=== PATIENT | female | born 1945 | race Two or more races ===

== ENCOUNTER 2024-05-03 11:25 | Day surgery (SDC) | payer OTHER, MEDICAID, SELFPAY ==
[2024-05-03] VITALS (10 sets, daily range): BP systolic 140–209; BP diastolic 54–98; PULSE 51–79; RESP 13–22; TEMP 36.8–37; O2SAT 93–99; BMI 26.2
[2024-05-03] MEDS: hydrALAZINE INJ 20 MG/ML VIAL 10 MG IVP (12:40)
[2024-05-03] MEDS: DiphenhydrAMINE INJ 50 MG/ML VIAL 25 MG IV (13:14)
[2024-05-03] MEDS: MIDAZOLAM INJ 1 MG/ML VIAL 2 ML (ASD USE ONLY) 2 MG IV ×2 (13:14→13:20)
[2024-05-03] MEDS: fentaNYL CIT INJ 50 mCg/ML AMP 2ML (ASD USE ONLY) IV (13:14)
== END 2024-05-03 14:13 | disposition home or self-care (01) ==
PROVIDERS: PCP Physician Assistant; Referring Provider Specialist; Visit Provider Specialist
PROC: (CPT 43239; principal; 2024-05-03 12:15)
DX: K21.00 Gastro-esophageal reflux disease with esophagitis, without bleeding (principal); K29.70 Gastritis, unspecified, without bleeding; K29.50 Unspecified chronic gastritis without bleeding; B96.81 Helicobacter pylori [H. pylori] as the cause of diseases classified elsewhere; E11.9 Type 2 diabetes mellitus without complications; I10 Essential (primary) hypertension; E78.5 Hyperlipidemia, unspecified; Z79.899 Other long term (current) drug therapy; Z79.02 Long term (current) use of antithrombotics/antiplatelets
CPT/HCPCS: 43239; A4649; J0360; J1200; J2250; J3010

== ENCOUNTER → 2024-07-09 | Outpatient (CLI) | payer OTHER, MEDICAID, SELFPAY ==
[2024-07-09 12:56] LABS: Basophils % (Auto) 0 % (0-2.5); Eosinophils # (Auto) 0.2 Thou/mm3 (0.0-0.5); Eosinophils % (Auto) 2 % (0-10); Hematocrit 36.9 % (36.0-46.0); Hemoglobin 12.5 g/dL (12.0-16.0); Immature Granulocytes % (Auto) 1 % (0-0); Immature Granulocytes Auto 0.05 Thou/mm3 (0.00-0.00); Lymphocytes # (Auto) 2.3 Thou/mm3 (1.0-4.8); Lymphocytes % (Auto) 31 % (10-50); Mean Corpuscular HGB Conc 33.9 g/dl (31.0-37.0); Mean Corpuscular Hemoglobin 29.5 pg (25.0-35.0); Mean Corpuscular Volume 87 fL (80-100); Monocytes # (Auto) 0.4 Thou/mm3 (0.0-0.8); Monocytes % (Auto) 6 % (0-12); Neutrophils # (Auto) 4.4 Thou/mm3 (1.8-7.7); Neutrophils % (Auto) 60 % (37-80); Nucleated Red Blood Cell % 0 /100 WBC (0); Platelet Count 253 Thou/mm3 (140-440); RDW Standard Deviation 41.3 fL (36.4-46.3); Red Blood Count 4.24 Miln/mm3 (4.00-5.20); White Blood Count 7.3 Thou/mm3 (3.6-11.0)
[2024-07-09 13:15] LABS: Alanine Aminotransferase 11 U/L (10-49); Albumin, Serum 3.4 gm/dL (3.4-4.8); Albumin/Globulin Ratio 2.1 (1.2-2.2); Alkaline Phosphatase 69 U/L (46-116); Anion Gap 5 (7-16); Aspartate Amino Transferase 11 U/L (0-34); BUN/Creatinine Ratio 19 Ratio (12-20); Bilirubin,Total 0.3 mg/dL (0.3-1.2); Blood Urea Nitrogen 33 mg/dL (9-23); Calcium 8.8 mg/dL (8.3-10.6); Calcium (Corrected) 9.3 mg/dL (8.5-10.1); Carbon Dioxide 24.3 mMol/L (20.0-31.0); Chloride 109 mMol/L (98-107); Creatinine (Component) 1.7 mg/dL (0.6-1.3); Globulin 1.6 gm/dL (2.3-3.5); Glucose 174 mg/dL (74-106); Osmolality,Calculated 286 (275-295); Potassium 4.2 mMol/L (3.4-5.1); Sodium 138 mMol/L (136-145); eGFR 31 See Note
== END | disposition home or self-care (01) ==
LOC: COPL 11:06
PROVIDERS: PCP Family Medicine; Referring Provider Specialist; Visit Provider Specialist
DX: R14.0 Abdominal distension (gaseous) (principal); R10.32 Left lower quadrant pain; R10.31 Right lower quadrant pain
CPT/HCPCS: 36415; 80053; 85025

== ENCOUNTER → 2024-07-11 | Outpatient (CLI) | payer OTHER, MEDICAID, SELFPAY ==
[2024-07-11 10:21] LABS: OBS Performed By LAB; OBS QC OK? Yes
[2024-07-11 14:36] LABS: OBS Developer Expiration Date 2026-09; OBS Developer Lot # 23003
[2024-07-11 14:38] LABS: Occult Blood, Stool Negative (Negative); Occult Blood, Stool #2 Negative (Negative); Occult Blood, Stool #3 Negative (Negative)
== END | disposition home or self-care (01) ==
LOC: SLDO 09:54
PROVIDERS: Referring Provider Specialist; Visit Provider Specialist
DX: R14.0 Abdominal distension (gaseous) (principal); R10.31 Right lower quadrant pain; R10.32 Left lower quadrant pain
CPT/HCPCS: 82270

== ENCOUNTER 2024-07-22 08:45 | Day surgery (SDC) | payer OTHER, MEDICAID, SELFPAY ==
[2024-07-19 15:07] VITALS: BMI 27.3
[2024-07-22] VITALS (8 sets, daily range): BP systolic 138–205; BP diastolic 65–88; PULSE 81–90; RESP 12–22; TEMP 36.4–36.7; O2SAT 93–100; BMI 26.5
--- NOTE | 2024-07-22 10:33 | SUR.PHASEII ---
PATIENT INTO RECOVERY WITH NO ACUTE DISTRESS NOTED, V/S STABLE , NO COMPLAINTS OF PAIN OR NAUSEA AT THIS TIME, PATIENT REPOSITIONED FOR COMFORT, REPORT RECEIVED FROM PAMELA GUERRA.
[2024-07-22] MEDS: SODIUM CHLORIDE 0.9% 500 ML 500 ML 20 ML IV (10:35)
[2024-07-22] MEDS: MIDAZOLAM INJ 1 MG/ML VIAL 2 ML (ASD USE ONLY) 2 MG IV (10:36)
[2024-07-22] MEDS: hydrALAZINE INJ 20 MG/ML VIAL (10:36)
[2024-07-22] MEDS: ONDANSETRON INJ 2 MG/ML INJ 2 ML 4 MG IV (10:36)
[2024-07-22] MEDS: fentaNYL CIT INJ 50 mCg/ML AMP 2ML (ASD USE ONLY) IV (10:36)
[2024-07-22] MEDS: DiphenhydrAMINE INJ 50 MG/ML VIAL 25 MG IV (10:38)
== END 2024-07-22 11:12 | disposition home or self-care (01) ==
PROVIDERS: PCP Physician Assistant; Referring Provider Specialist; Visit Provider Specialist
PROC: (CPT 43239; principal; 2024-07-22 13:15)
DX: K20.91 Esophagitis, unspecified with bleeding (principal); K29.61 Other gastritis with bleeding; K29.51 Unspecified chronic gastritis with bleeding
CPT/HCPCS: 43239; A4649; J0360; J1200; J2250; J2405; J3010; J7040

== ENCOUNTER → 2024-09-02 | Outpatient (CLI) | payer OTHER, MEDICAID, SELFPAY ==
[2024-09-02 09:39] LABS: Glucose Estimated Average 186 mg/dL (80-131); Hemoglobin A1C 8.1 % Hgb (4.8-6.0)
[2024-09-02 09:51] LABS: Alanine Aminotransferase 13 U/L (10-49); Albumin, Serum 4.2 gm/dL (3.4-4.8); Albumin/Globulin Ratio 1.7 (1.2-2.2); Alkaline Phosphatase 93 U/L (46-116); Anion Gap 10 (7-16); Aspartate Amino Transferase 16 U/L (0-34); BUN/Creatinine Ratio 21 Ratio (12-20); Bilirubin,Total 0.5 mg/dL (0.3-1.2); Blood Urea Nitrogen 33 mg/dL (9-23); Calcium 9.8 mg/dL (8.3-10.6); Calcium (Corrected) 9.8 mg/dL (8.5-10.1); Carbon Dioxide 25.8 mMol/L (20.0-31.0); Cardiac Risk Estimate 6.3 RATIO (3.7-5.6); Chloride 107 mMol/L (98-107); Cholesterol 290 mg/dL (132-200); Creatinine (Component) 1.6 mg/dL (0.6-1.3); Globulin 2.5 gm/dL (2.3-3.5); Glucose 183 mg/dL (74-106); HDL Cholesterol 46 mg/dL (40-60); LDL Cholesterol,Calculated 183 mg/dL (0-130); Osmolality,Calculated 297 (275-295); Potassium 4.6 mMol/L (3.4-5.1); Sodium 143 mMol/L (136-145); Total Protein 6.7 gm/dL (5.7-8.2); Triglycerides 303 mg/dL (30-150); eGFR 33 See Note
== END | disposition home or self-care (01) ==
LOC: COPL 08:49
PROVIDERS: PCP Family Medicine; Referring Provider Physician Assistant; Visit Provider Physician Assistant
DX: E11.65 Type 2 diabetes mellitus with hyperglycemia (principal); I10 Essential (primary) hypertension; E78.5 Hyperlipidemia, unspecified
CPT/HCPCS: 36415; 80053; 80061; 83036

== ENCOUNTER 2024-09-09 09:45 | Observation (INO) | payer OTHER, MEDICAID, SELFPAY ==
[2024-09-09] VITALS (7 sets, daily range): BP systolic 141–180; BP diastolic 67–79; PULSE 51–59; RESP 16–19; TEMP 35.9–36.5; O2SAT 98–100; BMI 29.2
--- NOTE | 2024-09-09 10:16 | EKG_ITS ---
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
--- NOTE | 2024-09-09 10:17 | PD.EDRME ---
Rapid Medical Screening Exam RME Arrival date/time: 09/09/24 09:45 79-year-old female with a history of type 2 diabetes, hypertension, hyperlipidemia presents to the emergency room with a chief complaint of dizziness and lightheadedness x 10 days. Patient states her dizziness is worse with sudden positional changes. I have greeted and performed a focused initial assessment of this patient. A comprehensive ED assessment and evaluation of the patient, analysis of all test results, and completion of the medical decision making process will be conducted by additional ED providers. Chief Complaint: Dizziness Vital signs reviewed by provider: Yes
[2024-09-09] MEDS: MECLIZINE HCL 25 MG TABLET PO (10:48)
[2024-09-09 11:17] LABS: Basophils % (Auto) 0 % (0-2.5); Eosinophils # (Auto) 0.2 Thou/mm3 (0.0-0.5); Eosinophils % (Auto) 3 % (0-10); Hematocrit 37.2 % (36.0-46.0); Hemoglobin 12.7 g/dL (12.0-16.0); Immature Granulocytes % (Auto) 1 % (0-0); Immature Granulocytes Auto 0.03 Thou/mm3 (0.00-0.00); Lymphocytes # (Auto) 1.6 Thou/mm3 (1.0-4.8); Lymphocytes % (Auto) 26 % (10-50); Mean Corpuscular HGB Conc 34.1 g/dl (31.0-37.0); Mean Corpuscular Hemoglobin 29.1 pg (25.0-35.0); Mean Corpuscular Volume 85 fL (80-100); Monocytes # (Auto) 0.3 Thou/mm3 (0.0-0.8); Monocytes % (Auto) 5 % (0-12); Neutrophils # (Auto) 4.2 Thou/mm3 (1.8-7.7); Neutrophils % (Auto) 66 % (37-80); Nucleated Red Blood Cell % 0 /100 WBC (0); Platelet Count 250 Thou/mm3 (140-440); RDW Standard Deviation 40.4 fL (36.4-46.3); Red Blood Count 4.36 Miln/mm3 (4.00-5.20); White Blood Count 6.4 Thou/mm3 (3.6-11.0)
[2024-09-09 11:33] LABS: Alanine Aminotransferase 11 U/L (10-49); Albumin/Globulin Ratio 1.8 (1.2-2.2); Alkaline Phosphatase 71 U/L (46-116); Anion Gap 8 (7-16); Aspartate Amino Transferase 14 U/L (0-34); BUN/Creatinine Ratio 21 Ratio (12-20); Bilirubin,Total 0.4 mg/dL (0.3-1.2); Blood Urea Nitrogen 35 mg/dL (9-23); Calcium 9.1 mg/dL (8.3-10.6); Calcium (Corrected) 9.1 mg/dL (8.5-10.1); Carbon Dioxide 25.1 mMol/L (20.0-31.0); Chloride 107 mMol/L (98-107); Creatinine (Component) 1.7 mg/dL (0.6-1.3); Estimated Creatinine Clearance 22.8 mL/min (>60); Globulin 2.2 gm/dL (2.3-3.5); Glucose 225 mg/dL (74-106); Osmolality,Calculated 294 (275-295); Potassium 4.7 mMol/L (3.4-5.1); Sodium 140 mMol/L (136-145); Total Protein 6.2 gm/dL (5.7-8.2); Troponin I < 0.020 ng/mL (0.0-0.045); eGFR 31 See Note
[2024-09-09 13:15] LABS: Collection Type, Urine Clean Catch
--- NOTE | 2024-09-09 13:36 | EDNOTE_ITS ---
<Statement entered by Mechelle Ochoa MD - 09/09/24 15:15> As co-signing physician, I was present and available for consult prn. I concur with the plan and care as documented by the midlevel provider. ED General RME/HPI General Chief complaint: Dizziness Stated complaint: DIZZINESS X1 WEEK Time Seen by Provider: 09/09/24 13:35 Arrival date/time: 09/09/24 09:45 CC: Lightheaded dizziness HPI ongoing for the past 10 days. Patient denies fall. States she actually gets dizzy and remains dizzy when sitting up or standing up. No prior history of similar events takes medication for diabetes hypertension hyperlipidemia. No other complaints including chest pain or shortness of breath at this time. Please note patient just stated to me that she stopped her Lasix 1 week ago. RME / HPI RME / HPI narrative: 09/09/24 09:45 79-year-old female with a history of type 2 diabetes, hypertension, hyperlipidemia presents to the emergency room with a chief complaint of dizziness and lightheadedness x 10 days. Patient states her dizziness is worse with sudden positional changes. I have greeted and performed a focused initial assessment of this patient. A comprehensive ED assessment and evaluation of the patient, analysis of all test results, and completion of the medical decision making process will be conducted by additional ED providers. Related Data Home Medications ?Medication ?Instructions ?Recorded ?Confirmed lisinopril 20 mg tablet 40 mg PO QDAY 03/13/1807/22 simvastatin 20 mg tablet 40 mg PO DAILY 03/13/1806/30 amlodipine 10 mg tablet 10 mg PO DAILY 03/02/2306/30 furosemide 40 mg tablet (Lasix) 40 mg PO QDAY PRN Kendall a 03/02/23 09/09/24 gabapentin 300 mg capsule 600 mg PO TID 03/02/2307/22 metoprolol succinate 25 mg 25 mg PO DAILY 03/02/23 tablet,extended release 24 hr ezetimibe 10 mg tablet 10 mg PO QDAY 08/31/2307/22 insulin glargine 100 unit/mL (3 10 unit subcut BIDWMEA L 08/31/23 07/22/24 mL) subcutaneous pen (Lantus Solostar U-100 Insulin) tirzepatide 2.5 mg/0.5 mL 2.5 mg subcut QWEEK 08/31/23 07/22/24 subcutaneous pen injector (Sol) hydrochlorothiazide 25 mg tablet 25 mg PO QDAY 5 07/22/24 pantoprazole 40 mg tablet,delayed 40 mg PO QDAY 07/22/24 release Allergies Allergy/AdvReac Type Severity Reaction Status Date / Time No Known Allergies Allergy Verified 09/09/24 09:46 Review of Systems Review of Systems Narrative Review of Systems: GEN: No fever, no chills, no weight loss EYES: No discharge, no visual changes, no pain HEENT: No ear pain, no congestion, no sore throat PULM: No shortness of breath, no cough, no congestion CV: No chest pain, no dyspnea on exertion, no palpitations GI: No nausea, no vomiting, no diarrhea, no pain, no constipation : No frequency, no urgency, no dysuria MUSC/SKEL: No joint pain, no back pain SKIN: No rash PSYCH: No hallucinations, no depression HEME/LYMPH: No easy bleeding or bruising tendencies NEURO: No weakness, no headache Past Medical History Past Medical History NEUROLOGIC: Positive Neurological Disorders and Peripheral Neuropathy; Negative Seizures CARDIAC: Positive Cardiac Disorders, Hypercholesterolemia, Edema and Hypertension; Negative Congestive Heart Failure RESPIRATORY: Negative Chronic Obstructive Pulmonary Disease (COPD) GASTROINTESTINAL: Positive Gastrointestinal Disorders (ABDOMINAL PAIN AND DIARRHEA AFTER EATING) GENITOURINARY: Negative Genitourinary Disorders, Renal Disease or Kidney Stones REPRODUCTIVE: Positive Previous Pregnancies; Negative Endometriosis MUSCULOSKELETAL: Positive Musculoskeletal Disorders and Arthritis ENT: Positive Cataracts (RIGHT) ENDOCRINE: Positive Endocrine Disorders and Diabetes Mellitus Type 2; Negative Diabetes Mellitus Type 1 or Hypothyroidism HEMATOLOGIC: Negative Blood Disorders PSYCHO/SOCIAL: Positive Depression and Anxiety OTHER HISTORY: Negative Autoimmune Disease, Falls, Blood Transfusions, Anesthesia Reactions, Chicken Pox or Cancer Family History FAMILY HISTORY: Negative Family Psychiatric Problems, Family Respiratory Disorders, Family Cardiac Disorders, Family Gastrointestinal Problems, Family Cancer, Family Surgery or Family Anesthesia Reaction Surgical History SURGICAL: Positive Hysterectomy and Tubal Ligation Social History SMOKING STATUS: Never smoker ED Exam Narrative Physical exam: [General: Not in any acute distress Head normocephalic HEENT: Within acceptable limits Neck is supple nontender Chest equal chest rise nontender to palpation Respiratory: Clear to auscultation no wheezes crackles or rubs CV: Rate rhythm is regular, bradycardic, no murmurs rubs or clicks Abdomen is distended secondary to body habitus soft nontender no masses positive bowel sounds all 4 quadrants Back: No CVA tenderness no spinous process tenderness from cervical spine thoracic and lumbar spine Skin: Intact no petechiae rash induration ulceration or crepitus Extremities: Moving all extremity against resistance cap refill less than 2 seconds neurosensory intact Neuro: Awake alert oriented x3 Glascow coma 15 no focal deficits] Course Quality Measures none Orders Category Date Time Status EKG (ED ONLY) *Do not use* NOW Care 09/09/24 10:16 Completed Orthostatic Vitals NOW Care 09/09/24 10:16 Active Saline [Insert IV] NOW Care 09/09/24 13:38 Active EKG (ED Only) Stat Exams 09/09/24 10:16 Draft CBC Stat Lab 09/09/24 10:55 Completed Comprehensive Metabolic Panel Stat Lab 09/09/24 10:55 Completed Troponin I Stat Lab 09/09/24 10:55 Completed Urinalysis Stat Lab 09/09/24 13:06 Completed Urine Culture Stat Lab 09/09/24 13:06 Received Meclizine HCl [Antivert] Med 09/09/24 10:16 Discontinued 25 mg PO X1 ONE Sodium Chloride 0.9% 500 ml [Ns] 500 ml Med 09/09/24 13:38 Discontinued IV 999 mls/hr Vital Signs Vital signs: Vital Signs Temperature 97.7 F 09/09/24 10:18 Pulse Rate 57 L 09/09/24 10:18 Respiratory Rate 19 09/09/24 10:18 Blood Pressure 141/73 H 09/09/24 10:18 Pulse Oximetry (%) 98 09/09/24 10:18 Oxygen Delivery Method Room Air 09/09/24 10:18 [facility] Patient data External records reviewed:: [facility] previous records Clinical information provided by:: patient Social determinants that could affect healthcare access:: none Patient has the following chronic illnesses:: Hypertension hyperlipidemia diabetes How is presenting disease/condition affected by chronic disease/condition?: u neffected by Evaluation data The following diagnostics were reviewed and interpreted by me:: lab results, radiology exam(s) and EKG tracing(s) Lab and/or radiology exams considered but not ordered:: EKG performed at 1024 shows a ventricular rate of 5 2 [place] interval of 172 QRS 100 QTc of 414 is a sinus bradycardia. When compared to an old EKG there are no significant changes other than that is a regular rate. CBC shows no acute leukocytosis anemia thrombocytopenia CMP shows BUN of 35 creatinine 1.7 glucose of 225 no transaminitis or T. bili elevation Interpretation Summary: Review of the medical record show the patient has a new onset of bradycardia, patient also has CKD that is been ongoing since June. Review of the medications listed in the system show the patient is not on amlodipine 10 mg, as well as metoprolol and hydrochlorothiazide with Lasix. Patient's case discussed at length with the resident for Dr. Villalobos. Agrees to accept the patient for observation. 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 Recently coming off the Lasix I am not sure about her fluid status being part of the problem as well. Resident is in agreement with this plan to observe ops this patient patient is agreement with this plan Medications Medications considered but not ordered:: None Medication administrations:: Medication Administration History Discontinued Medications Sodium Chloride (Ns) 500 mls @ 999 mls/hr IV .Q31M ONE Stop: 09/09/24 14:08 Last Admin: 09/09/24 13:52 Dose: 999 mls/hr Documented By: CS Meclizine HCl (Meclizine Hcl 25 Mg Tablet) 25 mg PO X1 ONE Stop: 09/09/24 10:17 Last Admin: 09/09/24 10:48 Dose: 25 mg Documented By: KM None Consultations Consultation(s) initiated? (list below): No Diagnosis Differential Diagnosis ED Complaint MDM: Symptomatic bradycardia LUKE electrolyte imbalances Most likely diagnosis given after review of the tests above:: Symptomatic bradycardia LUKE Admission Indicated Admission indicated?: indicated Explain why admission is indicated or not indicated:: Requires further medical management Admission Request Was there a request for admission?: No Disposition Plan Disposition Plan: Admit Medical Decision Making Differential Diagnosis Differential Diagnosis: Symptomatic bradycardia LUKE electrolyte imbalances Lab Data 09/09/24 10:55 09/09/24 10:55 Labs: Lab Results 09/09/24 09/09/24 Range/Units 10:55 13:06 WBC 6.4 (3.6-11.0) Thou/mm3 RBC 4.36 (4.00-5.20) Miln/mm3 Hgb 12.7 (12.0-16.0) g/dL Hct 37.2 (36.0-46.0) % MCV 85 (80-100) fL MCH 29.1 (25.0-35.0) pg MCHC 34.1 (31.0-37.0) g/dl RDW Std Deviation 40.4 (36.4-46.3) fL Plt Count 250 (140-440) Thou/mm3 Neut % (Auto) 66 (37-80) % Lymph % (Auto) 26 (10-50) % [place] % (Auto) 5 (0-12) % Eos % (Auto) 3 (0-10) % Baso % (Auto) 0 (0-2.5) % Neut # (Auto) 4.2 (1.8-7.7) Thou/mm3 Lymph # (Auto) 1.6 (1.0-4.8) Thou/mm3 [place] # (Auto) 0.3 (0.0-0.8) Thou/mm3 Eos # (Auto) 0.2 (0.0-0.5) Thou/mm3 Baso # (Auto) 0.0 (0.0-0.2) Thou/mm3 Immature Gran # (Auto) 0.03 H (0.00-0.00) Thou/mm3 Absolute Nucleated RBC 0.00 (0.00-0.00) Thou/mm3 Immature Gran % 1 H (0-0) % Nucleated RBC % 0 (0) /100 WBC Sodium 140 (136-145) mMol/L Potassium 4.7 (3.4-5.1) mMol/L Chloride 107 (98-107) mMol/L Carbon Dioxide 25.1 (20.0-31.0) mMol/L Anion Gap 8 (7-16) BUN 35 H (9-23) mg/dL Creatinine 1.7 H (0.6-1.3) mg/dL Estim Creat Clear Calc 22.8 L (>60) mL/min eGFR 31 L (60 - ) See Note BUN/Creatinine Ratio 21 H (12-20) Ratio Glucose 225 H (74-106) mg/dL Calculated Osmolality 294 (275-295) Calcium 9.1 (8.3-10.6) mg/dL Corrected Calcium 9.1 (8.5-10.1) mg/dL Total Bilirubin 0.4 (0.3-1.2) mg/dL AST 14 (0-34) U/L ALT 11 (10-49) U/L Alkaline Phosphatase 71 (46-116) U/L Troponin I < 0.020 (0.0-0.045) ng/mL Total Protein 6.2 (5.7-8.2) gm/dL Albumin 4.0 (3.4-4.8) gm/dL Globulin 2.2 L (2.3-3.5) gm/dL Albumin/Globulin Ratio 1.8 (1.2-2.2) Ur Collection Type Clean Catch Urine Color Lt-Yellow (Lt Yel-Yel) Urine Clarity Hazy (Clear/Hazy) Urine pH 6.0 (5.0-7.0) Ur Specific [place] 1.017 (1.001-1.035) Urine Protein 3+ A (Neg - Trace) Urine Glucose (UA) 3+ A (Negative) Urine Ketones Negative (Negative) Urine Blood 1+ A (Negative) Urine Nitrite Negative (Negative) Urine Bilirubin Negative (Negative) Urine Urobilinogen (Auto) Negative (0.0-1.0) mg/dL Ur Leukocyte Esterase Positive (Negative) Urine RBC 7 H (0-3) /hpf Urine WBC 42 H (0-5) /hpf Ur Squamous Epith Cells 2 (0-5) /hpf Urine Bacteria None (None) Hyaline Casts < 1 (0-1) /hpf Discharge Plan Plan Patient Disposition: Other Care w/in Hosp ([facility]) Patient condition on transfer: Stable Prescriptions/Referrals Prescriptions/Med Rec: No Action lisinopril 20 mg Tablet 40 mg PO QDAY simvastatin 20 mg Tablet 40 mg PO DAILY amlodipine 10 mg tablet 10 mg PO DAILY gabapentin 300 mg capsule 600 mg PO TID metoprolol succinate 25 mg tablet extended release 24 hr 25 mg PO DAILY furosemide [Lasix] 40 mg tablet 40 mg PO QDAY PRN (Reason: Edema) ezetimibe 10 mg tablet 10 mg PO QDAY insulin glargine [Lantus Solostar U-100 Insulin] 100 unit/mL (3 mL) insulin pen 10 unit subcut BIDWMEAL Rx Instructions: IF BG >200 Mounjaro 2.5 mg/0.5 mL pen injector 2.5 mg SUBCUT QWEEK Rx Instructions: ON SUNDAYS pantoprazole 40 mg tablet,delayed release (DR/EC) 40 mg PO QDAY Patient Comments: TAKE 1 TABLET BY MOUTH EVERY DAY hydrochlorothiazide 25 mg tablet 25 mg PO QDAY Patient Comments: TAKE 1 TABLET BY MOUTH EVERY MORNING FOR 90 DAYS Referrals: Rubia Matthews PA-C [Primary Care Provider] - In 1 week Problem List Clinical Impression: Symptomatic bradycardia, LUKE (acute kidney injury) Patient/Caregiver Discharge Instructions Print Language: Filipino Stand Alone Forms: Jennifer Award Info., Patient Portal Info Letter PA/HOLE DIGGER OPERATOR Supervising Physician PA/HOLE DIGGER OPERATOR Supervising Physician: Bhanu Gunderson ENP
[2024-09-09] MEDS: SODIUM CHLORIDE 0.9% 500 ML 500 ML 999 ML IV (13:52)
[2024-09-09 14:03] LABS: Bilirubin,Urine Negative (Negative); Blood,Urine 1+ (Negative); Color,Urine Lt-Yellow (Lt Yel-Yel); Glucose, Urine 3+ (Negative); Hyaline Casts,Urine < 1 /hpf (0-1); Ketones,Urine Negative (Negative); Leukocyte Esterase,Urine Positive (Negative); Nitrite,Urine Negative (Negative); Protein,Urine 3+ (Neg - Trace); RBC,Urine 7 /hpf (0-3); Specific Gravity,Urine 1.017 (1.001-1.035); Squamous Epithelial Cell,Urine 2 /hpf (0-5); Urobilinogen,Urine Negative mg/dL (0.0-1.0); WBC,Urine 42 /hpf (0-5)
[2024-09-09 14:05] LABS: Clarity,Urine Hazy (Clear/Hazy)
--- NOTE | 2024-09-09 15:06 | ESHP_ITS ---
<Statement entered by Aditya Pro MD - 09/09/24 22:22> I discussed with and supervised the academic intern physician involved in the care of this patient. Patient assessment and plan was discussed with entire medicine team, including my attending. I agree with the assessment and plan as documented by academic intern doctor. Patient care was discussed with my attending physician Dr. Ilda Pro, PGY-2 Documentation for date of: 09/09/24 HPI History of Present Illness Chief complaint: Dizziness History of present illness: Ms. Gamez is a 79-year-old female with past medical history of chronic kidney disease (follows Dr. Oquendo), hypertension, hyperlipidemia, diabetes mellitus, GERD and chronic pain who presented to [facility] emergency department 09/09/2024 with chief complaint of dizziness. Patient reported feeling dizzy at times, exacerbated dizziness on sitting and standing up and also at times with movement of head. Patient denies any similar episodes in the past, patient is on diuretics Lasix and hydrochlorothiazide which she stopped taking recently about 5 to 7 days ago. Patient denies any syncope or presyncopal symptoms, denies any darkness falling in front of the eyes, denies any falls. Patient denies any history of cardiac issues, does report seeing president and cmo Dr Pena more than 3 years ago, was referred by primary care physician back then. Patient follows outpatient with Dr. Mario Stewart as primary care physician, does regular follow-up and follows up with Dr. Oquendo as her wrist hemmer. Patient denies any shortness of breath, chest pain, headache and dysuria. ED course: Patient on presentation complained of dizziness, on presentation vitals significant for blood pressure 141/73, heart rate 57, respiratory 19, temp 97.7, O2 sat 98 on room air. ED labs significant for BUN 35, creatinine 1.7, GFR 31, glucose 225, globulin 2.2. Urine analysis shows urine protein 3+, glucose 3+, blood 1+, leukocyte esterase positive, RBC 7, WBC 42. EKG shows sinus bradycardia. Patient was given meclizine 25 mg p.o. x 1 and 500 cc bolus of NS in ED. Review of Systems Review of Systems Narrative Review of Systems: ROS: -CONSTITUTIONAL: Denies weight loss, fever and chills. -HEENT: Denies changes in vision and hearing. -RESPIRATORY: Denies SOB and cough. -CV: Denies palpitations and Chest Pain. -GI: Denies abdominal pain, nausea, vomiting,constipation and diarrhea. -: Denies dysuria and urinary frequency. -MSK: Denies myalgia and joint pain. -SKIN: Denies rash and pruritus. -NEUROLOGICAL: Denies headache and syncope. Positive for dizziness. -PSYCHIATRIC: Denies recent changes in mood. Denies anxiety and depression. Past Medical History Past Medical History Comments PMH COMMENT: PMH: Positive for chronic kidney disease (follows Dr. Oquendo), hypertension, hyperlipidemia, diabetes melitis, GERD and chronic pain PSHx: Back surgery, shoulder surgery Allergies: No known drug and food allergies Social history: -Smoking: Denies -Alcohol Use: Denies -Illicit Drug Use: Denies -Occupation: Retired Family History: No significant pertinent family history Exam Vital Signs Temp Pulse Resp BP Pulse Ox O2 Del Method 97.5 F 59 L 18 175/75 H 100 Room Air 09/09/24 14:22 09/09/24 14:27 09/09/24 14:22 09/09/24 14:27 09/09/24 14:22 09/09/24 14:22 Narrative Exam Physical Exam General: Awake and in no acute distress. Conversational and non-toxic appearing. HEENT: Normocephalic, atraumatic, mucous membranes moist. Heart: Sinus bradycardia, regular rhythm, no murmurs. Lungs: Clear to auscultation with no wheezing or crackles. Abdomen: Soft, nondistended, nontender, positive bowel sounds. ?No guarding or rebound tenderness. Neurologic: Alert and oriented x3, no gross neurological deficit, and patient able to move all 4 extremities. Extremities: Trace lower extremity edema. Skin: No rash or ecchymoses. Results: Labs 09/10/24 04:27 09/10/24 04:27 Labs: Short CBC 09/09/24 Range/Units 10:55 WBC 6.4 (3.6-11.0) Thou/mm3 Hgb 12.7 (12.0-16.0) g/dL Hct 37.2 (36.0-46.0) % Plt Count 250 (140-440) Thou/mm3 BMP 09/09/24 10:55 Sodium 140 Potassium 4.7 Chloride 107 Carbon Dioxide 25.1 BUN 35 H Creatinine 1.7 H Glucose 225 H Calcium 9.1 Cardiac Enzymes 09/09/24 Range/Units 10:55 Troponin I < 0.020 (0.0-0.045) ng/mL Liver Function 09/09/24 Range/Units 10:55 Total Bilirubin 0.4 (0.3-1.2) mg/dL AST 14 (0-34) U/L ALT 11 (10-49) U/L Alkaline Phosphatase 71 (46-116) U/L Albumin 4.0 (3.4-4.8) gm/dL Urine 09/09/24 Range/Units 13:06 Urine Color Lt-Yellow (Lt Yel-Yel) Urine Clarity Hazy (Clear/Hazy) Urine pH 6.0 (5.0-7.0) Ur Specific [place] 1.017 (1.001-1.035) Urine Protein 3+ A (Neg - Trace) Urine Glucose (UA) 3+ A (Negative) Quality Measures Quality Measures none Advance care planning discussed with:: patient Medications Home Medications and Allergies Home Medications ?Medication ?Instructions ?Recorded ?Confirmed ?Type lisinopril 20 mg tablet 40 mg PO QDAY 03/13/1809/09 History Held on 09/10/24. Instructions: Resume on 09/17/24. Follow up with PCP simvastatin 20 mg tablet 40 mg PO DAILY 03/13/1808/27 History amlodipine 10 mg tablet 10 mg PO DAILY 03/02/2308/27 History furosemide 40 mg tablet (Lasix) 40 mg PO QDAY PRN Kendall a 03/02/23 09/09/24 History Held on 09/10/24. Instructions: Resume on 09/17/24. Follow up with PCP gabapentin 300 mg capsule 300 mg PO TID 03/02/2309/09 History ezetimibe 10 mg tablet 10 mg PO QDAY 08/31/2309/09 History tirzepatide 2.5 mg/0.5 mL 2.5 mg subcut QWEEK 08/31/23 09/09/24 History subcutaneous pen injector (Mounjaro) hydrochlorothiazide 25 mg tablet 25 mg PO QDAY 07/22/2 5 09/09/24 History Held on 09/10/24. Instructions: Resume on 09/17/24. Follow up with PCP pantoprazole 40 mg tablet,delayed 40 mg PO QDAY 09/09/24 History release dicyclomine 10 mg capsule 10 mg PO BID 09/09/24 History tizanidine 4 mg tablet 4 mg PO HS PRN muscle [facility] 09/09/24 09/09/24 History Allergies Allergy/AdvReac Type Severity Reaction Status Date / Time No Known Allergies Allergy Verified 09/09/24 09:46 Visit Medications Acetaminophen (Acetaminophen 325 Mg Tablet) 650 mg PO Q6H PRN PRN Reason: Pain (1-3) & Fever >100.4 Stop: 10/09/24 14:50 Dextrose (Dextrose 50%-Water Inj 50 Ml Syringe) 25 ml IV Q15MIN PRN PRN Reason: BG 50-70 responsive npo pt Stop: 10/09/24 15:02 Dextrose (Dextrose 50%-Water Inj 50 Ml Syringe) 50 ml IV Q15MIN PRN PRN Reason: BG <50 OR BG <70 & pt unresponsive Stop: 10/09/24 15:02 Ezetimibe (Ezetimibe 10 Mg Tablet) 10 mg PO QDAY [facility] Stop: 10/10/24 08:59 Gabapentin (Gabapentin 300 Mg Capsule) 600 mg PO TID [facility] Stop: 10/09/24 21:59 Glucagon (Glucagon Inj 1 Mg Vial) 1 mg IM Q15MIN PRN PRN Reason: BG <70, and no IV access Heparin Sodium (Porcine) (Heparin Sod Inj 5000 Unit/Ml Vial) 5,000 unit SC Q8HR [facility] Stop: 09/23/24 21:59 Hydralazine HCl (Hydralazine Inj 20 Mg/Ml Vial) 10 mg IV Q6H PRN PRN Reason: SBP > 170, DBP > 100 Stop: 10/09/24 14:59 Hydralazine HCl (Hydralazine Hcl 10 Mg Tablet) 10 mg PO TID [facility] Stop: 10/09/24 21:59 Lactated Ringer's (Lactated Ringers) 1,000 mls @ 75 mls/hr IV .[id number] [facility] Stop: 09/10/24 04:19 Insulin Human Lispro (Insulin Lispro (Admelog) 1 Unit/0.01 Ml Unit) 0 unit SC AC CLIFF; Protocol Stop: 10/09/24 16:59 Ondansetron HCl (Ondansetron Inj 2 Mg/Ml Inj 2 Ml) 4 mg IV Q6H PRN; Protocol PRN Reason: NAUSEA OR VOMITING Stop: 10/09/24 14:50 Pantoprazole Sodium (Pantoprazole 40 Mg Tablet) 40 mg PO QDAY CLIFF Stop: 10/10/24 08:59 Sennosides (Senna Tablet) 2 tab PO BID PRN; Protocol PRN Reason: CONSTIPATION Stop: 10/09/24 14:50 Discontinued Medications Sodium Chloride (Ns) 500 mls @ 999 mls/hr IV .Q31M ONE Stop: 09/09/24 14:08 Last Infusion: 09/09/24 14:23 Dose: Infused Meclizine HCl (Meclizine Hcl 25 Mg Tablet) 25 mg PO X1 ONE Stop: 09/09/24 10:17 Last Admin: 09/09/24 10:48 Dose: 25 mg Assessment & Plan Plan Assessment and plan: Summary: Ms. Gamez is a 79-year-old female with past medical history of chronic kidney disease (follows Dr. Oquendo), hypertension, hyperlipidemia, diabetes mellitus, GERD and chronic pain who presented to [facility] emergency department 09/09/2024 with chief complaint of dizziness. Patient admitted to the hospital for observation for further workup. #Dizziness #Sinus bradycardia #Dehydration Reported feeling dizzy at times, exacerbated dizziness on sitting and standing up and also at times with movement of head. Patient denies any similar episodes in the past, patient is on diuretics Lasix and hydrochlorothiazide which she stopped taking recently about 5 to 7 days ago. EKG shows sinus bradycardia. Patient on metoprolol succinate and amlodipine at home for hypertension, patient was taking Lasix and hydrochlorothiazide at the same time in the past. Patient does have trace bilateral pitting edema, mucous membranes moist, was given 500 cc NS in ED. Plan: -IV LR 1 L 75 cc/h -Telemetry monitoring -Ordered echocardiogram -Ordered orthostatic vitals -Hold metoprolol and amlodipine -Hold diuretics -Cardiology consulted, appreciate recommendations #LUKE on CKD BUN 35, creatinine 1.7, GFR 31 on presentation, patient follows Dr. Oquendo outpatient. Plan: - IV LR 75 cc/h - Avoid nephrotoxic agents - Follow renal panel in a.m. - Hold lisinopril and diuretics #Hypertension #Hyperlipidemia Patient on lisinopril, metoprolol succinate, hydrochlorothiazide, furosemide, amlodipine at home - Hydralazine as needed - P.o. hydralazine 10 3 times daily, uptitrate as needed - Resume ezetimibe and atorvastatin, patient on simvastatin at home #Diabetes mellitus, insulin-dependent Patient on Mounjaro and glargine at home - Sliding scale insulin - Follow A1c in a.m. - Hypoglycemia protocol in place #GERD #Chronic pain - Resume home dose gabapentin - Resume pantoprazole DVT prophylaxis: Heparin GI prophylaxis: Protonix p.o. Diet: Cardiac diet Lines: Peripheral IV Code status: Full code Case discussed with Attending Dr. Villaolbos and Dr. Pro PGY2. Ashvin Del Cid PGY1 Disclaimer: This note was dictated by speech recognition. Minor errors in fitter armament may be present due to voice recognition software. Attending Provider Attestation/Addendum I attest that I was physically present for the evaluation, physical examination, lab and imaging review of the patient with the residents. I discussed the case with the residents and agree with the findings and plans of care as documented above. Patient is a 79 years old female with past medical history of CKD, hypertension, hyperlipidemia, diabetes, GERD and chronic pain who presented with complaint of dizziness. Patient stated that she feels dizzy at times, occasionally exacerbated on sitting and standing up and symptoms with movement of head. Patient has been on Lasix, hydrochlorothiazide and beta-blockers. In the ED, she was found to be mildly bradycardic with heart rate in high 50s. Rest of the vitals were within normal limits. Noted to have BUN/creatinine of 35/1.7, glucose 225. Urinalysis shows 42 WBCs, positive leukocyte esterase. We will admit the patient for management of dizziness in setting of sinus bradycardia, LUKE. Patient received 500 cc bolus in the ED, we will give her 500 cc more gentle IV hydration suspecting mild dehydration in setting of two diuretics, LUKE. We will also obtain orthostatic vitals, echocardiogram and obtain cardiology consult. We will hold metoprolol and amlodipine for now. Plan to reevaluate kidney function after the fluid in the a.m. Holding nephrotoxic medications. We will start on hydralazine for blood pressure control, insulin regimen for diabetes. Lolis Villalobos MD
[2024-09-09] MEDS: RINGERS LACTATED 1000 ML 1,000 ML 75 ML IV (15:14)
[2024-09-09] MEDS: RINGERS LACTATED 1000 ML 500 ML 75 ML IV (18:08)
[2024-09-09] MEDS: ACETAMINOPHEN 325 MG TABLET 650 MG PO (19:29)
[2024-09-09] MEDS: ONDANSETRON INJ 2 MG/ML INJ 2 ML 4 MG IV (19:29)
[2024-09-09] MEDS: GABAPENTIN 300 MG CAPSULE 600 MG PO (21:05)
[2024-09-09] MEDS: HEPARIN SOD INJ 5000 UNIT/ML VIAL SC (21:06)
[2024-09-09] MEDS: hydrALAZINE HCL 25 MG TABLET PO (21:08)
[2024-09-10] VITALS (10 sets, daily range): BP systolic 135–164; BP diastolic 55–75; PULSE 54–72; RESP 15–19; TEMP 36.1–36.2; O2SAT 97–98; BMI 27.8
--- NOTE | 2024-09-10 00:02 | ESCONSULT_ITS ---
RE: MONA STEVENS : 1945 DATE OF CONSULTATION: 09/09/2024 CONSULTING PHYSICIAN: Hospitalist. REASON FOR CONSULTATION: Evaluation of bradycardia, possible symptomatic dizziness. CHIEF COMPLAINT: Dizziness. HISTORY OF PRESENT ILLNESS: The patient is a 79-year-old female with a past medical history of CKD stage III followed by tile helper, Dr. Oquendo normally, hypertension, hypercholesterolemia, diabetes and gastric problems, chronic arthritis, fairly active according to the daughter, came to the hospital with severe dizziness. She appears to have severe dizziness sitting to standing up, also when she turns her head. Highly suspicious benign positional vertigo, but no syncopal episodes. The patient apparently was on diuretics, Lasix and hydrocodone, stopped because of these symptoms. She still has these symptoms, but no syncope. Most of the symptoms appeared to be positional vertigo type symptoms. ALLERGIES: NONE. MEDICATIONS LIST: The patient is currently on: 1. Lisinopril 20 mg daily for hypertension. 2. Simvastatin 20 mg daily. 3. Amlodipine 10 mg daily. 4. Furosemide 40 daily, but stopped recently. 5. Gabapentin 300 mg t.i.d. 6. Metoprolol succinate only 25 mg daily. 7. Insulin glargine for diabetes 10 units. 8. Mounjaro was started recently as well for weight loss. 9. Pantoprazole. PAST MEDICAL HISTORY: Hypertension, diabetes, hypercholesterolemia and negative cardiac workup. SOCIAL HISTORY: Unremarkable. REVIEW OF SYSTEMS: CARDIOVASCULAR: As described earlier. No chest pain. GASTROINTESTINAL: No history of nausea or vomiting. GENITOURINARY: No history of frequency or dysuria. CENTRAL NERVOUS SYSTEM: No neurologic symptoms. PHYSICAL EXAMINATION: GENERAL: A well-nourished, pleasant elderly female, alert, awake, in no acute distress, thin built, frail. VITAL SIGNS: Blood pressure is 140/80. Pulse rate is 52, regular. Respirations 16. Temperature normal. HEENT: Head is atraumatic, normocephalic. Eyes normal. ENT normal. NECK: Supple. No JVD. Carotid pulse felt, but no bruit. CHEST: Symmetrical. LUNGS: Decreased breath sounds in the bases. No rales or rhonchi. HEART: S1, S2 regular. No gallops or murmurs. ABDOMEN: Thin and soft. EXTREMITIES: No edema. GENITOURINARY AND RECTAL: Not performed. CENTRAL NERVOUS SYSTEM: Normal. Electrocardiogram showed evidence of normal sinus rhythm with sinus bradycardia, heart rate of 50 beats per minute. Cardiac monitoring showed sinus bradycardia. IMPRESSION/ASSESSMENT: 1. Recurrent episode of dizziness, benign positional vertigo. 2. Sinus bradycardia secondary to beta zeb. The patient does not have symptomatic bradycardia. 3. Hypertension, controlled. 4. Hypercholesterolemia. 5. Diabetes mellitus. 6. Peripheral neuropathy. RECOMMENDATIONS: Continue present medical management. Hold off on metoprolol, but continue the rest of the medications for blood pressure management. I do not see a need for pacemaker implantation. She has severe bradycardia mainly due to beta blockers, but is not slow enough to be concerned. Go ahead and stop the metoprolol, but continue the rest of the medications and blood pressure management. The patient's clinical history is quite suspicious of benign positional vertigo. Recommended exercise to repeat the maneuvers that cause dizziness, also move slowly. She has worse corner dizziness, but now a trial of meclizine could be useful. We will go ahead and get a cardiac echo Doppler study and noninvasive cardiac workup. However, her clinical symptoms are highly suspicious for benign positional vertigo, not a cardiogenic syncope or near syncope, hence not concerned about bradycardia. Unless the patient has significant bradycardia pauses overnight, with symptoms, no need for pacemaker implantation. DT: 23:15:37 TT: 00:00:00 Ref: [id number] - TID: [id number]
[2024-09-10] MEDS: GABAPENTIN 300 MG CAPSULE 600 MG PO ×3 (05:30→21:55)
[2024-09-10] MEDS: hydrALAZINE HCL 25 MG TABLET PO ×3 (05:30→21:55)
[2024-09-10] MEDS: HEPARIN SOD INJ 5000 UNIT/ML VIAL SC ×3 (05:30→21:56)
[2024-09-10 05:45] LABS: Basophils % (Auto) 0 % (0-2.5); Eosinophils # (Auto) 0.2 Thou/mm3 (0.0-0.5); Eosinophils % (Auto) 4 % (0-10); Hematocrit 36.4 % (36.0-46.0); Hemoglobin 12.7 g/dL (12.0-16.0); Immature Granulocytes % (Auto) 1 % (0-0); Immature Granulocytes Auto 0.03 Thou/mm3 (0.00-0.00); Lymphocytes # (Auto) 2.2 Thou/mm3 (1.0-4.8); Lymphocytes % (Auto) 36 % (10-50); Mean Corpuscular HGB Conc 34.9 g/dl (31.0-37.0); Mean Corpuscular Hemoglobin 28.9 pg (25.0-35.0); Mean Corpuscular Volume 83 fL (80-100); Monocytes # (Auto) 0.3 Thou/mm3 (0.0-0.8); Monocytes % (Auto) 6 % (0-12); Neutrophils # (Auto) 3.2 Thou/mm3 (1.8-7.7); Neutrophils % (Auto) 54 % (37-80); Nucleated Red Blood Cell % 0 /100 WBC (0); Platelet Count 234 Thou/mm3 (140-440); RDW Standard Deviation 38.8 fL (36.4-46.3); Red Blood Count 4.39 Miln/mm3 (4.00-5.20); White Blood Count 5.9 Thou/mm3 (3.6-11.0)
[2024-09-10 06:02] LABS: Partial Thromboplastin Time 27.4 Seconds (22.0-36.0); Prothrombin Time 10.9 Seconds (9.0-12.2)
[2024-09-10 06:16] LABS: Glucose Estimated Average 180 mg/dL (80-131); Hemoglobin A1C 7.9 % Hgb (4.8-6.0)
[2024-09-10 06:51] LABS: Alanine Aminotransferase 9 U/L (10-49); Albumin, Serum 3.7 gm/dL (3.4-4.8); Albumin/Globulin Ratio 1.9 (1.2-2.2); Alkaline Phosphatase 70 U/L (46-116); Anion Gap 8 (7-16); Aspartate Amino Transferase 15 U/L (0-34); BUN/Creatinine Ratio 18 Ratio (12-20); Bilirubin,Total 0.4 mg/dL (0.3-1.2); Blood Urea Nitrogen 25 mg/dL (9-23); Calcium (Corrected) 9.2 mg/dL (8.5-10.1); Carbon Dioxide 25.1 mMol/L (20.0-31.0); Chloride 109 mMol/L (98-107); Cholesterol 143 mg/dL (132-200); Creatinine (Component) 1.4 mg/dL (0.6-1.3); Estimated Creatinine Clearance 27.1 mL/min (>60); Free T4 (Free Thyroxine) 1.19 ng/dL (0.89-1.76); Globulin 1.9 gm/dL (2.3-3.5); Glucose 141 mg/dL (74-106); HDL Cholesterol 36 mg/dL (40-60); LDL Cholesterol,Calculated 51 mg/dL (0-130); Magnesium 1.7 mg/dL (1.6-2.6); Osmolality,Calculated 289 (275-295); Phosphorous 3.6 mg/dL (2.4-5.1); Potassium 4.5 mMol/L (3.4-5.1); Sodium 142 mMol/L (136-145); Thyroid Stimulating Hormone 3.39 uIU/mL (0.55-4.78); Total Protein 5.6 gm/dL (5.7-8.2); Triglycerides 278 mg/dL (30-150); eGFR 39 See Note
[2024-09-10] MEDS: INSULIN LISPRO (AdmeLOG) 1 UNIT/0.01 ML UNIT SC ×3 (07:36→16:14)
[2024-09-10] MEDS: ATORVASTATIN CALCIUM 20 MG TABLET 40 MG PO (08:29)
[2024-09-10] MEDS: EZETIMIBE 10 MG TABLET PO (08:29)
[2024-09-10] MEDS: PANTOPRAZOLE 40 MG TABLET PO (08:29)
--- NOTE | 2024-09-10 09:00 | PD.RESDS ---
Planned Discharge Date 09/11/24 DS: Providers Provider Date of admission: 09/09/24 14:48 Primary care physician: Rubia Matthews PA-C Admitting Provider: Lolis Villalobos MD Attending Provider on Admission: Jose Elias Gonsales DO Consults: 09/09/24 14:57 Consult to Cardiology Stat Comment: Bradycardia Consulting Provider: Sherry Thorne 09/10/24 10:26 Referral Physical Therapy Routine Comment: Physician Instructions: Attending Provider on DC: Aditya Pro MD Discharging Provider: Aditya Pro MD DS: Diagnosis Problem List Completed Was Problem List Reviewed/Reconciled?: Yes Hospital Course Hospital Course Hospital course: Ms. Gamez a 79-year-old female patietnt with past medical history of chronic kidney disease (follows Dr. Oquendo), hypertension, hyperlipidemia, diabetes mellitus, GERD and chronic pain who presented to [facility] emergency department 09/09/2024 with chief complaint of dizziness. Patient denied any similar episodes in the past, patient was on diuretics Lasix and hydrochlorothiazide which she stopped taking recently about 5 to 7 days ago. ED vitals were significant for bradycardia. Patient's had positive orthstatic vitals. While in hospital, she was seen by classified advertising clerk Dr. Thorne. Echocardiogram was ordered. Metoprolol home med was withheld. Over time patient became stable, she underwent physical therapy. Patient was deemed to be discharged home with outpatient PT. Discharge summary was reviewed with my attending Dr. Gonsales. Aditya Pro, PGY-2 #Syncope #Sinus bradycardia #Hypertension #Hyperlipidemia #Diabetes mellitus, insulin-dependent #GERD #Chronic pain Status at Discharge Overall status at discharge: patient is progressing back to baseline Time Spent with Patient Time attestation: Total time spent providing and/or coordinating discharge services: Time spent: Greater than 30 minutes Exam Vital Signs Temp Pulse Resp BP Pulse Ox O2 Del Method 97.0 F 54 L 16 143/66 H 97 Room Air 09/10/24 20:00 09/10/24 21:55 09/10/24 20:00 09/10/24 21:55 09/10/24 20:00 09/10/24 20:00 Narrative Exam General: Awake and in no acute distress. Conversational and non-toxic appearing. HEENT: Normocephalic, atraumatic, mucous membranes moist. Heart: Regular rate and rhythm, normal S1 and S2, no murmurs. Lungs: Clear to auscultation with no wheezing or crackles. Abdomen: Soft, nondistended, nontender, positive bowel sounds. ?No guarding or rebound tenderness. Neurologic: Alert and oriented x3, no gross neurological deficit, and patient able to move all 4 extremities. Extremities: No edema. Skin: No rash or ecchymoses. Discharge Plan Plan Patient Disposition: HOME (Self Care) Patient condition on transfer: Stable Prescriptions/Referrals Prescriptions/Med Rec: Continued lisinopril 20 mg Tablet 40 mg PO QDAY simvastatin 20 mg Tablet 40 mg PO DAILY amlodipine 10 mg tablet 10 mg PO DAILY gabapentin 300 mg capsule 300 mg PO TID ezetimibe 10 mg tablet 10 mg PO QDAY Mounjaro 2.5 mg/0.5 mL pen injector 2.5 mg SUBCUT QWEEK Rx Instructions: ON SUNDAYS dicyclomine 10 mg capsule 10 mg PO BID tizanidine 4 mg tablet 4 mg PO HS PRN (Reason: muscle spasticity) pantoprazole 40 mg tablet,delayed release (DR/EC) 40 mg PO QDAY Patient Comments: TAKE 1 TABLET BY MOUTH EVERY DAY Held furosemide [Lasix] 40 mg tablet 40 mg PO QDAY PRN (Reason: Edema) Hold Instructions: Resume on 09/17/24. Follow up with PCP hydrochlorothiazide 25 mg tablet 25 mg PO QDAY Hold Instructions: Resume on 09/17/24. Follow up with PCP Patient Comments: TAKE 1 TABLET BY MOUTH EVERY MORNING FOR 90 DAYS Discontinued metoprolol succinate 25 mg tablet extended release 24 hr 25 mg PO DAILY insulin glargine [Lantus Solostar U-100 Insulin] 100 unit/mL (3 mL) insulin pen 10 unit subcut [id number] Rx Instructions: IF BG >200 Referrals: Alivia Oquendo MD [Physician] - Rubia Matthews PA-C [Primary Care Provider] - Sherry Thorne MD [Physician] - Patient/Caregiver Discharge Instructions Discharge Activity: activity as tolerated Other Discharge Activity Instructions:: Continue amlodipine and lisinopril for blood pressure management. Stop metoprolol succinate 25 mg tablet, as it can be contributing to bradycardia. Follow-up with classified advertising clerk outpatient for further workup. Hold Lasix and hydrochlorothiazide considering you have acute kidney injury. Follow-up with PCP/senior financial reporting analyst before resuming. Maintain adequate hydration, keep daily fluid intake less than 2 L. Continue all other home medications as prescribed. Follow-up with primary care physician and senior financial reporting analyst in 1 week. You can also follow-up in [facility] in 1 to 2 weeks if you are unable to get an appointment with your PCP. Call [phone] to make an appointment at the [facility]. Address: [facility], [address], [address], [place], [address] Return to ED if symptoms return or worsen. Other Discharge Diet Instructions: Cardiac, renal diet. Education Materials: A1C, Understanding Bradycardia, ED Dizziness, Uncertain Cause Print Language: Tamazight Stand Alone Forms: Jennifer Award Info., Patient Portal Info Letter, Work/Release Restrictions Discharge Order Discharge Orders: Discharge (Routine); Ordered 09/11/24 Ordered By: Ashvin Del Cid Quality Discharge Quality Measures VTE prophylaxis MD Attestestation MD Attestation I have discussed and was present for the essential components of the discharge history, physical examination, diagnosis, and discharge treatment plan with the resident. I agree with the patient's discharge care as documented by the resident and amended herein by me. Adolfo Gonsales DO. The patient understood all discharge instructions, all questions were answered satisfactorily. The patient was instructed to return to the Emergency Department is symptoms worsened or persisted. Patient's symptoms markedly improved, patient will continue with outpatient physical therapy. Patient's creatinine did downtrend at time of discharge after fluid bolus. Patient was stable, afebrile, tolerating p.o. intake and afebrile at time of discharge home. Although this document has been carefully reviewed, there may still be some phonetic and other typographical errors. These errors are purely grammatical due to imperfections in the software program and should not be construed in any way to compromise the substance of the patient's medical care during this visit.
[2024-09-10] MEDS: amLODIPine BESYLATE 5 MG TABLET 10 MG PO (09:29)
--- NOTE | 2024-09-10 14:30 | ESPR_ITS ---
<Statement entered by Sherry Thorne MD - 09/16/24 08:28> I personally examined evaluated the patient with resident physician Dr. Lillian Leyva, PGY 2 patient appears to be doing better bradycardia improved initial bradycardia secondary to beta-zeb hence recommend stopping the beta-zeb completely continue rest of medication will monitor the patient as an outpatient if she has significant symptomatic bradycardia may consider pacemaker implantation as an outpatient if the patient remains stable can be discharged home Documentation for date of: 09/10/24 Subjective Subjective Interval history: No acute events overnight.?Patient seen and examined at bedside this AM.?Patient had no complaints, feeling well. She denies any further episodes of dizziness or nausea and has in fact gone up to the restroom by herself without any dizziness. Labs and vitals were reviewed.?BP ranged from 139/60 to 180/72. 24-hour telemetry reviewed. HR ranged from 50-60s without any sinus pauses, always sinus rhythm or sinus bradycardia. Patient is on room air saturating well. Labs are stable other than LUKE which has improved from creatinine 1.7 to 1.4. No further complaints at this time. Review of systems otherwise negative except what is mentioned above. Exam Vital Signs Temp Pulse Resp BP Pulse Ox O2 Del Method 97.1 F 54 L 18 139/60 H 98 Room Air 09/10/24 08:00 09/10/24 13:10 09/10/24 08:00 09/10/24 13:10 09/10/24 08:00 09/10/24 08:00 Narrative Exam Physical Exam General: Awake and in no acute distress. Conversational and non-toxic appearing. HEENT: Normocephalic, atraumatic, mucous membranes moist. Heart: Regular rate and rhythm, normal S1 and S2, no murmurs. Lungs: Clear to auscultation with no wheezing or crackles. Abdomen: Soft, nondistended, nontender, positive bowel sounds. ?No guarding or rebound tenderness. Neurologic: Alert and oriented x3, no gross neurological deficit, and patient able to move all 4 extremities. Extremities: No edema. Skin: No rash or ecchymoses. Objective Labs 09/11/24 04:25 09/11/24 04:25 Labs: Laboratory Results - last 24 hr 09/10/24 04:27 WBC 5.9 RBC 4.39 Hgb 12.7 Hct 36.4 MCV 83 MCH 28.9 MCHC 34.9 RDW Std Deviation 38.8 Plt Count 234 Neut % (Auto) 54 Lymph % (Auto) 36 [place] % (Auto) 6 Eos % (Auto) 4 Baso % (Auto) 0 Neut # (Auto) 3.2 Lymph # (Auto) 2.2 [place] # (Auto) 0.3 Eos # (Auto) 0.2 Baso # (Auto) 0.0 Immature Gran # (Auto) 0.03 H Absolute Nucleated RBC 0.00 Immature Gran % 1 H Nucleated RBC % 0 PT 10.9 INR 1.0 APTT 27.4 Sodium 142 Potassium 4.5 Chloride 109 H Carbon Dioxide 25.1 Anion Gap 8 BUN 25 H Creatinine 1.4 H Estim Creat Clear Calc 27.1 L eGFR 39 L BUN/Creatinine Ratio 18 [address]ucose [address] Glu mg/dL 180 H Hemoglobin A1c 7.9 H Calculated Osmolality 289 Calcium 9.0 Corrected Calcium 9.2 Phosphorus 3.6 Magnesium 1.7 Total Bilirubin 0.4 AST 15 ALT 9 L Alkaline Phosphatase 70 Total Protein 5.6 L Albumin 3.7 Globulin 1.9 L Albumin/Globulin Ratio 1.9 Triglycerides 278 H Cholesterol 143 LDL Cholesterol, Calc 51 HDL Cholesterol 36 L Cholesterol/HDL Ratio 4.0 TSH 3.39 Free T4 1.19 Quality Measures Quality Measures none Advance care planning discussed with:: patient Assessment & Plan Assessment Current Active Medications: Generic Name Dose Route Start Last Admin Trade Name Freq PRN Reason Stop Dose Admin Acetaminophen 650 mg 09/09/24 14:51 09/09/24 19:29 Acetaminophen 325 Mg Tablet PO 10/09/24 14:50 650 mg Q6H PRN Administration Pain (1-3) & Fever >100.4 Amlodipine Besylate 10 mg 09/10/24 09:00 09/10/24 09:29 Amlodipine Besylate 5 Mg Tablet PO 10/10/24 08:59 10 mg DAILY CILFF Administration Atorvastatin Calcium 40 mg 09/10/24 09:00 09/10/24 08:29 Atorvastatin Calcium 20 Mg Tablet PO 10/10/24 08:59 40 mg DAILY CLIFF Administration Dextrose 25 ml 09/09/24 15:03 Dextrose 50%-Water Inj 50 Ml Syringe IV 10/09/24 15:02 Q15MIN PRN BG 50-70 responsive npo pt Dextrose 50 ml 09/09/24 15:03 Dextrose 50%-Water Inj 50 Ml Syringe IV 10/09/24 15:02 Q15MIN PRN BG <50 OR BG <70 & pt unresponsive Ezetimibe 10 mg 09/10/24 09:00 09/10/24 08:29 Ezetimibe 10 Mg Tablet PO 10/10/24 08:59 10 mg QDAY CLIFF Administration Gabapentin 600 mg 09/09/24 22:00 09/10/24 13:10 Gabapentin 300 Mg Capsule PO 10/09/24 21:59 600 mg TID CLIFF Administration Glucagon 1 mg 09/09/24 15:03 Glucagon Inj 1 Mg Vial IM Q15MIN PRN BG <70, and no IV access Heparin Sodium (Porcine) 5,000 unit 09/09/24 22:00 09/10/24 13:11 Heparin Sod Inj 5000 Unit/Ml Vial SC 09/23/24 21:59 5,000 unit Q8HR CLIFF Administration Hydralazine HCl 10 mg 09/09/24 14:58 Hydralazine Inj 20 Mg/Ml Vial IV 10/09/24 14:59 Q6H PRN SBP > 170, DBP > 100 Hydralazine HCl 25 mg 09/09/24 22:00 09/10/24 13:10 Hydralazine Hcl 25 Mg Tablet PO 10/09/24 21:59 25 mg TID CLIFF Administration Insulin Human Lispro 0 unit 09/09/24 17:00 09/10/24 11:39 Insulin Lispro (Admelog) 1 Unit/0.01 Ml Unit SC 10/09/24 16:59 1 unit AC CLIFF Administration Protocol Ondansetron HCl 4 mg 09/09/24 14:51 09/09/24 19:29 Ondansetron Inj 2 Mg/Ml Inj 2 Ml IV 10/09/24 14:50 4 mg Q6H PRN Administration NAUSEA OR VOMITING Protocol Pantoprazole Sodium 40 mg 09/10/24 09:00 09/10/24 08:29 Pantoprazole 40 Mg Tablet PO 10/10/24 08:59 40 mg QDAY CLIFF Administration Sennosides 2 tab 09/09/24 14:51 Senna Tablet PO 10/09/24 14:50 BID PRN CONSTIPATION Protocol Tizanidine HCl 4 mg 09/10/24 08:52 Tizanidine Hcl 2 Mg Tablet PO 10/10/24 08:51 HS PRN muscle spasticity Plan 79-year-old female with a past medical history of CKD stage III 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 Oquendo, hypertension, hypercholesterolemia, type 2 diabetes and gastric problems, chronic arthritis, fairly active according to the daughter, came to the hospital on 09/09/2024 with severe dizziness. Cardiology was consulted in the setting of possible symptomatic bradycardia. #Sinus bradycardia, likely secondary to beta-zeb 24-hour telemetry reviewed. HR remains in sinus rhythm or sinus bradycardia in the 50-60s. No sinus pauses or blocks seen on tele. Patient has additionally remained asymptomatic, mentating well, reporting able to ambulate without dizziness or nausea. Possible medication side effect versus peripheral vertigo. Recommended to stop beta-zeb and follow up with PCP. -Stop home metoprolol -At this time cardiology will sign off, patient is able to be discharged from our standpoint -Follow up with outpatient PT as recommended by the PT evaluation for positional dizziness #History of hypertension -Continue home amlodipine 10 mg qday -Continue home lisinopril 40 mg qday when LUKE resolved Rest of conditions to continue current management per primary team: #Dizziness, resolved #Benign positional peripheral vertigo #LUKE on CKD #History of hyperlipidemia #History of type 2 diabetes Patient was discussed with the Cardiology attending, Dr. Thorne. Thank you for allowing us to participate in the care of this patient. Cardiology will sign off. Cora Leyva, PGY-2
--- NOTE | 2024-09-10 14:51 | ECHO_ITS ---
Transthoracic Echo Report Ht (in): 59 Wt (lb): 137 Exam Location: [facility] Status: Inpatient Medical Staff Manager: ELDER Us^^^^ Indications: Procedure Performed: BP: / HR: MEASUREMENTS (Male / Female) Normal Values 2D ECHO LV Diastolic Diameter PLAX 4.0 cm 4.2 - 5.9 / 3.9 - 5.3 cm IVS Diastolic Thickness 0.8 cm 0.6 - 1.0 / 0.6 - 0.9 cm LVPW Diastolic Thickness 0.9 cm 0.6 - 1.0 / 0.6 - 0.9 cm LV Relative Wall Thickness 0.4 LVOT Diameter 1.6 cm Aortic Root Diameter 2.5 cm LA Systolic Diameter LX 3.2 cm 3.0 - 4.0 / 2.7 - 3.8 cm LA Volume Index 37.1 cm?/m? 16 - 28 cm?/m? DOPPLER AV Peak Velocity 144.3 cm/s AV Peak Gradient 8.3 mmHg AV Mean Gradient 5.5 mmHg AV Velocity Time Integral 40.3 cm LVOT Peak Velocity 120.0 cm/s LVOT Peak Gradient 5.8 mmHg LVOT Velocity Time Integral 36.0 cm AV Area Cont Eq vti 1.8 cm? AV Area Cont Eq pk 1.7 cm? MV Area PHT 2.3 cm? MR Peak Velocity 276.0 cm/s MR Peak Gradient 30.5 mmHg Mitral E Point Velocity 77.1 cm/s Mitral A Point Velocity 135.0 cm/s Mitral E to A Ratio 0.6 LV E' Lateral Velocity 7.2 cm/s Mitral E to LV E' Lateral Ratio 10.7 LV E' Septal Velocity 6.3 cm/s Mitral E to LV E' Septal Ratio 12.3 TV Peak Velocity 184.0 cm/s TR Peak Velocity 239.0 cm/s TR Peak Gradient 22.8 mmHg PV Peak Velocity 133.0 cm/s PV Peak Gradient 7.1 mmHg RVOT Peak Velocity 56.9 cm/s FINDINGS Left Ventricle Normal left ventricular size, wall thickness, systolic function with no obvious regional wall motion abnormalities. There is grade I diastolic dysfunction of the left ventricle (impaired relaxation pattern). The left ventricular ejection fraction is normal, estimated at 55-60%. Right Ventricle The right ventricle is normal in size and systolic function. The estimated right ventricular systolic pressure, 25 mmHg. Left Atrium The left atrium is normal by two-dimensional, color flow and Doppler imaging with no structural abnormalities, no thrombus formation present. Right Atrium The right atrium is normal by two-dimensional imaging, color flow and Doppler imaging with no structural abnormalities, no thrombus formation present. Atrial Septum The interatrial septum appears normal with no evidence of a shunt. Aorta The aorta is normal by two-dimensional, color flow and Doppler interrogation. Mitral Valve Trace to mild mitral regurgitation. Mild mitral annular calcification. Aortic Valve Aortic valve sclerosis. Tricuspid Valve There is mild tricuspid valve regurgitation. Pulmonic Valve The pulmonic valve is not well visualized. There is no significant pulmonic valve regurgitation. Vessels The pulmonary artery appears normal. The inferior vena cava pulmonary and hepatic veins appear normal. Pericardium The pericardium is normal by two-dimensional imaging. There is no significant pericardial effusion. CONCLUSIONS indication: bradycardia Normal-sized cardiac chambers. Normal size left ventricle excellent LV systolic function EF 60%. Mitral valve thickening mild calcification of annulus mild mitral regurgitation. Mild tricuspid regurgitation. Aortic valve sclerosis no stenosis. Debi Ivey (Electronically Signed) Final Date: 11 September 2024 11:48
--- NOTE | 2024-09-10 16:18 | PC.SS ---
SS has received phone call from AYALA Dunn who is recommending pt to follow up as out patient PT. SS has sent referral to Out Patient PT. SS has provided pt with The Community Resource List wich contains Out Patient PT's phone# and address.
--- NOTE | 2024-09-10 17:00 | PC.PT ---
PT eval only. Patient is xI with bed mobility, transfers, and ambulation. Patient is safe to ambulate to the bathroom and in the halls with no DME and no staff. RN made aware.
--- NOTE | 2024-09-10 18:14 | PD.RESPRO ---
Documentation for date of: 09/10/24 Exam Vital Signs Temp Pulse Resp BP Pulse Ox O2 Del Method 97.0 F 63 16 161/72 H 98 Room Air 09/10/24 16:00 09/10/24 16:00 09/10/24 16:00 09/10/24 16:00 09/10/24 16:00 09/10/24 16:00 Objective Labs 09/10/24 04:27 09/10/24 04:27 Labs: Laboratory Results - last 24 hr 09/10/24 04:27 WBC 5.9 RBC 4.39 Hgb 12.7 Hct 36.4 MCV 83 MCH 28.9 MCHC 34.9 RDW Std Deviation 38.8 Plt Count 234 Neut % (Auto) 54 Lymph % (Auto) 36 [place] % (Auto) 6 Eos % (Auto) 4 Baso % (Auto) 0 Neut # (Auto) 3.2 Lymph # (Auto) 2.2 [place] # (Auto) 0.3 Eos # (Auto) 0.2 Baso # (Auto) 0.0 Immature Gran # (Auto) 0.03 H Absolute Nucleated RBC 0.00 Immature Gran % 1 H Nucleated RBC % 0 PT 10.9 INR 1.0 APTT 27.4 Sodium 142 Potassium 4.5 Chloride 109 H Carbon Dioxide 25.1 Anion Gap 8 BUN 25 H Creatinine 1.4 H Estim Creat Clear Calc 27.1 L eGFR 39 L BUN/Creatinine Ratio 18 Glucose [address] Glu mg/dL 180 H Hemoglobin A1c 7.9 H Calculated Osmolality 289 Calcium 9.0 Corrected Calcium 9.2 Phosphorus 3.6 Magnesium 1.7 Total Bilirubin 0.4 AST 15 ALT 9 L Alkaline Phosphatase 70 Total Protein 5.6 L Albumin 3.7 Globulin 1.9 L Albumin/Globulin Ratio 1.9 Triglycerides 278 H Cholesterol 143 LDL Cholesterol, Calc 51 HDL Cholesterol 36 L Cholesterol/HDL Ratio 4.0 TSH 3.39 Free T4 1.19 Quality Measures Quality Measures none Assessment & Plan Assessment Current Active Medications: Generic Name Dose Route Start Last Admin Trade Name Freq PRN Reason Stop Dose Admin Acetaminophen 650 mg 09/09/24 14:51 09/09/24 19:29 Acetaminophen 325 Mg Tablet PO 10/09/24 14:50 650 mg Q6H PRN Administration Pain (1-3) & Fever >100.4 Amlodipine Besylate 10 mg 09/10/24 09:00 09/10/24 09:29 Amlodipine Besylate 5 Mg Tablet PO 10/10/24 08:59 10 mg DAILY CLIFF Administration Atorvastatin Calcium 40 mg 09/10/24 09:00 09/10/24 08:29 Atorvastatin Calcium 20 Mg Tablet PO 10/10/24 08:59 40 mg DAILY CLIFF Administration Dextrose 25 ml 09/09/24 15:03 Dextrose 50%-Water Inj 50 Ml Syringe IV 10/09/24 15:02 Q15MIN PRN BG 50-70 responsive npo pt Dextrose 50 ml 09/09/24 15:03 Dextrose 50%-Water Inj 50 Ml Syringe IV 10/09/24 15:02 Q15MIN PRN BG <50 OR BG <70 & pt unresponsive Ezetimibe 10 mg 09/10/24 09:00 09/10/24 08:29 Ezetimibe 10 Mg Tablet PO 10/10/24 08:59 10 mg QDAY CLIFF Administration Gabapentin 600 mg 09/09/24 22:00 09/10/24 13:10 Gabapentin 300 Mg Capsule PO 10/09/24 21:59 600 mg TID CLIFF Administration Glucagon 1 mg 09/09/24 15:03 Glucagon Inj 1 Mg Vial IM Q15MIN PRN BG <70, and no IV access Heparin Sodium (Porcine) 5,000 unit 09/09/24 22:00 09/10/24 13:11 Heparin Sod Inj 5000 Unit/Ml Vial SC 09/23/24 21:59 5,000 unit Q8HR CLIFF Administration Hydralazine HCl 10 mg 09/09/24 14:58 Hydralazine Inj 20 Mg/Ml Vial IV 10/09/24 14:59 Q6H PRN SBP > 170, DBP > 100 Hydralazine HCl 25 mg 09/09/24 22:00 09/10/24 13:10 Hydralazine Hcl 25 Mg Tablet PO 10/09/24 21:59 25 mg TID CLIFF Administration Insulin Human Lispro 0 unit 09/09/24 17:00 09/10/24 16:14 Insulin Lispro (Admelog) 1 Unit/0.01 Ml Unit SC 10/09/24 16:59 1 unit AC CLIFF Administration Protocol Ondansetron HCl 4 mg 09/09/24 14:51 09/09/24 19:29 Ondansetron Inj 2 Mg/Ml Inj 2 Ml IV 10/09/24 14:50 4 mg Q6H PRN Administration NAUSEA OR VOMITING Protocol Pantoprazole Sodium 40 mg 09/10/24 09:00 09/10/24 08:29 Pantoprazole 40 Mg Tablet PO 10/10/24 08:59 40 mg QDAY CLIFF Administration Sennosides 2 tab 09/09/24 14:51 Senna Tablet PO 10/09/24 14:50 BID PRN CONSTIPATION Protocol Tizanidine HCl 4 mg 09/10/24 08:52 Tizanidine Hcl 2 Mg Tablet PO 10/10/24 08:51 HS PRN muscle spasticity
[2024-09-11] VITALS (9 sets, daily range): BP systolic 114–156; BP diastolic 51–74; PULSE 53–67; RESP 14–98; TEMP 36.1–36.4; O2SAT 96–99
[2024-09-11] MEDS: GABAPENTIN 300 MG CAPSULE 600 MG PO ×2 (05:31→15:05)
[2024-09-11] MEDS: hydrALAZINE HCL 25 MG TABLET PO ×2 (05:32→15:05)
[2024-09-11] MEDS: HEPARIN SOD INJ 5000 UNIT/ML VIAL SC (05:33)
[2024-09-11 05:42] LABS: Basophils % (Auto) 0 % (0-2.5); Eosinophils # (Auto) 0.2 Thou/mm3 (0.0-0.5); Eosinophils % (Auto) 3 % (0-10); Hemoglobin 12.4 g/dL (12.0-16.0); Immature Granulocytes % (Auto) 1 % (0-0); Immature Granulocytes Auto 0.03 Thou/mm3 (0.00-0.00); Lymphocytes # (Auto) 2.4 Thou/mm3 (1.0-4.8); Lymphocytes % (Auto) 39 % (10-50); Mean Corpuscular HGB Conc 34.4 g/dl (31.0-37.0); Mean Corpuscular Hemoglobin 29.7 pg (25.0-35.0); Mean Corpuscular Volume 86 fL (80-100); Monocytes # (Auto) 0.4 Thou/mm3 (0.0-0.8); Monocytes % (Auto) 6 % (0-12); Neutrophils # (Auto) 3.1 Thou/mm3 (1.8-7.7); Neutrophils % (Auto) 51 % (37-80); Nucleated Red Blood Cell % 0 /100 WBC (0); Platelet Count 232 Thou/mm3 (140-440); RDW Standard Deviation 40.4 fL (36.4-46.3); Red Blood Count 4.17 Miln/mm3 (4.00-5.20); White Blood Count 6.1 Thou/mm3 (3.6-11.0)
[2024-09-11 06:18] LABS: Alanine Aminotransferase 8 U/L (10-49); Albumin, Serum 3.5 gm/dL (3.4-4.8); Albumin/Globulin Ratio 1.8 (1.2-2.2); Alkaline Phosphatase 64 U/L (46-116); Anion Gap 6 (7-16); Aspartate Amino Transferase 12 U/L (0-34); BUN/Creatinine Ratio 15 Ratio (12-20); Bilirubin,Total 0.3 mg/dL (0.3-1.2); Blood Urea Nitrogen 27 mg/dL (9-23); Calcium 8.8 mg/dL (8.3-10.6); Calcium (Corrected) 9.2 mg/dL (8.5-10.1); Carbon Dioxide 24.6 mMol/L (20.0-31.0); Chloride 109 mMol/L (98-107); Creatinine (Component) 1.8 mg/dL (0.6-1.3); Estimated Creatinine Clearance 21.2 mL/min (>60); Globulin 1.9 gm/dL (2.3-3.5); Glucose 158 mg/dL (74-106); Magnesium 1.8 mg/dL (1.6-2.6); Osmolality,Calculated 287 (275-295); Phosphorous 4.3 mg/dL (2.4-5.1); Potassium 4.7 mMol/L (3.4-5.1); Sodium 140 mMol/L (136-145); Total Protein 5.4 gm/dL (5.7-8.2); eGFR 29 See Note
[2024-09-11] MEDS: INSULIN LISPRO (AdmeLOG) 1 UNIT/0.01 ML UNIT SC ×2 (07:51→12:22)
[2024-09-11] MEDS: PANTOPRAZOLE 40 MG TABLET PO (08:03)
[2024-09-11] MEDS: ATORVASTATIN CALCIUM 20 MG TABLET 40 MG PO (08:04)
[2024-09-11] MEDS: EZETIMIBE 10 MG TABLET PO (08:04)
[2024-09-11] MEDS: amLODIPine BESYLATE 5 MG TABLET 10 MG PO (08:05)
[2024-09-11] MEDS: RINGERS LACTATED 1000 ML 1,000 ML 999 ML IV (09:35)
[2024-09-11 12:46] LABS: Albumin, Serum 3.9 gm/dL (3.4-4.8); Anion Gap 7 (7-16); BUN/Creatinine Ratio 18 Ratio (12-20); Blood Urea Nitrogen 29 mg/dL (9-23); Calcium 8.9 mg/dL (8.3-10.6); Carbon Dioxide 25.5 mMol/L (20.0-31.0); Chloride 108 mMol/L (98-107); Creatinine (Component) 1.6 mg/dL (0.6-1.3); Estimated Creatinine Clearance 23.9 mL/min (>60); Glucose 163 mg/dL (74-106); Osmolality,Calculated 289 (275-295); Phosphorous 3.2 mg/dL (2.4-5.1); Potassium 4.2 mMol/L (3.4-5.1); Sodium 140 mMol/L (136-145); eGFR 33 See Note
--- NOTE | 2024-09-11 13:54 | ESDS_ITS ---
<Statement entered by Aditya Pro MD - 09/11/24 21:54> I discussed with and supervised the director internal control physician involved in the care of this patient. Patient assessment and plan was discussed with entire medicine team, including my attending. I agree with the assessment and plan as documented by director internal control doctor. Patient care was discussed with my attending physician Dr. Ilda Pro, PGY-2 Planned Discharge Date 09/11/24 DS: Providers Provider Date of admission: 09/09/24 14:48 Primary care physician: Rubia Matthews PA-C Admitting Provider: Lolis Villalobos MD Attending Provider on Admission: Jose Elias Gonsales DO Consults: 09/09/24 14:57 Consult to Cardiology Stat Comment: Bradycardia Consulting Provider: Sherry Thorne 09/10/24 10:26 Referral Physical Therapy Routine Comment: Physician Instructions: Attending Provider on DC: Jose Elias Gonsales DO Discharging Provider: Jose Elias Gonsales DO Anticipated date of discharge: 09/11/24 DS: Diagnosis Problem List Completed Was Problem List Reviewed/Reconciled?: Yes Hospital Course Hospital Course Hospital course: Patient's discharge was held yesterday, patient was pending physical therapy and echocardiogram. Please see attached discharge summary below for details. Ms. Gamez a 79-year-old female patietnt with past medical history of chronic kidney disease (follows Dr. Oquendo), hypertension, hyperlipidemia, diabetes mellitus, GERD and chronic pain who presented to [facility] emergency department 09/09/2024 with chief complaint of dizziness. Patient denied any similar episodes in the past, patient was on diuretics Lasix and hydrochlorothiazide which she stopped taking recently about 5 to 7 days ago. ED vitals were significant for bradycardia. Patient's had positive orthstatic vitals. While in hospital, she was seen by fire information officer Dr. Thorne. Echocardiogram was obtained. Metoprolol home med was withheld. Over time patient became stable, she underwent physical therapy. Patient was assessed by physical therapy, recommended outpatient referral for physical therapy. Patient instructed to follow-up with nephrology outpatient in 1 week. Discharge summary was reviewed with my attending Dr. Gonsales. Ashvin Del Cid PGY1 Discharge diagnosis #Dizziness #Sinus bradycardia #Hypertension #Hyperlipidemia #Diabetes mellitus, insulin-dependent #GERD #Chronic pain Time Spent with Patient Time attestation: Total time spent providing and/or coordinating discharge services: Time spent: Greater than 30 minutes Home Health Home Health Referral Orders: 09/11/24 08:11 Home Health Referral Routine Reason For Exam: debility Home-Bound The patient must either because of illness or injury, need the aid of supportive devices such as crutches, canes, wheelchairs, and walkers; the use of special transportation; or the assistance of another person in order to leave their place of residence; OR have a condition such that leaving his or her home is medically contraindicated. In addition, the patient also meets the following criteria: patient is normally unable to leave the home and leaving home requires considerable taxing effort. Addendum to Home Health Certification Practitioner's Certification: I certify that the patient has been under my care in the hospital and the care of attending physician (see below). We had a [id number] encounter on (see date below). My clinical findings indicate that the patient is home bound per the above criteria and the Home Health Services noted in these orders are medically necessary. The primary reason for the [id number] encounter is related to the fact that the patient requires home health services. Date Certifying [id number] Physician Encounter: 09/09/24 Physician's Name who will Assume Oversight for Services: Rubia Matthews Physician's Phone No.who will Assume Oversight for Service: PHYSICIAN RELATIONS MANAGER - Community Resources: No PT to Evaluate: Yes PT to evaluate and provide a treatmnet plan to increase patient's mobility and strength. Wound Care: No IV Therapy: No Discontinue PICC Line Once Treatment Complete: No RN Safety Evaluation: Yes RN to evaluate and create a plan of care that will produce positive outcomes. Palliative Treatment: No Palliative treatment and evaluate the need for hospice. Home Health Aide - Personal Care: No Home Health Aide to assist with any ADL's. Exam Vital Signs Temp Pulse Resp BP Pulse Ox O2 Del Method 97.5 F 61 18 150/66 H 99 Room Air 09/11/24 12:00 09/11/24 12:38 09/11/24 12:38 09/11/24 12:00 09/11/24 12:00 09/11/24 12:00 Narrative Exam General: Awake and in no acute distress. Conversational and non-toxic appearing. HEENT: Normocephalic, atraumatic, mucous membranes moist. Heart: Regular rate and rhythm, normal S1 and S2, no murmurs. Lungs: Clear to auscultation with no wheezing or crackles. Abdomen: Soft, nondistended, nontender, positive bowel sounds. ?No guarding or rebound tenderness. Neurologic: Alert and oriented x3, no gross neurological deficit, and patient able to move all 4 extremities. Extremities: No edema. Skin: No rash or ecchymoses. Discharge Plan Plan Patient Disposition: HOME (Self Care) Patient condition on transfer: Stable Prescriptions/Referrals Prescriptions/Med Rec: Continued lisinopril 20 mg Tablet 40 mg PO QDAY simvastatin 20 mg Tablet 40 mg PO DAILY amlodipine 10 mg tablet 10 mg PO DAILY gabapentin 300 mg capsule 300 mg PO TID ezetimibe 10 mg tablet 10 mg PO QDAY Mounjaro 2.5 mg/0.5 mL pen injector 2.5 mg SUBCUT QWEEK Rx Instructions: ON SUNDAYS dicyclomine 10 mg capsule 10 mg PO BID tizanidine 4 mg tablet 4 mg PO HS PRN (Reason: muscle spasticity) pantoprazole 40 mg tablet,delayed release (DR/EC) 40 mg PO QDAY Patient Comments: TAKE 1 TABLET BY MOUTH EVERY DAY Held furosemide [Lasix] 40 mg tablet 40 mg PO QDAY PRN (Reason: Edema) Hold Instructions: Resume on 09/17/24. Follow up with PCP hydrochlorothiazide 25 mg tablet 25 mg PO QDAY Hold Instructions: Resume on 09/17/24. Follow up with PCP Patient Comments: TAKE 1 TABLET BY MOUTH EVERY MORNING FOR 90 DAYS Discontinued metoprolol succinate 25 mg tablet extended release 24 hr 25 mg PO DAILY insulin glargine [Lantus Solostar U-100 Insulin] 100 unit/mL (3 mL) insulin pen 10 unit subcut BIDWMEAL Rx Instructions: IF BG >200 Referrals: Alivia Oquendo MD [Physician] - Rubia Matthews PA-C [Primary Care Provider] - Sherry Thorne MD [Physician] - Patient/Caregiver Discharge Instructions Discharge Activity: activity as tolerated Other Discharge Activity Instructions:: Continue amlodipine and lisinopril for blood pressure management. Stop metoprolol succinate 25 mg tablet, as it can be contributing to bradycardia. Follow-up with fire information officer outpatient for further workup. Hold Lasix and hydrochlorothiazide considering you have acute kidney injury. Follow-up with PCP/generator operator before resuming. Maintain adequate hydration, keep daily fluid intake less than 2 L. Continue all other home medications as prescribed. Follow-up with primary care physician and generator operator in 1 week. You can also follow-up in [facility] in 1 to 2 weeks if you are unable to get an appointment with your PCP. Call [phone] to make an appointment at the [facility]. Address: [facility], [facility] [address], [address], [place], [address] Return to ED if symptoms return or worsen. Other Discharge Diet Instructions: Cardiac, renal diet. Education Materials: A1C, Understanding Bradycardia, ED Dizziness, Uncertain Cause Print Language: Armenian Stand Alone Forms: Jennifer Award Info., Patient Portal Info Letter, Work/Release Restrictions Discharge Order Discharge Orders: Discharge (Routine); Ordered 09/11/24 Ordered By: Ashvin Del Cid Quality Discharge Quality Measures VTE prophylaxis Attestestation Attestation I have discussed and was present for the essential components of the discharge history, physical examination, diagnosis, and discharge treatment plan with the resident. I agree with the patient's discharge care as documented by the resident and amended herein by me. Adolfo Gonsales DO. The patient understood all discharge instructions, all questions were answered satisfactorily. The patient was instructed to return to the Emergency Department is symptoms worsened or persisted. Although this document has been carefully reviewed, there may still be some phonetic and other typographical errors. These errors are purely grammatical due to imperfections in the software program and should not be construed in any way to compromise the substance of the patient's medical care during this visit.
--- NOTE | 2024-09-11 14:37 | PC.SS ---
Rounding note: patient to d/c home today.
== END 2024-09-11 16:15 | disposition home or self-care (01) ==
LOC: SERX 14:40 → SERHOLD 15:08 → S2NX 09-10 06:46 → SERHOLD 09-10 06:49
PROVIDERS: Nurse Practitioner Family; Admitting Provider Student in an Organized Health Care Education/Training Program; Emergency Provider Emergency Medicine; PCP Physician Assistant; Visit Provider Student in an Organized Health Care Education/Training Program
DX: R42 Dizziness and giddiness (principal); R00.1 Bradycardia, unspecified; E11.22 Type 2 diabetes mellitus with diabetic chronic kidney disease; E11.42 Type 2 diabetes mellitus with diabetic polyneuropathy; E78.00 Pure hypercholesterolemia, unspecified; E86.0 Dehydration; G89.29 Other chronic pain; H81.399 Other peripheral vertigo, unspecified ear; I12.9 Hypertensive chronic kidney disease with stage 1 through stage 4 chronic kidney disease, or unspecified chronic kidney disease; K21.9 Gastro-esophageal reflux disease without esophagitis; M19.90 Unspecified osteoarthritis, unspecified site; N17.9 Acute kidney failure, unspecified; Z01.810 Encounter for preprocedural cardiovascular examination; Z79.4 Long term (current) use of insulin; T50.916A Underdosing of multiple unspecified drugs, medicaments and biological substances, initial encounter; Z91.128 Patient's intentional underdosing of medication regimen for other reason
CPT/HCPCS: 36415; 80053; 80061; 80069; 81001; 83036; 83735; 84100; 84439; 84443; 84484; 85025; 85610; 85730; 87086; 93005; 93306; 96360; 96372; 97161; 99285; G0378; J1643; J1815; J2405; J7040; J7120; A9270

== ENCOUNTER → 2024-09-16 | Outpatient (CLI) | payer OTHER, MEDICAID, SELFPAY ==
[2024-09-16 09:25] LABS: Basophils % (Auto) 0 % (0-2.5); Eosinophils # (Auto) 0.2 Thou/mm3 (0.0-0.5); Eosinophils % (Auto) 3 % (0-10); Hematocrit 38.2 % (36.0-46.0); Hemoglobin 13.3 g/dL (12.0-16.0); Immature Granulocytes % (Auto) 0 % (0-0); Immature Granulocytes Auto 0.03 Thou/mm3 (0.00-0.00); Lymphocytes # (Auto) 1.7 Thou/mm3 (1.0-4.8); Lymphocytes % (Auto) 24 % (10-50); Mean Corpuscular HGB Conc 34.8 g/dl (31.0-37.0); Mean Corpuscular Hemoglobin 29.9 pg (25.0-35.0); Mean Corpuscular Volume 86 fL (80-100); Monocytes # (Auto) 0.5 Thou/mm3 (0.0-0.8); Monocytes % (Auto) 6 % (0-12); Neutrophils # (Auto) 4.9 Thou/mm3 (1.8-7.7); Neutrophils % (Auto) 67 % (37-80); Nucleated Red Blood Cell % 0 /100 WBC (0); Platelet Count 258 Thou/mm3 (140-440); RDW Standard Deviation 39.6 fL (36.4-46.3); Red Blood Count 4.45 Miln/mm3 (4.00-5.20); White Blood Count 7.3 Thou/mm3 (3.6-11.0)
[2024-09-16 09:37] LABS: Parathyroid Hormone Intact 117.6 pg/ml (18.5-88.0)
[2024-09-16 09:47] LABS: Vitamin D 25 Hydroxy Total 24.8 ng/mL (7.3-40.2)
[2024-09-16 09:49] LABS: Alanine Aminotransferase 30 U/L (10-49); Albumin/Globulin Ratio 1.9 (1.2-2.2); Alkaline Phosphatase 75 U/L (46-116); Anion Gap 9 (7-16); Aspartate Amino Transferase 20 U/L (0-34); BUN/Creatinine Ratio 14 Ratio (12-20); Bilirubin,Total 0.3 mg/dL (0.3-1.2); Blood Urea Nitrogen 30 mg/dL (9-23); Calcium 9.1 mg/dL (8.3-10.6); Calcium (Corrected) 9.1 mg/dL (8.5-10.1); Carbon Dioxide 24.2 mMol/L (20.0-31.0); Cardiac Risk Estimate 3.6 RATIO (3.7-5.6); Chloride 108 mMol/L (98-107); Cholesterol 143 mg/dL (132-200); Creatinine (Component) 2.1 mg/dL (0.6-1.3); Globulin 2.1 gm/dL (2.3-3.5); Glucose 232 mg/dL (74-106); HDL Cholesterol 40 mg/dL (40-60); LDL Cholesterol,Calculated 49 mg/dL (0-130); Osmolality,Calculated 294 (275-295); Phosphorous 3.5 mg/dL (2.4-5.1); Potassium 4.3 mMol/L (3.4-5.1); Sodium 141 mMol/L (136-145); Total Protein 6.1 gm/dL (5.7-8.2); Triglycerides 269 mg/dL (30-150); eGFR 24 See Note
[2024-09-16 09:52] LABS: Collection Type, Urine Clean Catch
[2024-09-16 10:08] LABS: Glucose Estimated Average 180 mg/dL (80-131); Hemoglobin A1C 7.9 % Hgb (4.8-6.0)
[2024-09-16 10:36] LABS: Bilirubin,Urine Negative (Negative); Blood,Urine 1+ (Negative); Color,Urine Lt-Yellow (Lt Yel-Yel); Glucose, Urine 2+ (Negative); Hyaline Casts,Urine < 1 /hpf (0-1); Ketones,Urine Negative (Negative); Leukocyte Esterase,Urine Positive (Negative); Nitrite,Urine Negative (Negative); PH,Urine 6.5 (5.0-7.0); Protein,Urine 3+ (Neg - Trace); RBC,Urine 5 /hpf (0-3); Specific Gravity,Urine 1.015 (1.001-1.035); Squamous Epithelial Cell,Urine 1 /hpf (0-5); Urobilinogen,Urine Negative mg/dL (0.0-1.0); WBC,Urine 23 /hpf (0-5)
[2024-09-16 11:03] LABS: Clarity,Urine Hazy (Clear/Hazy); Culture Indicated,Urine Yes
== END | disposition home or self-care (01) ==
LOC: COPL 08:27
PROVIDERS: PCP Family Medicine; Referring Provider Internal Medicine Nephrology; Visit Provider Physician Assistant
DX: E11.65 Type 2 diabetes mellitus with hyperglycemia (principal); E55.9 Vitamin D deficiency, unspecified; E78.5 Hyperlipidemia, unspecified; N18.30 Chronic kidney disease, stage 3 unspecified; I12.9 Hypertensive chronic kidney disease with stage 1 through stage 4 chronic kidney disease, or unspecified chronic kidney disease; E11.22 Type 2 diabetes mellitus with diabetic chronic kidney disease
CPT/HCPCS: 36415; 80053; 80061; 80069; 81001; 82306; 83036; 83970; 84100; 85025; 87086

== ENCOUNTER 2024-10-11 09:34 | Inpatient (IN) | payer OTHER, MEDICAID, MEDICARE, SELFPAY ==
[2024-10-11] VITALS (7 sets, daily range): BP systolic 108–176; BP diastolic 45–85; PULSE 43–74; RESP 16–18; TEMP 36.6–36.9; O2SAT 96–99; BMI 28.4
--- NOTE | 2024-10-11 09:36 | EKG_ITS ---
[facility] Test Date: 2024-10-11 Pat Name: MONA STEVENS Department: Room: - Gender: Female Fairing Man: : 1945 Requested By: Mechelle Omalley Order Number: [id number] Reading MD: Mechelle Omalley Measurements Intervals [place] Rate: 65 P: 23 FL: 212 QRS: -48 QRSD: 98 T: 31 QT: 398 QTc: 415 Interpretive Statements SINUS RHYTHM WITH FIRST DEGREE AV BLOCK PATTERN CONSISTENT WITH PULMONARY DISEASE LEFT ANTERIOR FASCICULAR BLOCK [QRS AXIS <= -45, QR IN I, RS IN II] Compared to ECG 09/09/2024 10:24:56 First degree AV block now present Sinus bradycardia no longer present /store/S0/[id number]
--- NOTE | 2024-10-11 09:36 | XR_ITS ---
Examination: AP chest single view Technique : AP portable upright chest single view Date and time: October 11, 2024 1031 hours INDICATIONS: Chest pain today. FINDINGS: Normal heart size Lungs are clear. Intact osseous structures IMPRESSION: No active disease
[2024-10-11] MEDS: SODIUM CHLORIDE 0.9% 1000 ML 1,000 ML 999 ML IV (09:55)
[2024-10-11 10:05] LABS: Basophils % (Auto) 0 % (0-2.5); Eosinophils # (Auto) 0.2 Thou/mm3 (0.0-0.5); Eosinophils % (Auto) 3 % (0-10); Hematocrit 33.1 % (36.0-46.0); Hemoglobin 11.9 g/dL (12.0-16.0); Immature Granulocytes % (Auto) 0 % (0-0); Immature Granulocytes Auto 0.02 Thou/mm3 (0.00-0.00); Lymphocytes # (Auto) 1.8 Thou/mm3 (1.0-4.8); Lymphocytes % (Auto) 30 % (10-50); Mean Corpuscular Hemoglobin 29.6 pg (25.0-35.0); Mean Corpuscular Volume 82 fL (80-100); Monocytes # (Auto) 0.4 Thou/mm3 (0.0-0.8); Monocytes % (Auto) 7 % (0-12); Neutrophils # (Auto) 3.7 Thou/mm3 (1.8-7.7); Neutrophils % (Auto) 60 % (37-80); Nucleated Red Blood Cell % 0 /100 WBC (0); Platelet Count 221 Thou/mm3 (140-440); RDW Standard Deviation 38.4 fL (36.4-46.3); Red Blood Count 4.02 Miln/mm3 (4.00-5.20); White Blood Count 6.1 Thou/mm3 (3.6-11.0)
[2024-10-11 10:21] LABS: B-Type Natriuretic Peptide 212 pg/mL (0-100)
[2024-10-11 10:32] LABS: Partial Thromboplastin Time 28.4 Seconds (22.0-36.0); Prothrombin Time 11.2 Seconds (9.0-12.2)
[2024-10-11 10:33] LABS: Alanine Aminotransferase 10 U/L (10-49); Albumin, Serum 4.1 gm/dL (3.4-4.8); Alkaline Phosphatase 68 U/L (46-116); Anion Gap 9 (7-16); Aspartate Amino Transferase 13 U/L (0-34); BUN/Creatinine Ratio 18 Ratio (12-20); Bilirubin,Total 0.4 mg/dL (0.3-1.2); Blood Urea Nitrogen 30 mg/dL (9-23); Calcium 8.8 mg/dL (8.3-10.6); Calcium (Corrected) 8.8 mg/dL (8.5-10.1); Carbon Dioxide 20.8 mMol/L (20.0-31.0); Chloride 110 mMol/L (98-107); Creatinine (Component) 1.7 mg/dL (0.6-1.3); Estimated Creatinine Clearance 28.5 mL/min (>60); Globulin 2.1 gm/dL (2.3-3.5); Glucose 150 mg/dL (74-106); Lipase 79 U/L (12-53); Magnesium 1.8 mg/dL (1.6-2.6); Osmolality,Calculated 288 (275-295); Potassium 4.4 mMol/L (3.4-5.1); Sodium 140 mMol/L (136-145); Total Protein 6.2 gm/dL (5.7-8.2); Troponin I < 0.020 ng/mL (0.0-0.045); eGFR 31 See Note
--- NOTE | 2024-10-11 10:39 | PD.EDADULT ---
ED General RME/HPI General Chief complaint: Dizziness Stated complaint: DIZZINESS Time Seen by Provider: 10/11/24 09:36 Arrival date/time: 10/11/24 09:34 RME / HPI RME / HPI narrative: This patient is a 79-year-old female with past medical history of hypertension, diabetes on Mounjaro, CKD stage IIIB follows Dr Painting presented to the ED with chief complaint of dizziness/syncope 1 day ago. Patient reported that she has been having dizziness more than a month ago. EMS reported that her heart rate was 40s with junctional rhythm when she was evaluated with significant orthostatic vitals with SBP drop more than 20 mmHg. Her blood pressure was 130/78 dropped to 100/35. She follows up with her PCP and her milk powder grinder is Dr. Pena.. Patient reported that she was laying in the bed this morning when she started feeling dizzy and had a blackout in front of her eyes without any loss of consciousness lasting for a minute which was witnessed by her daughter on the bedside. She has been having several episodes of this from last 1 month. She endorses breathing difficulty associated with chest pain nonradiating constant achy rated as 8 on 10, back pain achy constant nonradiating more in the epigastric region rated as 8 on 10 and post syncope headache generalized rated as 5 on 10. Patient also endorses burning with dysuria from last 2 to 3 weeks ago. She reports to endorse lower ext swelling. No other symptoms reported. PMH: As above PSH: Back surgery with screws plates since injury at work 2 years ago SH: Denies smoking or drinking alcohol. No history of illicit drug use Allergies: No known drug allergies Home medications: Gabapentin 300 mg 3 times daily, metoprolol succinate 25 mg p.o., amlodipine 10 mg p.o., dicyclomine 10 mg as needed for epigastric pain, ezetimibe 10 mg, simvastatin 40 mg at bedtime, Mounjaro once every week Vitals showed blood pressure 125/68, heart rate 64, respiratory rate 16 and afebrile. She was saturating well on room air. CMP showed sodium 140, potassium 4.4, CL 110. Kidney function showed BUN 30 and creatinine 1.7, GFR 31%. Baseline creatinine 1.6 from 09/12/24. Blood glucose 150. Magnesium 1.8. Liver enzymes unremarkable. Troponin I was negative. BNP slightly elevated to 12. Lipase was elevated at 79.EKG showed sinus rhythm with first-degree AV block. Heart rate 65 QTc 415. Left anterior fascicle block. Left axis deviation. Differential diagnoses include syncope due to heart block, arrhythmias, LA, pancreatitis, hypotension, medication side effect patient takes gabapentin and metoprolol,UTI Patient was given 1 L bolus of NS x 1. Additionally, she was given pepcide and tylenol x1 for headache. 9: 58 CBC showed hemoglobin 11.9. Platelet count 221. INR 1.0. Urinalysis showed proteinuria 3+, leukocyte esterase 2+, RBC 10. U tox was negative. 11:00 milk powder grinder, Dr. Pena was consulted and per his recommendation patient was admitted for close observation for symptomatic bradycardia. Discussed case with hospitalist team regarding admission. Discussed patient's ED course, exam findings, labs and radiology results. Hospitalist team agreed to accept the patient for admission. 12: 59 Dr. Pena called back again and stated that he has not seen the patient for last 10 years and admitting team can consult on-call milk powder grinder for further evaluation. Patient was also found to have UTI and was started on antibiotic. MD complaint: Syncope Onset (ago): month(s) (1) Associated symptoms: chest pain, shortness of breath, syncope and weakness Related Data Home Medications ?Medication ?Instructions ?Recorded ?Confirmed lisinopril 20 mg tablet 40 mg PO QDAY 03/13/18 09/09/24 simvastatin 20 mg tablet 40 mg PO DAILY 03/13/18 09/09/24 amlodipine 10 mg tablet 10 mg PO DAILY 03/02/23 09/09/24 furosemide 40 mg tablet (Lasix) 40 mg PO QDAY PRN Edema 03/02/23 09/09/24 Held on 09/10/24. Instructions: Resume on 09/17/24. Follow up with PCP gabapentin 300 mg capsule 300 mg PO TID 03/02/23 09/09/24 ezetimibe 10 mg tablet 10 mg PO QDAY 08/31/23 09/09/24 tirzepatide 2.5 mg/0.5 mL 2.5 mg subcut QWEEK 08/31/23 09/09/24 subcutaneous pen injector (Sol) hydrochlorothiazide 25 mg tablet 25 mg PO QDAY 07/22/24 09/09/24 Held on 09/10/24. Instructions: Resume on 09/17/24. Follow up with PCP pantoprazole 40 mg tablet,delayed 40 mg PO QDAY 07/22/24 09/09/24 release dicyclomine 10 mg capsule 10 mg PO BID 09/09/24 09/09/24 tizanidine 4 mg tablet 4 mg PO HS PRN muscle spasticity 09/09/24 09/09/24 Allergies Allergy/AdvReac Type Severity Reaction Status Date / Time No Known Allergies Allergy Verified 09/09/24 09:46 Review of Systems Review of Systems Systems Reviewed: All systems reviewed, normal except as documented Past Medical History Past Medical History Comments PMH COMMENT: PMH: Positive for chronic kidney disease (follows Dr. Oquendo), hypertension, hyperlipidemia, diabetes melitis, GERD and chronic pain PSHx: Back surgery, shoulder surgery Allergies: No known drug and food allergies Social history: -Smoking: Denies -Alcohol Use: Denies -Illicit Drug Use: Denies -Occupation: Retired Family History: No significant pertinent family history ED Exam Narrative Physical exam: GENERAL APPEARANCE: AxOx4, elderly female in no acute distress. Saturating well on room air. HEENT: NC, AT. MMM. EOMI, clear conjunctiva, oropharynx clear. NECK: Supple without lymphadenopathy. No stiffness or restricted ROM. HEART: Regular rate and regular rhythm, normal S1/S2, no m/r/g LUNGS: CTAB, moving air well. No crackles or wheezes are heard. ABDOMEN: Soft, epigastric tenderness, nondistended with good bowel sounds heard. BACK: No CVAT, no obvious deformity. EXTREMITIES: Without cyanosis, clubbing or edema. NEUROLOGICAL: Grossly nonfocal. Alert and oriented, moving all 4 extremities. CN not formally tested but appear grossly intact. Observed to ambulate with normal gait. Skin: Warm and dry without any rash. Psych: Appropriate mood and affect Course Course Course Narrative: This patient is a 79-year-old female with past medical history of hypertension, diabetes on Mounjaro, CKD stage IIIB follows Dr Painting presented to the ED with chief complaint of dizziness/syncope 1 day ago. Patient reported that she has been having dizziness more than a month ago. EMS reported that her heart rate was 40s with junctional rhythm when she was evaluated with significant orthostatic vitals with SBP drop more than 20 mmHg. Her blood pressure was 130/78 dropped to 100/35. She follows up with her PCP and her milk powder grinder is Dr. Pena.. Patient reported that she was laying in the bed this morning when she started feeling dizzy and had a blackout in front of her eyes without any loss of consciousness lasting for a minute which was witnessed by her daughter on the bedside. She has been having several episodes of this from last 1 month. She endorses breathing difficulty associated with chest pain nonradiating constant achy rated as 8 on 10, back pain achy constant nonradiating more in the epigastric region rated as 8 on 10 and post syncope headache generalized rated as 5 on 10. Patient also endorses burning with dysuria from last 2 to 3 weeks ago. No other symptoms reported. Vitals showed blood pressure 125/68, heart rate 64, respiratory rate 16 and afebrile. She was saturating well on room air. CMP showed sodium 140, potassium 4.4, CL 110. Kidney function showed BUN 30 and creatinine 1.7, GFR 31%. Baseline creatinine 1.6 from 09/12/24. Blood glucose 150. Magnesium 1.8. Liver enzymes unremarkable. Troponin I was negative. BNP slightly elevated to 12. Lipase was elevated at 79.EKG showed sinus rhythm with first-degree AV block. Heart rate 65 QTc 415. Left anterior fascicle block. Left axis deviation. Differential diagnoses include syncope due to heart block, arrhythmias, LA, pancreatitis, hypotension, medication side effect Patient was given 1 L bolus of NS x 1. Additionaly she was given pepcide and tylenol x1 for headache. 9: 58 CBC showed hemoglobin 11.9. Platelet count 221. INR 1.0. Urinalysis showed proteinuria 3+, leukocyte esterase 2+, RBC 10. U tox was negative. 11:00 milk powder grinder, Dr. Pena was consulted and per his recommendation patient was admitted for close observation for symptomatic bradycardia. Discussed case with hospitalist team regarding admission. Discussed patient's ED course, exam findings, labs and radiology results. Hospitalist team agreed to accept the patient for admission. 12: 59 Dr. Pena called back again and stated that he has not seen the patient for last 10 years and admitting team can consult on-call milk powder grinder for further evaluation. Patient was also found to have UTI and was started on antibiotic. Quality Measures none Orders Category Date Time Status Admit to Inpatient Status Routine Admission 10/11/24 12:14 Active Patient Condition Routine Admission 10/11/24 12:14 Ordered Bedside Blood Glucose ACHS Care 10/11/24 12:15 Active COVID-19 Screening Questionnaire NOW Care 10/11/24 11:09 Active COVID-19 Screening Questionnaire NOW Care 10/11/24 12:58 Active Field Contact Technician NOW Care 10/11/24 09:36 Active Continuous Pulse Oximetry NOW Care 10/11/24 12:14 Active Decision to Admit X1 Care 10/11/24 11:08 Completed Decision to Admit X1 Care 10/11/24 12:00 Active EKG (ED ONLY) *Do not use* NOW Care 10/11/24 09:36 Completed Miscellaneous Nursing Order NOW Care 10/11/24 10:50 Active Notify provider NEEDED Care 10/11/24 12:14 Active Sequential Compression Device QSHIFT Care 10/11/24 12:15 Active Diet Cardiac Diet 10/11/24 Dinner Active CA echo doppler complete Routine Exams 10/11/24 12:[address] head/brain wo con Stat Exams 10/11/24 11:18 Taken EKG (ED Only) Stat Exams 10/11/24 09:36 Draft EKG (ED Only) Stat Exams 10/11/24 10:37 Ordered US carotid duplex Stat Exams 10/11/24 12:15 Ordered XR chest 1V portable Stat Exams 10/11/24 09:36 Completed A1C [Glycohemoglobin w (eAG)] Routine Lab 10/11/24 09:58 Received B-Type Natriuretic Peptide Stat Lab 10/11/24 09:58 Completed Basic Metabolic Panel AM DRAW Lab 10/12/24 05:00 Ordered Basic Metabolic Panel AM DRAW Lab 10/13/24 05:00 Ordered Basic Metabolic Panel AM DRAW Lab 10/14/24 05:00 Ordered Basic Metabolic Panel AM DRAW Lab 10/15/24 05:00 Ordered Basic Metabolic Panel AM DRAW Lab 10/16/24 05:00 Ordered CBC AM DRAW Lab 10/12/24 05:00 Ordered CBC AM DRAW Lab 10/13/24 05:00 Ordered CBC AM DRAW Lab 10/14/24 05:00 Ordered CBC AM DRAW Lab 10/15/24 05:00 Ordered CBC AM DRAW Lab 10/16/24 05:00 Ordered CBC Stat Lab 10/11/24 09:58 Completed Comprehensive Metabolic Panel Stat Lab 10/11/24 09:58 Completed Drug Screen,Urine Stat Lab 10/11/24 11:12 Completed Lipase Stat Lab 10/11/24 09:58 Completed Lipid Panel Routine Lab 10/11/24 12:17 Ordered Magnesium AM DRAW Lab 10/12/24 05:00 Ordered Magnesium AM DRAW Lab 10/13/24 05:00 Ordered Magnesium AM DRAW Lab 10/14/24 05:00 Ordered Magnesium Stat Lab 10/11/24 09:58 Completed Partial Thromboplastin Time Stat Lab 10/11/24 09:58 Completed Phosphorous AM DRAW Lab 10/12/24 05:00 Ordered Phosphorous AM DRAW Lab 10/13/24 05:00 Ordered Phosphorous AM DRAW Lab 10/14/24 05:00 Ordered Prothrombin Time with INR Stat Lab 10/11/24 09:58 Completed Troponin I Stat Lab 10/11/24 09:58 Completed Urinalysis Stat Lab 10/11/24 11:12 Completed Urine Culture Routine Lab 10/11/24 11:08 Received Acetaminophen Tab [Tylenol Tab] Med 10/11/24 12:15 Active 650 mg PO Q6H PRN Acetaminophen Tab [Tylenol Tab] Med 10/11/24 10:49 Discontinued 650 mg PO X1 ONE Dextrose 50% Syr [D50w Syringe Abboject] Med 10/11/24 12:15 Active 25 ml IV Q15MIN PRN Dextrose 50% Syr [D50w Syringe Abboject] Med 10/11/24 12:15 Active 50 ml IV Q15MIN PRN Famotidine Inj [Pepcid Inj] Med 10/11/24 10:49 Discontinued 20 mg IVP X1 ONE Glucagon Inj Med 10/11/24 12:15 Active 1 mg IM Q15MIN PRN INSULIN LISPRO (AdmeLOG) [HumaLOG] Med 10/11/24 17:00 Active See Protocol SC AC Ondansetron Inj [Zofran Inj] Med 10/11/24 12:15 Active 4 mg IV Q6H PRN Pantoprazole [Protonix] Med 10/12/24 09:00 Active 40 mg PO QDAY Ringers Lactated 1000 ml [Lactated Ringers] 1,000 ml Med 10/11/24 12:15 Active IV 75 mls/hr Sodium Chloride 0.9% 1000 ml [Ns] 1,000 ml Med 10/11/24 09:37 Discontinued IV 999 mls/hr cefTRIAXone/D5w 1gm IV premix [Rocephin/D5w 1gm IV Med 10/11/24 12:20 Active premix] 1 gm in 50 ml IV QDAY Code Status Routine Oth 10/11/24 12:14 Ordered Vital Signs Vital signs: Vital Signs Pulse Rate 67 10/11/24 09:36 Discharge Plan Plan Patient Disposition: Admit Acute Care w/in Hospital Prescriptions/Referrals Prescriptions/Med Rec: No Action lisinopril 20 mg Tablet 40 mg PO QDAY simvastatin 20 mg Tablet 40 mg PO DAILY amlodipine 10 mg tablet 10 mg PO DAILY gabapentin 300 mg capsule 300 mg PO TID furosemide [Lasix] 40 mg tablet 40 mg PO QDAY PRN (Reason: Edema) ezetimibe 10 mg tablet 10 mg PO QDAY Mounjaro 2.5 mg/0.5 mL pen injector 2.5 mg SUBCUT QWEEK Rx Instructions: ON SUNDAYS dicyclomine 10 mg capsule 10 mg PO BID tizanidine 4 mg tablet 4 mg PO HS PRN (Reason: muscle spasticity) pantoprazole 40 mg tablet,delayed release (DR/EC) 40 mg PO QDAY Patient Comments: TAKE 1 TABLET BY MOUTH EVERY DAY hydrochlorothiazide 25 mg tablet 25 mg PO QDAY Patient Comments: TAKE 1 TABLET BY MOUTH EVERY MORNING FOR 90 DAYS Referrals: Rubia Matthews PA-C [Primary Care Provider] - In 1 week Problem List Clinical Impression: Symptomatic bradycardia, Syncope, Acute UTI Patient/Caregiver Discharge Instructions Print Language: Moroccan Stand Alone Forms: Jennifer Award Info., Patient Portal Info Letter MDM Narrative MDM hospital course (for use when minimal MDM required): This patient is a 79-year-old female with past medical history of hypertension, diabetes on Mounjaro, CKD stage IIIB follows Dr Painting presented to the ED with chief complaint of dizziness/syncope 1 day ago. Patient reported that she has been having dizziness more than a month ago. EMS reported that her heart rate was 40s with junctional rhythm when she was evaluated with significant orthostatic vitals with SBP drop more than 20 mmHg. Her blood pressure was 130/78 dropped to 100/35. She follows up with her PCP and her milk powder grinder is Dr. Farris. Patient reported that she was laying in the bed this morning when she started feeling dizzy and had a blackout in front of her eyes without any loss of consciousness lasting for a minute which was witnessed by her daughter on the bedside. She has been having several episodes of this from last 1 month. She endorses breathing difficulty associated with chest pain nonradiating constant achy rated as 8 on 10, back pain achy constant nonradiating more in the epigastric region rated as 8 on 10 and post syncope headache generalized rated as 5 on 10. Patient also endorses burning with dysuria from last 2 to 3 weeks ago. No other symptoms reported. Vitals showed blood pressure 125/68, heart rate 64, respiratory rate 16 and afebrile. She was saturating well on room air. CMP showed sodium 140, potassium 4.4, CL 110. Kidney function showed BUN 30 and creatinine 1.7, GFR 31%. Baseline creatinine 1.6 from 09/12/24. Blood glucose 150. Magnesium 1.8. Liver enzymes unremarkable. Troponin I was negative. BNP slightly elevated to 12. Lipase was elevated at 79.EKG showed sinus rhythm with first-degree AV block. Heart rate 65 QTc 415. Left anterior fascicle block. Left axis deviation. Differential diagnoses include syncope due to heart block, arrhythmias, LA, pancreatitis, hypotension, medication side effect Patient was given 1 L bolus of NS x 1. Additionaly she was given pepcide and tylenol x1 for headache. 9: 58 CBC showed hemoglobin 11.9. Platelet count 221. INR 1.0. Urinalysis showed proteinuria 3+, leukocyte esterase 2+, RBC 10. U tox was negative. 11:00 milk powder grinder, Dr. Pena was consulted and per his recommendation patient was admitted for close observation for symptomatic bradycardia. Discussed case with hospitalist team regarding admission. Discussed patient's ED course, exam findings, labs and radiology results. Hospitalist team agreed to accept the patient for admission. 12: 59 Dr. Pena called back again and stated that he has not seen the patient for last 10 years and admitting team can consult on-call milk powder grinder for further evaluation. Patient was also found to have UTI and was started on antibiotic. Medication Administration(s) Medication Administration History Acetaminophen (Acetaminophen 325 Mg Tablet) 650 mg PO Q6H PRN PRN Reason: PAIN 1-3 OR FEVER > 100.4 Stop: 11/10/24 12:14 Dextrose (Dextrose 50%-Water Inj 50 Ml Syringe) 25 ml IV Q15MIN PRN PRN Reason: BG 50-70 responsive npo pt Stop: 11/10/24 12:14 Dextrose (Dextrose 50%-Water Inj 50 Ml Syringe) 50 ml IV Q15MIN PRN PRN Reason: BG <50 OR BG <70 & pt unresponsive Stop: 11/10/24 12:14 Glucagon (Glucagon Inj 1 Mg Vial) 1 mg IM Q15MIN PRN PRN Reason: BG <70, and no IV access Lactated Ringer's (Lactated Ringers) 1,000 mls @ 75 mls/hr IV .[id number] CLIFF Stop: 10/13/24 12:14 Ceftriaxone Sodium/Dextrose (Rocephin/D5w 1gm Iv Premix) 1 gm in 50 mls @ 100 mls/hr IV QDAY [facility] Stop: 10/18/24 12:19 Insulin Human Lispro (Insulin Lispro (Admelog) 1 Unit/0.01 Ml Unit) 0 unit SC AC [facility]; Protocol Stop: 11/10/24 16:59 Ondansetron HCl (Ondansetron Inj 2 Mg/Ml Inj 2 Ml) 4 mg IV Q6H PRN; Protocol PRN Reason: NAUSEA OR VOMITING Stop: 11/10/24 12:14 Pantoprazole Sodium (Pantoprazole 40 Mg Tablet) 40 mg PO QDAY [facility] Stop: 11/11/24 08:59 Discontinued Medications Acetaminophen (Acetaminophen 325 Mg Tablet) 650 mg PO X1 ONE Stop: 10/11/24 10:50 Last Admin: 10/11/24 11:20 Dose: 650 mg Documented By: RAZIA Famotidine (Famotidine Inj 10 Mg/Ml Vial 2 Ml) 20 mg IVP X1 ONE Stop: 10/11/24 10:50 Last Admin: 10/11/24 11:22 Dose: 20 mg Documented By: RAZIA Sodium Chloride (Ns) 1,000 mls @ 999 mls/hr IV .Q1H1M ONE Stop: 10/11/24 10:37 Last Infusion: 10/11/24 11:37 Dose: Infused Documented By: Admin: 10/11/24 09:55 Dose: 999 mls/hr Documented By: PHIL
[2024-10-11 11:16] LABS: Collection Type, Urine Clean Catch
--- NOTE | 2024-10-11 11:18 | XR_ITS ---
Examination: CT brain head without contrast. 2-D sagittal coronal reconstructions Date and time of exam:October 11, 2024 1216 hours Comparison June 18, 2022 INDICATIONS: Syncope and dizziness today CTDI: vol (mGy):44.8 DLP: (mGycm):998 Technique: Multiple CT axial sections of the brain have been obtained, 5 mm slice thickness. Contrast has not been administered. 2-D sagittal, coronal reconstructions have been obtained Low dose protocols were performed. One or more of the following dose reduction techniques were used; automated exposure control, adjustment of the mA and/or KV according to patient size, use of iterative reconstruction technique. Findings: No significant ventricular enlargement. Intra-axial or extra-axial hemorrhage density is not seen. No mass effect or midline shift Basal cisterns are not remarkable. Fourth ventricle is midline. Cranial vault intact. Impression: Negative for acute hemorrhage, mass effect or midline shift
[2024-10-11 11:19] LABS: Bilirubin,Urine Negative (Negative); Blood,Urine Trace-Intact (Negative); Clarity,Urine Clear (Clear/Hazy); Color,Urine Lt Yellow (Lt Yel-Yel); Glucose, Urine Negative (Negative); Ketones,Urine Negative (Negative); Leukocyte Esterase,Urine 2+ (Negative); Nitrite,Urine Negative (Negative); Protein,Urine 3+ (Neg - Trace); Specific Gravity,Urine 1.015 (1.001-1.035); Urobilinogen,Urine 0.2 mg/dL (0.0-1.0)
[2024-10-11] MEDS: ACETAMINOPHEN 325 MG TABLET 650 MG PO ×2 (11:20→22:52)
[2024-10-11] MEDS: FAMOTIDINE INJ 10 MG/ML VIAL 2 ML 20 MG IVP (11:22)
[2024-10-11 11:41] LABS: Amphetamine/Methamp Scrn,U Negative (Negative); Barbiturate Screen,Urine Negative (Negative); Benzodiazepines Screen,Urine Negative (Negative); Benzoylecgonine Screen, Ur Negative (Negative); Fentanyl Screen,Urine Negative (Negative); Opiate Screen,Urine Negative (Negative); THC Screen,Urine Negative (Negative)
--- NOTE | 2024-10-11 12:15 | XR_ITS ---
Examination: Carotid arterial duplex scan, ultrasound. Date and time of exam: October 11, 2024 1315 hours INDICATIONS: Dizziness episodes beginning one month ago Technique: Multiple sonographic images have been obtained of the carotid arteries and vertebral arteries, B-mode/grayscale imaging and Doppler spectral analysis and color flow Peak systolic and diastolic velocities have been recorded. Systolic diastolic ratios have been calculated. Findings: Right peak systolic velocities: Distal internal carotid artery peak systolic velocity is 0.1 M/sec Proximal internal carotid artery peak systolic velocity is 0.6 M/sec Carotid bifurcation peak systolic velocity is 1.0 M/sec External carotid artery peak systolic velocity is 0.8 M/sec Vertebral artery flow is antegrade. Left peak systolic velocities: Distal internal carotid artery peak systolic velocity is 0.7 M/sec Proximal internal carotid artery peak systolic velocity is 0.5 M/sec Carotid bifurcation peak systolic velocity is 0.9 M/sec External carotid artery peak systolic velocity is 1.1 M/sec Vertebral artery flow is antegrade Doppler waveform analysis demonstrates no spectral broadening Impression: Right internal carotid artery demonstrates 0-10% stenosis. Left internal carotid artery suspicious for significant stenosis distal left internal carotid artery, recommend correlation with CTA carotid arteries post contrast follow-up
--- NOTE | 2024-10-11 12:17 | ECHO_ITS ---
Transthoracic Echo Report Ht (in): 64 Wt (lb): 170 Exam Location: Echo Lab Status: Inpatient Chlorination Operator: Yulisa Leal Indications: Procedure Performed: BP: / HR: Technical Quality: Technically difficult study MEASUREMENTS (Male / Female) Normal Values 2D ECHO LV Diastolic Diameter PLAX 2.6 cm 4.2 - 5.9 / 3.9 - 5.3 cm LV Systolic Diameter PLAX 1.9 cm IVS Diastolic Thickness 0.9 cm 0.6 - 1.0 / 0.6 - 0.9 cm LVPW Diastolic Thickness 1.2 cm 0.6 - 1.0 / 0.6 - 0.9 cm LV Relative Wall Thickness 0.8 LVOT Diameter 1.8 cm LA Systolic Diameter LX 3.0 cm 3.0 - 4.0 / 2.7 - 3.8 cm LA Volume Index 24.1 cm?/m? 16 - 28 cm?/m? M-MODE Aortic Root Diameter MM 2.0 cm LA Systolic Diameter MM 3.0 cm LA Ao Ratio MM 1.5 AV Cusp Separation MM 1.2 cm DOPPLER AV Peak Velocity 129.0 cm/s AV Peak Gradient 6.7 mmHg AV Mean Gradient 3.0 mmHg AV Velocity Time Integral 32.0 cm LVOT Peak Velocity 111.0 cm/s LVOT Peak Gradient 4.9 mmHg LVOT Velocity Time Integral 29.0 cm AV Area Cont Eq vti 2.3 cm? AV Area Cont Eq pk 2.2 cm? MV Area PHT 3.6 cm? MR Peak Velocity 428.0 cm/s MR Peak Gradient 73.3 mmHg Mitral E Point Velocity 78.6 cm/s Mitral A Point Velocity 122.0 cm/s Mitral E to A Ratio 0.6 LV E' Lateral Velocity 6.5 cm/s Mitral E to LV E' Lateral Ratio 12.0 LV E' Septal Velocity 5.4 cm/s Mitral E to LV E' Septal Ratio 14.4 TR Peak Velocity 234.0 cm/s TR Peak Gradient 21.9 mmHg PV Peak Velocity 119.0 cm/s PV Peak Gradient 5.7 mmHg FINDINGS Left Ventricle Normal left ventricular size, wall thickness, systolic function with no obvious regional wall motion abnormalities. There is grade I diastolic dysfunction of the left ventricle (impaired relaxation pattern). The ejection fraction is visually estimated at 55-60 %. Right Ventricle The right ventricle is normal in size and systolic function. Left Atrium The left atrium is normal by two-dimensional, color flow and Doppler imaging with no structural abnormalities, no thrombus formation present. Right Atrium The right atrium is normal by two-dimensional imaging, color flow and Doppler imaging with no structural abnormalities, no thrombus formation present. Atrial Septum The interatrial septum appears normal with no evidence of a shunt. Aorta The aorta is normal by two-dimensional, color flow and Doppler interrogation. Mitral Valve The mitral valve is normal by two-dimensional, color flow and Doppler interrogation. There is trace mitral regurgitation. Aortic Valve The aortic valve is trileaflet and normal by two-dimensional, color flow and Doppler interrogation. There is no significant aortic valve regurgitation. Tricuspid Valve The tricuspid valve is normal by two-dimensional, color flow and Doppler interrogation. There is trace tricuspid valve regurgitation. Pulmonic Valve The pulmonic valve is not well visualized. There is no significant pulmonic valve regurgitation. Vessels The pulmonary artery appears normal. The inferior vena cava pulmonary and hepatic veins appear normal. Pericardium The pericardium is normal by two-dimensional imaging. There is no significant pericardial effusion. CONCLUSIONS Indication: chest discomfort Normal LV size and function. Estimated EF 55-60 %. Grade I diastolic dysfunction of the left ventricle (impaired relaxation pattern). Normal RV size and function. RVSP normal. Trace MR and TR. Trae Bassett (Electronically Signed) Final Date: 14 Oct 2024 01:08
[2024-10-11 12:39] LABS: Bacteria,Urine Rare; RBC,Urine 10 /hpf (0-3); Squamous Epithelial Cell,Urine 5 /hpf (0-5); WBC,Urine 2 /hpf (0-5)
--- NOTE | 2024-10-11 13:04 | ESHP_ITS ---
Documentation for date of: 10/11/24 [facility] History of Present Illness History of present illness: Rachel Gamez is a 79-year-old female with a past medical history of hypertension, type 2 diabetes mellitus on Mounjaro, and CKD IIIb (follows Dr. Oquendo) who presents on 10/11 for presyncope and chest discomfort. Patient's son at bedside and helped provide additional history. For approximately one month patient has been experiencing episodes substernal chest tightness that radiates to the front of her neck and back with associated shortness of breath, temporary vision loss, and headaches. These episodes can occur when she is at rest, laying down, or when she is moving around. Denies orthopnea but episodes of shortness of breath do occur when she wakes up and does endorse lower extremity swelling. She had seen military personnel specialist, Dr. Pena, over ten years ago but cannot recall why and denies any previous cardiac procedures, MIs, or strokes. However, son states that close to one year ago, patient experienced significant emotional stress and had an acute episode of slurred speech and weakness requiring the use of a cane but did not seek medical attention. Since then son states that her speech slurs at times but at this time she was at her baseline and patient only requires the use of a cane when she feels episodes of dizziness. She also states that she records her blood pressure at home and has seen numbers as high as the 200s and is only currently on amlodipine 10 mg daily and metoprolol succinate 25 mg daily. Of note, also endorsing dysuria for the last week. In ED, vital signs stable. Per chart review and sign out, EMS did an EKG and showed heart rate in 40s with first degree AV block. Orthostatic vitals were also performed at the time and results were as follows: 130/78 to 100/35. Troponins negative, BNP 212. Cr 1.7 (at BL), GFR 31, lipase 79. UA: 3+ protein, 2+ LE, 10 RBC, rare bacteria. U tox negative. CXR showed no active disease. EKG showed NSR with first degree block. CT head negative for hemorrhage, mass effect, midline shift. PMHx: CKD IIIb, hypertension, type 2 diabetes mellitus Medications: amlodipine 10 mg daily, metoprolol succinate 25 mg daily, simvastatin 40 mg daily, dicyclomine 10 mg twice daily, gabapentin 300 mg three times daily, ezetimibe 10 mg daily SHx: no cigarette use, alcohol consumption, or illicit drug use Review of Systems Review of Systems Systems Reviewed: All systems reviewed, normal except as documented Exam Vital Signs Temp Pulse Resp BP Pulse Ox O2 Del Method 97.8 F 64 16 125/68 96 Room Air 10/11/24 09:59 10/11/24 09:59 10/11/24 09:59 10/11/24 09:59 10/11/24 09:59 10/11/24 09:59 Narrative Exam General: AOx3, no acute distress, able to speak full sentences HEENT: NC/AT, mucous membranes moist, bilateral sclera anicteric Cardiovascular: regular rate and rhythm, S1/S2 present, no murmurs appreciated Pulmonary: clear to auscultation bilaterally, no rales/rhonchi/wheezes Abdominal: epigastric tenderness, soft, non-distended, no rebound/guarding, normal bowel sounds present Musculoskeletal: normal ROM, no peripheral edema Skin: warm and dry, intact, no rashes Neuro: CN II-XII intact, no focal deficits Results: Labs 10/12/24 05:49 10/12/24 05:49 Labs: Short CBC 10/11/24 Range/Units 09:58 WBC 6.1 (3.6-11.0) Thou/mm3 Hgb 11.9 L (12.0-16.0) g/dL Hct 33.1 L (36.0-46.0) % Plt Count 221 D (140-440) Thou/mm3 BMP 10/11/24 09:58 Sodium 140 Potassium 4.4 Chloride 110 H Carbon Dioxide 20.8 BUN 30 H Creatinine 1.7 H Glucose 150 H Calcium 8.8 Cardiac Enzymes 10/11/24 Range/Units 09:58 Troponin I < 0.020 (0.0-0.045) ng/mL Liver Function 10/11/24 Range/Units 09:58 Total Bilirubin 0.4 (0.3-1.2) mg/dL AST 13 (0-34) U/L ALT 10 (10-49) U/L Alkaline Phosphatase 68 (46-116) U/L Albumin 4.1 (3.4-4.8) gm/dL Urine 10/11/24 Range/Units 11:12 Urine Color Lt Yellow (Lt Yel-Yel) Urine Clarity Clear (Clear/Hazy) Urine pH 6.0 (5.0-7.0) Ur Specific [place]lysses 1.015 (1.001-1.035) Urine Protein 3+ A (Neg - Trace) Urine Glucose (UA) Negative (Negative) Quality Measures Quality Measures none Advance care planning discussed with:: patient and child Medications Home Medications and Allergies Home Medications ?Medication ?Instructions ?Recorded ?Confirmed ?Type lisinopril 20 mg tablet 40 mg PO QDAY 03/13/1810/11 History Held on 10/11/24. Instructions: on hold simvastatin 20 mg tablet 40 mg PO DAILY 03/13/1809/26 History amlodipine 10 mg tablet 10 mg PO DAILY 03/02/2309/26 History furosemide 40 mg tablet (Lasix) 40 mg PO QDAY PRN Kendall a 03/02/23 10/11/24 History Held on 09/10/24. Instructions: Resume on 09/17/24. Follow up with PCP gabapentin 300 mg capsule 300 mg PO TID 03/02/2310/11 History ezetimibe 10 mg tablet 10 mg PO QDAY 08/31/2310/11 History tirzepatide 2.5 mg/0.5 mL 2.5 mg subcut QWEEK 08/31/23 10/11/24 History subcutaneous pen injector (Sol) hydrochlorothiazide 25 mg tablet 25 mg PO QDAY 5 10/11/24 History Held on 09/10/24. Instructions: Resume on 09/17/24. Follow up with PCP pantoprazole 40 mg tablet,delayed 40 mg PO QDAY 10/11/24 History release Held on 10/11/24. Instructions: not taking dicyclomine 10 mg capsule 10 mg PO BID 09/09/24 History tizanidine 4 mg tablet 4 mg PO HS PRN muscle [place] 09/09/24 10/11/24 History Held on 10/11/24. Instructions: on hold metoprolol succinate 25 mg 25 mg PO QDAY 10/11/2409/26 History tablet,extended release 24 hr Allergies Allergy/AdvReac Type Severity Reaction Status Date / Time No Known Allergies Allergy Verified 09/09/24 09:46 Visit Medications Acetaminophen (Acetaminophen 325 Mg Tablet) 650 mg PO Q6H PRN PRN Reason: PAIN 1-3 OR FEVER > 100.4 Stop: 11/10/24 12:14 Dextrose (Dextrose 50%-Water Inj 50 Ml Syringe) 25 ml IV Q15MIN PRN PRN Reason: BG 50-70 responsive npo pt Stop: 11/10/24 12:14 Dextrose (Dextrose 50%-Water Inj 50 Ml Syringe) 50 ml IV Q15MIN PRN PRN Reason: BG <50 OR BG <70 & pt unresponsive Stop: 11/10/24 12:14 Glucagon (Glucagon Inj 1 Mg Vial) 1 mg IM Q15MIN PRN PRN Reason: BG <70, and no IV access Lactated Ringer's (Lactated Ringers) 1,000 mls @ 75 mls/hr IV .[id number] [facility] Stop: 10/13/24 12:14 Ceftriaxone Sodium/Dextrose (Rocephin/D5w 1gm Iv Premix) 1 gm in 50 mls @ 100 mls/hr IV QDAY [place] Stop: 10/18/24 12:19 Insulin Human Lispro (Insulin Lispro (Admelog) 1 Unit/0.01 Ml Unit) 0 unit SC [facility]; Protocol Stop: 11/10/24 16:59 Ondansetron HCl (Ondansetron Inj 2 Mg/Ml Inj 2 Ml) 4 mg IV Q6H PRN; Protocol PRN Reason: NAUSEA OR VOMITING Stop: 11/10/24 12:14 Pantoprazole Sodium (Pantoprazole 40 Mg Tablet) 40 mg PO QDAY [facility] Stop: 11/11/24 08:59 Discontinued Medications Acetaminophen (Acetaminophen 325 Mg Tablet) 650 mg PO X1 ONE Stop: 10/11/24 10:50 Last Admin: 10/11/24 11:20 Dose: 650 mg Famotidine (Famotidine Inj 10 Mg/Ml Vial 2 Ml) 20 mg IVP X1 ONE Stop: 10/11/24 10:50 Last Admin: 10/11/24 11:22 Dose: 20 mg Sodium Chloride (Ns) 1,000 mls @ 999 mls/hr IV .Q1H1M ONE Stop: 10/11/24 10:37 Last Infusion: 10/11/24 11:37 Dose: Infused Assessment & Plan Plan Rachel Gamez is a 79-year-old female with a past medical history of hypertension, type 2 diabetes mellitus on Mounjaro, and CKD IIIb (follows Dr. Oquendo) who is admitted for further management of chest discomfort and presyncope. #Atypical chest pain #? Unstable angina For the past month patient has been experiencing atypical chest pain described as substernal pressure/tightness that occurs with activity and rest with associated shortness of breath, headache, dizziness, and temporary vision loss. Of note, she does endorse blood pressure readings as high as the 200s but here in the ED initial BP was 125/68. She was evaluated by cardiology during previous admission for dizziness and found to be orthostatic positive at that time. However, EKG in field noted heart rate in 40s with first degree AV block. Troponins negative, BNP 212, EKG in ED showed NSR with first degree block, HR 60s. A1c 7.5%. Lipid panel 09/16/2024 showed LDL 49, HDL 40, cholesterol 143, TG 269. ? Cardiology consulted, appreciate recommendations ? Follow-up echo ? Monitor on telemetry #Presyncope #Dizziness #Sinus bradycardia #First degree heart block She was evaluated by cardiology during previous admission for dizziness and found to be orthostatic positive at that time. However, EKG in field noted heart rate in 40s with first degree AV block. EKG in ED showed NSR with first degree block, HR 60s. ? Cardiology consulted, appreciate recommendations ? Follow-up carotid duplex ? Follow-up orthostatic vitals ? Hold metoprolol #Pancreatitis Epigastric pain with lipase 79. Unable to perform CTA abdomen/pelvis given kidney disease. ? LR at 75 cc/hr ? Cardiac diet as tolerated #Urinary tract infection Endorses dysuria. UA showed 3+ protein, 2+ LE, 10 RBC, rare bacteria. ? Ceftriaxone 1 g IV daily ? Urine culture #Chronic kidney disease Follows Dr. Oquendo, currently no acute disease. BUN 30, Cr 1.7 on admission. ? Avoid nephrotoxic agents, renally dose medications #Type 2 diabetes mellitus on Mounjaro A1c 7.5% on 10/11/2024. ? SSI ? Accu-Checks ACHS ? Hypoglycemic protocol in place #Primary hypertension Home metoprolol succinate 25 mg daily and amlodipine 10 mg daily ? Will hold metoprolol given sinus bradycardia ? Hold amlodipine at this time given that BP is within range Hospital management: Disposition: pending cardio recs, UTI on antibiotics Fluids: LR at 75 cc/hr Diet: cardiac Lines: PIV DVT prophylaxis: SCDs GI prophylaxis: pantoprazole 40 mg p.o. daily Carvalho: not indicated CODE STATUS: full code ----- After examining the patient and reviewing their clinical data, they would benefit from being admitted to the hospital for further management. Plan discussed with attending physician Dr. Burton Sánchez MD PGY-1 Internal Medicine Attending Provider Attestation/Addendum I reviewed labs, imaging, EKG, home medications and prior available records. Face to face evaluation was performed by me. I have personally examined the patient and discussed assessment and plan with the IM team. I reviewed the resident note and agree with the plan with exceptions as below. Presyncope Orthostatic hypotension Symptomatic bradycardia CKD stage IIIb Essential hypertension Orthostatic vitals are positive Started IV fluids EKG showed junctional rhythm with first-degree AV block Stopped metoprolol Ordered echocardiogram Consulted cardiology Monitor kidney function. Avoid nephrotoxins. Renally dosed medications
[2024-10-11 13:07] LABS: Glucose Estimated Average 169 mg/dL (80-131); Hemoglobin A1C 7.5 % Hgb (4.8-6.0)
[2024-10-11] MEDS: cefTRIAXone/D5w 1gm IV premix 1 GM/50 ML BAG IV (13:07)
[2024-10-11] MEDS: RINGERS LACTATED 1000 ML 1,000 ML 75 ML IV (13:07)
--- NOTE | 2024-10-11 14:11 | ESCONSULT_ITS ---
HPI Data of Consult Requesting Physician: Ruben Manrique MD Admitting Provider: Ruben Manrique MD Attending Provider: Ruben Manrique MD Primary Care Provider: Rubia Matthews PA-C Consult Narrative History of present illness: This is a 79 old female with PMHx of HTN, DM, CKD 3B with Dr Oquendo, presenting to the ED with acute onset presyncopal episode and subjective chest discomfort. She reports 1 month of ongoing dizziness occurring at rest, mainly when she is laying flat in bed, where she feels like the room is spinning. These episodes only occur whenever she lays flat, tend to be exacerbated when she is getting up from a seated position for which she usually will pause few seconds before she feels steady enough to walk. Associated with that are brief episodes of vision blackout, lasting about 1 to 2 minutes each that occur simultaneously whenever she feels dizzy, appear to have started around the same time as the dizziness episodes, about 1 month. Also reports having a headache for 1 month. Headaches appear to be diffuse, not localized to 1 side of the head, not associated with blurry vision or other noticeable visual changes other than the above-mentioned blackouts. There is also no reported focal neurological deficits, auditory changes, generalized weakness or loss sensation. Additionally, she reports epigastric pain, likely related to acute pancreatitis as found on work-up. She has a history of hypertension, about 5 weeks ago, her PCP changed all of her medications to AMLODIPINE which she has been currently taking. In addition, she isn't complaining of urinary symptoms including burning sensation and frequent urination over the last 3 weeks. She denies poor appetite and poor fluid intake secondary to feeling unwell. However, she reports she had increased her fluid intake over the last 3 days because she feels she is dehydrated. Denies fever, chills, history of migraines, loss of consciousness, fall, trauma or head injury, leg swelling, cough, SOB, palpitations, N/V/D/C, or abnormal bleeding. On EMS arrival, she was found bradycardic with HR 40s, she also had positive orthostatics. She was seen by Dr. Pena 2+ years ago, but currently not following. She denies Of note: She reports she saw her PCP about 2 years ago for complaint of dizziness when pressing over her right neck. Symptoms occur even when she is laying flat on the right or when she turns her head to the right. States work-up at the time showed she had poor blood flow in her neck, on the right. ED COURSE: Afebrile, BP 125/68, HR 67, RR 16, satting 96% on room air. Hgb 11.9, PLT 221, no leukocytosis. Normal coag panel. Chemistry panel significant for BUN 30, CR 1.7 around baseline, GLUCOSE 150, A1c 7.5, BNP 212, lipase of 79. UA showed leukocyte esterase 2+, RBC 10, protein 3+. Troponin was negative. EKG showed sinus rhythm with first-degree block, also suggested pulmonary disease pattern. Head CT was negative for acute pathology. Carotid ultrasound showed significant stenosis of left internal carotid artery, 0-10% stenosis on the right. She was admitted for atypical chest pain, presyncope, symptoms. Currently, suspected pancreatitis, and UTI. Cardiology was consulted for chest pain, syncope. PMHx: As above. PSHx: ow back surgery 2 years ago. MEDS: AMLODIPINE 10 mg, METOPROLOL SUCCINATE 25 mg, SIMVASTATIN 40 mg, DICYCLOMINE 10 mg BID, GABAPENTIN 300 mg TID, ZITHROMAX 10 mg daily. She states she takes her medications daily as prescribed. ALLERGIES: NKA. FHx: Mom had diabetes, father of old age SH: , had 6 children (one in 40s 2/2 obesity complications), worked for 20 years in [employer], denies tobacco or alcohol or drug use. In summary: she presents with dizziness and presyncopal episodes. Her symptoms are multifactorial. Had positive orthostatic on EMS arrival, and on repeat in hospital. She has known history of carotid stenosis but never had complete evaluation outpatient, noted to have severe left carotid stenosis on US today. She is also endorsing 3 weeks of urinary symptoms, UA suggested UTI, admits to increase urination and poor oral intake. Has history of bradycardia, HR around 40s, previously seen by cardioogy but has not followed up in >2 years. Currently she is on METOPROLOL which primary team discontinued appropriately, as she was found bradycardic on EMS evaluation with HR 30s. AMLODIPINE was started by PCP recently which appears to have exacerbated her symptoms. Recommended IV hydration, hold METOPROLOL, hold AMLODIPINE resume if hypertensive (however she is normotensive now), continue treating UTI. Will follow-up with STAT ECHO. She will need outpatient follow-up for carotid stenosis and HOLTER monitor to evaluate for arrythmia. cc:: cc: Ruben Manrique MD Review of Systems Review of Systems Systems Reviewed: All systems reviewed, normal except as documented Exam Vital Signs Temp Pulse Resp BP Pulse Ox O2 Del Method 97.8 F 64 16 125/68 96 Room Air 10/11/24 09:59 10/11/24 09:59 10/11/24 09:59 10/11/24 09:59 10/11/24 09:59 10/11/24 09:59 Narrative Exam GENERAL * Normal appearing elderly female, NAD, on room air. HEENT * NCAT.?JUAN F. Oral mucosa is moist. Patent Nares NECK * Supple, nontender, no thyromegaly, no meningismus, no JVD, no step offs CHEST * RRR, no m/g/r * CTAB, no w/r/r. Symmetrical chest rise. No intercostal subcostal retraction * Atraumatic, nontender, no crepitus, symmetrical expansion. ABDOMEN * Soft, flat, mildly tender to palpation. No guarding/rebound tenderness/masses. * Bowel sounds presents EXTREMITIES * No edema/cyanosis.? SKIN * Warm and dry, no jaundice/rashes. NEUROMUSCULAR * No lumbar or midline, no CVA, no paraspinal muscle spasm or tenderness. * Moves all 4 extremities well, with full ROM and good CSM. * LEE x4, CN II-XII grossly intact. * No focal neurologic deficits. PSYCHIATRY * Normal mood and affect, cooperative, no SI or HI or hallucinations. Results Labs 10/12/24 05:49 10/12/24 05:49 Labs: Short CBC 10/11/24 Range/Units 09:58 WBC 6.1 (3.6-11.0) Thou/mm3 Hgb 11.9 L (12.0-16.0) g/dL Hct 33.1 L (36.0-46.0) % Plt Count 221 D (140-440) Thou/mm3 BMP 10/11/24 09:58 Sodium 140 Potassium 4.4 Chloride 110 H Carbon Dioxide 20.8 BUN 30 H Creatinine 1.7 H Glucose 150 H Calcium 8.8 Cardiac Enzymes 10/11/24 Range/Units 09:58 Troponin I < 0.020 (0.0-0.045) ng/mL Liver Function 10/11/24 Range/Units 09:58 Total Bilirubin 0.4 (0.3-1.2) mg/dL AST 13 (0-34) U/L ALT 10 (10-49) U/L Alkaline Phosphatase 68 (46-116) U/L Albumin 4.1 (3.4-4.8) gm/dL Urine 10/11/24 Range/Units 11:12 Urine Color Lt Yellow (Lt Yel-Yel) Urine Clarity Clear (Clear/Hazy) Urine pH 6.0 (5.0-7.0) Ur Specific Simpson 1.015 (1.001-1.035) Urine Protein 3+ A (Neg - Trace) Urine Glucose (UA) Negative (Negative) Quality Measures Quality Measures none Advance care planning discussed with:: patient Medications Home Medications and Allergies Home Medications ?Medication ?Instructions ?Recorded ?Confirmed ?Type lisinopril 20 mg tablet 40 mg PO QDAY 03/13/1810/11 History Held on 10/11/24. Instructions: on hold simvastatin 20 mg tablet 40 mg PO DAILY 03/13/1809/26 History amlodipine 10 mg tablet 10 mg PO DAILY 03/02/2309/26 History furosemide 40 mg tablet (Lasix) 40 mg PO QDAY PRN Kendall a 03/02/23 10/11/24 History Held on 09/10/24. Instructions: Resume on 09/17/24. Follow up with PCP gabapentin 300 mg capsule 300 mg PO TID 03/02/2310/11 History ezetimibe 10 mg tablet 10 mg PO QDAY 08/31/2310/11 History tirzepatide 2.5 mg/0.5 mL 2.5 mg subcut QWEEK 08/31/23 10/11/24 History subcutaneous pen injector (Mounjaro) hydrochlorothiazide 25 mg tablet 25 mg PO QDAY 5 10/11/24 History Held on 09/10/24. Instructions: Resume on 09/17/24. Follow up with PCP pantoprazole 40 mg tablet,delayed 40 mg PO QDAY 10/11/24 History release Held on 10/11/24. Instructions: not taking dicyclomine 10 mg capsule 10 mg PO BID 09/09/24 History tizanidine 4 mg tablet 4 mg PO HS PRN muscle [facility] [place] 09/09/24 10/11/24 History Held on 10/11/24. Instructions: on hold metoprolol succinate 25 mg 25 mg PO QDAY 10/11/2409/26 History tablet,extended release 24 hr Allergies Allergy/AdvReac Type Severity Reaction Status Date / Time No Known Allergies Allergy Verified 09/09/24 09:46 Visit Medications Acetaminophen (Acetaminophen 325 Mg Tablet) 650 mg PO Q6H PRN PRN Reason: PAIN 1-3 OR FEVER > 100.4 Stop: 11/10/24 12:14 Dextrose (Dextrose 50%-Water Inj 50 Ml Syringe) 25 ml IV Q15MIN PRN PRN Reason: BG 50-70 responsive npo pt Stop: 11/10/24 12:14 Dextrose (Dextrose 50%-Water Inj 50 Ml Syringe) 50 ml IV Q15MIN PRN PRN Reason: BG <50 OR BG <70 & pt unresponsive Stop: 11/10/24 12:14 Glucagon (Glucagon Inj 1 Mg Vial) 1 mg IM Q15MIN PRN PRN Reason: BG <70, and no IV access Lactated Ringer's (Lactated Ringers) 1,000 mls @ 75 mls/hr IV .[id number] [facility] Stop: 10/13/24 12:14 Last Admin: 10/11/24 13:07 Dose: 75 mls/hr Ceftriaxone Sodium/Dextrose (Rocephin/D5w 1gm Iv Premix) 1 gm in 50 mls @ 100 mls/hr IV QDAY [facility] Stop: 10/18/24 12:19 Last Admin: 10/11/24 13:07 Dose: 100 mls/hr Insulin Human Lispro (Insulin Lispro (Admelog) 1 Unit/0.01 Ml Unit) 0 unit SC [facility]; Protocol Stop: 11/10/24 16:59 Ondansetron HCl (Ondansetron Inj 2 Mg/Ml Inj 2 Ml) 4 mg IV Q6H PRN; Protocol PRN Reason: NAUSEA OR VOMITING Stop: 11/10/24 12:14 Pantoprazole Sodium (Pantoprazole 40 Mg Tablet) 40 mg PO QDAY [facility] Stop: 11/11/24 08:59 Discontinued Medications Acetaminophen (Acetaminophen 325 Mg Tablet) 650 mg PO X1 ONE Stop: 10/11/24 10:50 Last Admin: 10/11/24 11:20 Dose: 650 mg Famotidine (Famotidine Inj 10 Mg/Ml Vial 2 Ml) 20 mg IVP X1 ONE Stop: 10/11/24 10:50 Last Admin: 10/11/24 11:22 Dose: 20 mg Sodium Chloride (Ns) 1,000 mls @ 999 mls/hr IV .Q1H1M ONE Stop: 10/11/24 10:37 Last Infusion: 10/11/24 11:37 Dose: Infused Assessment & Plan Plan This is a 79 old female with PMHx of HTN, DM, CKD 3B with Dr Oquendo, presenting to the ED with acute onset presyncopal episode and subjective chest discomfort. Presyncope Bradycardia, first-degree heart block Severe left carotid stenosis Positive orthostatics 2/2 dehydration HTN Presenting with presyncope, and 1 month of dizziness, brief vision blackout, no fall or syncope or loc. She has a history of bradycardia based on previous admission, found with HR in 40s by EMS. EKG showed sinus rhythm, first-degree heart block, no significant arrhythmia. She has known history of carotid stenosis, found to have severe stenosis of left carotid on ultrasound today. Had positive orthostatics on EMS evaluation and in ED, Diastolic blood pressure drop greater than 20. Reports poor oral intake secondary to feeling ill, reports symptoms of UTI including polyuria and dysuria, UA suggest UTI. Her symptoms appear multifactorial, given the above findings. Head CT was negative for acute pathology. Recommended holding METOPROLOL given history of bradycardia and AMLODIPINE as long she is normotensive. Recommended treating UTI and IV hydrations. Will follow-up with stat echocardiogram. Will need outpatient cardiology workup including Holter monitor to check for arrhythmias and carotid stenosis workup. Chest pain On admission, she stated she had chest discomfort. On further evaluation, she denied current or previous chest pain, pressure, discomfort, SOB or palpitations. Remains asymptomatic without chest pain or discomfort. Nonreproducible pain on exam. Her symptoms are likely related to epigastric pain given pancreatitis. No history of CAD. HTN appears controlled. Troponins were negative. No acute ST changes on EKG. Low concern for cardiogenic chest pain. 4//2025 LDL 49, HDL 40, cholesterol 143, TG 269. Will continue to monitor, follow-up repeat troponin and echo. Pancreatitis UTI Chronic kidney disease T2DM Management of rest of the medical conditions as per primary team and other consultants. Thank you for the consult and allowing me to participate in the care of the patient. Cardiology will continue to follow. Case was discussed with attending, Dr. Bassett. Kassie Rangel DO PGYI Attending Provider Attestation/Addendum I have personally seen and examined the patient separately on the above date of service and discussed the plan of care with the resident. I reviewed the resident Dr. Kassie Rangel consultation progress note and agree with the resident findings and plan in the note above and have also edited the documentation to reflect my findings and plan. A 79-year-old female with a past medical history of essential hypertension, diabetes mellitus type 2, CKD stage III hyperlipidemia, diabetic neuropathy, GERD, history of significant dizziness presented to the emergency department for further evaluation of her syncopal episode along with some chest discomfort. Patient apparently has been having significant dizziness for the past 1 month, especially when laying flat on the bed that she feels the room is spinning and also with change of position from sitting to standing. Patient has to stop for a few seconds before she can walk. During the recent the episode of dizziness patient did experience a blackout with last for seconds but patient did not lose any consciousness and denies any kind of fall. Patient also says that her dizziness has been associated with some kind of blurry vision as well as headaches. Denies any kind of tinnitus or other auditory complaints or balance issues. Cardio consulted for question of bradycardia. Patient was previously in a admitted also with similar complaints and questionable bradycardia. EKG, telemetry had no evidence of any heart blocks. Patient had an echocardiogram which showed normal LV function RV function and no other major valvular abnormalities. Patient was recommended to follow-up for a carotid duplex as well as Holter monitoring as outpatient. 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 EKG showed normal sinus rhythm with first-degree AV block with no other acute ST-T changes. Vitals showed positive orthostatics with systolic blood pressure greater than 130s and decreased to 109 with standing along with heart rate increase. Hemoglobin was 9.9 platelets of 221, saturation 96% on room air. UA showed leuk esterase 2+ positive. Creatinine was 1.7 and BUN was 30. Baseline creatinine appears to be between 1.3-1.5 with CKD stage III. A1c was 7.5 and glucose was elevated at 150. NT-proBNP was only 212. Troponin was negative. Head CT was done which was negative carotid ultrasound duplex was performed with significant stenosis of left carotid artery as per the report and less than 10% on the right carotid artery. Assessment and plan: 1. Dizziness, rule out vertigo or other central causes 2. Atypical chest pain 3. Sinus bradycardia 4. Essential hypertension 5. Hyperlipidemia 6. Diabetes mellitus type 2 7. Diabetic nephropathy and neuropathy 8. CKD stage III with LUKE 9. Osteoarthritis 10. Possible vertigo As detailed noted above. EKG did not show any kind of acute etiology of any arrhythmias or any heart blocks. Patient does have sinus bradycardia but in the setting of beta-zeb. Orthostatics were positive and patient also has symptoms of possible benign positional vertigo which has been possibly exacerbated by the orthostatic hypotension. Patient was apparently recently started on amlodipine and is also on a beta-zeb at home. Recommend to give patient gentle IV fluids even though BNP is 212. Patient has mild LUKE with a creatinine of 1.7 her baseline appears to be 1.3-1.4. Recommend to check orthostatics regularly came to 12 hours until orthostatics are negative. Encourage adequate hydration and treat the UTI. Recommend to stop metoprolol XL completely given the recurrent bradycardia for the patient. Also recommend to stop amlodipine completely and can start the patient on losartan 50 mg once daily once the patient kidney function improves. Regarding her carotid duplex patient duplex images reviewed and there does not appear to be any significant stenosis of distal left carotid artery as mentioned in the report as the velocities are still only at 1 m/s. Will continue further evaluation as outpatient for now Recommend medical therapy with aspirin 81 mg once daily and high intensity statin. Regarding her atypical chest pain patient does not endorse any kind of chest pain at the present moment her chest pain symptoms have been only for few seconds on the left side she does have risk factors as noted above including her age, hypertension, diabetes mellitus hyperlipidemia and will continue workup as outpatient for any kind of ischemia. Troponins and EKG were negative here. Echo recently reviewed and showed normal LV function RV function without regional wall motion abnormalities. Lipid profile from August 2024 reviewed and cholesterol is 143 LDL is 49 and HDL is 48 TG of 269. A1c 7.2. Free T4 and TSH were normal in August 2023. Management of rest of the medical conditions as per primary team and other consultants. Thank you for the consult and allowing me to participate in the care of the patient. Cardiology will continue to follow. Trae Bassett M.D. Interventional Cardiology
--- NOTE | 2024-10-11 14:55 | PC.CC ---
Patient is a 79 year-old female who presents to the hospital for chest discomfort and presyncope. Arely CAMPOS made [id number] contact with patient. ASW introduced self, role, and reason for visit. Patient appeared alert and oriented to self, location, and situation. Patient was pleasant and engaged in initial assessment. Patient reports she lives at home with her significant other Frank. Her medical decision maker in the event she is unable to make her own medical decisions is her daughter, Nerissa Gamez . At home she ambulates independently and completes her own ADLs. However, when she feels dizzy she uses a cane on occasion. Patient does not use any DME at home. Patient receives primary care with Rubia Matthews and uses [facility] for prescription medications. Upon discharge the patient plans to return home. creative services producer to follow up with any discharge needs.
[2024-10-11] MEDS: hydrALAZINE INJ 20 MG/ML VIAL 10 MG IV (20:39)
[2024-10-11] MEDS: GABAPENTIN 300 MG CAPSULE PO (20:39)
[2024-10-12] VITALS (10 sets, daily range): BP systolic 130–172; BP diastolic 60–94; PULSE 68–80; RESP 15–23; TEMP 36.5–37.2; O2SAT 98–99; BMI 28.4
[2024-10-12] MEDS: RINGERS LACTATED 1000 ML 1,000 ML 75 ML IV ×2 (04:49→18:34)
[2024-10-12 06:23] LABS: Basophils % (Auto) 0 % (0-2.5); Eosinophils # (Auto) 0.2 Thou/mm3 (0.0-0.5); Eosinophils % (Auto) 3 % (0-10); Hematocrit 34.7 % (36.0-46.0); Hemoglobin 12.6 g/dL (12.0-16.0); Immature Granulocytes % (Auto) 0 % (0-0); Immature Granulocytes Auto 0.01 Thou/mm3 (0.00-0.00); Lymphocytes # (Auto) 1.8 Thou/mm3 (1.0-4.8); Lymphocytes % (Auto) 29 % (10-50); Mean Corpuscular HGB Conc 36.3 g/dl (31.0-37.0); Mean Corpuscular Hemoglobin 29.7 pg (25.0-35.0); Mean Corpuscular Volume 82 fL (80-100); Monocytes # (Auto) 0.4 Thou/mm3 (0.0-0.8); Monocytes % (Auto) 7 % (0-12); Neutrophils # (Auto) 3.8 Thou/mm3 (1.8-7.7); Neutrophils % (Auto) 61 % (37-80); Nucleated Red Blood Cell % 0 /100 WBC (0); Platelet Count 212 Thou/mm3 (140-440); RDW Standard Deviation 38.5 fL (36.4-46.3); Red Blood Count 4.24 Miln/mm3 (4.00-5.20); White Blood Count 6.2 Thou/mm3 (3.6-11.0)
[2024-10-12 07:01] LABS: Anion Gap 11 (7-16); BUN/Creatinine Ratio 17 Ratio (12-20); Blood Urea Nitrogen 22 mg/dL (9-23); Calcium 8.8 mg/dL (8.3-10.6); Carbon Dioxide 21.9 mMol/L (20.0-31.0); Chloride 112 mMol/L (98-107); Creatinine (Component) 1.3 mg/dL (0.6-1.3); Estimated Creatinine Clearance 36.5 mL/min (>60); Glucose 146 mg/dL (74-106); Magnesium 1.7 mg/dL (1.6-2.6); Osmolality,Calculated 295 (275-295); Phosphorous 3.7 mg/dL (2.4-5.1); Sodium 145 mMol/L (136-145); Troponin I < 0.020 ng/mL (0.0-0.045); eGFR 42 See Note
--- NOTE | 2024-10-12 08:51 | ESPR_ITS ---
Documentation for date of: 10/12/24 Subjective Subjective Interval history: No acute overnight events. Seen and examined with son at bedside. Reports feeling dizzy again while getting up to use the restroom earlier this morning, no syncope or fall. However overall feels stable, reports no worsening of symptoms. Vitals WNL. Repeat troponin negative. This morning. CR 1.3, EGFR 42, GLUCOSE 146, remainder CHEM panel WNL. CBC panel relatively normal. Reviewed carotid US images, velocities do not correlate with > 50% stenosis, unlikely she has severe stenosis as reported on US. Will continue with ASA daily, and will need close monitoring in office. Again, most liket she is dehydrated as a result of LASIX and poor oral intake. Recommended stopping LASIX on discharge. Will consider adding HCTZ for her in office. Exam Vital Signs Temp Pulse Resp BP Pulse Ox O2 Del Method 98.1 F 76 18 130/71 99 Room Air 10/12/24 04:00 10/12/24 04:00 10/12/24 04:00 10/12/24 04:00 10/12/24 04:00 10/12/24 04:00 Narrative Exam GENERAL * Normal appearing elderly female, NAD, on room air. HEENT * NCAT.?JUAN F. Oral mucosa is moist. Patent Nares NECK * Supple, nontender, no thyromegaly, no meningismus, no JVD, no step offs CHEST * RRR, no m/g/r * CTAB, no w/r/r. Symmetrical chest rise. No intercostal subcostal retraction * Atraumatic, nontender, no crepitus, symmetrical expansion. ABDOMEN * Soft, flat, mildly tender to palpation. No guarding/rebound tenderness/masses. * Bowel sounds presents EXTREMITIES * No edema/cyanosis.? SKIN * Warm and dry, no jaundice/rashes. NEUROMUSCULAR * No lumbar or midline, no CVA, no paraspinal muscle spasm or tenderness. * Moves all 4 extremities well, with full ROM and good CSM. * LEE x4, CN II-XII grossly intact. * No focal neurologic deficits. PSYCHIATRY * Normal mood and affect, cooperative, no SI or HI or hallucinations. Objective Labs 10/12/24 05:49 10/12/24 05:49 Labs: Laboratory Results - last 24 hr 10/11/24 10/11/24 10/12/24 09:58 11:12 05:49 WBC 6.1 6.2 RBC 4.02 4.24 Hgb 11.9 L 12.6 Hct 33.1 L 34.7 L MCV 82 82 MCH 29.6 29.7 MCHC 36.0 36.3 RDW Std Deviation 38.4 38.5 Plt Count 221 D 212 Neut % (Auto) 60 61 Lymph % (Auto) 30 29 [place] % (Auto) 7 7 Eos % (Auto) 3 3 Baso % (Auto) 0 0 Neut # (Auto) 3.7 3.8 Lymph # (Auto) 1.8 1.8 [place] # (Auto) 0.4 0.4 Eos # (Auto) 0.2 0.2 Baso # (Auto) 0.0 0.0 Immature Gran # (Auto) 0.02 H 0.01 H Absolute Nucleated RBC 0.00 0.00 Immature Gran % 0 0 Nucleated RBC % 0 0 PT 11.2 INR 1.0 APTT 28.4 Sodium 140 145 Potassium 4.4 4.0 Chloride 110 H 112 H Carbon Dioxide 20.8 21.9 Anion Gap 9 11 BUN 30 H 22 Creatinine 1.7 H 1.3 Estim Creat Clear Calc 28.5 L 36.5 L eGFR 31 L 42 L BUN/Creatinine Ratio 18 17 Glucose [address] Glu mg/dL 169 H Hemoglobin A1c 7.5 H Calculated Osmolality 288 295 Calcium 8.8 8.8 Corrected Calcium 8.8 Phosphorus 3.7 Magnesium 1.8 1.7 Total Bilirubin 0.4 AST 13 ALT 10 Alkaline Phosphatase 68 Troponin I < 0.020 < 0.020 B-Natriuretic Peptide 212 H Total Protein 6.2 Albumin 4.1 Globulin 2.1 L Albumin/Globulin Ratio 2.0 Lipase 79 H Ur Collection Type Clean Catch Urine Color Lt Yellow Urine Clarity Clear Urine pH 6.0 Ur Specific [place] 1.015 Urine Protein 3+ A Urine Glucose (UA) Negative Urine Ketones Negative Urine Blood Trace-Intact Urine Nitrite Negative Urine Bilirubin Negative Urine Urobilinogen (Auto) 0.2 Ur Leukocyte Esterase 2+ A Urine RBC 10 H Urine WBC 2 Ur Squamous Epith Cells 5 Urine Bacteria Rare Urine Opiates Screen Negative Urine Fentanyl Screen Negative Ur Barbiturates Screen Negative U Amphetamin/Meth Scrn Negative U Benzodiazepines Scrn Negative U Cocaine Metab Screen Negative U Marijuana (THC) Screen Negative Quality Measures Quality Measures none Advance care planning discussed with:: patient Assessment & Plan Assessment Current Active Medications: Generic Name Dose Route Start Last Admin Trade Name Freq PRN Reason Stop Dose Admin Acetaminophen 650 mg 10/11/24 12:15 10/11/24 22:52 Acetaminophen 325 Mg Tablet PO 11/10/24 12:14 650 mg Q6H PRN Administration PAIN 1-3 OR FEVER > 100.4 Dextrose 25 ml 10/11/24 12:15 Dextrose 50%-Water Inj 50 Ml Syringe IV 11/10/24 12:14 Q15MIN PRN BG 50-70 responsive npo pt Dextrose 50 ml 10/11/24 12:15 Dextrose 50%-Water Inj 50 Ml Syringe IV 11/10/24 12:14 Q15MIN PRN BG <50 OR BG <70 & pt unresponsive Glucagon 1 mg 10/11/24 12:15 Glucagon Inj 1 Mg Vial IM Q15MIN PRN BG <70, and no IV access Lactated Ringer's 1,000 mls @ 75 mls/hr 10/11/24 12:15 10/12/24 04:49 Lactated Ringers IV 10/13/24 12:14 75 mls/hr .[id number] CLIFF Administration Ceftriaxone Sodium/Dextrose 1 gm in 50 mls @ 100 mls/hr 10/11/24 12:20 10/11/24 18:49 Rocephin/D5w 1gm Iv Premix IV 10/18/24 12:19 Infused QDAY CLIFF Infusion Insulin Human Lispro 0 unit 10/11/24 17:00 10/11/24 18:49 Insulin Lispro (Admelog) 1 Unit/0.01 Ml Unit SC 11/10/24 16:59 Not Given AC [facility] Protocol Ondansetron HCl 4 mg 10/11/24 12:15 Ondansetron Inj 2 Mg/Ml Inj 2 Ml IV 11/10/24 12:14 Q6H PRN NAUSEA OR VOMITING Protocol Pantoprazole Sodium 40 mg 10/12/24 09:00 Pantoprazole 40 Mg Tablet PO 11/11/24 08:59 QDAY CLIFF Plan This is a 79 old female with PMHx of HTN, DM, CKD 3B with Dr Oquendo, presenting to the ED with acute onset presyncopal episode and subjective chest discomfort. Presyncope Bradycardia, first-degree heart block Left carotid stenosis Positive orthostatics 2/2 dehydration HTN Presenting with presyncope, and 1 month of dizziness, brief vision blackout, no fall or syncope or loc. She has a history of bradycardia based on previous admission, found with HR in 40s by EMS. EKG showed sinus rhythm, first-degree heart block, no significant arrhythmia. Carotid US reports read as significant left carotid stenosis, reviewed US, velocities do not correlated with >50% stenosis, low suspensions for significant stenosis at this time. She positive orthostatics on EMS evaluation and in ED, Diastolic blood pressure drop greater than 20. Reports poor oral intake secondary to feeling ill, she is on LASIX daily, reports symptoms of UTI including polyuria and dysuria, UA suggest UTI. 09/10/24 ECHO * Normal-sized cardiac chambers. * Normal size left ventricle excellent LV systolic function EF 60%. * Mitral valve thickening mild calcification of annulus mild mitral regurgitation. * Mild tricuspid regurgitation. * Aortic valve sclerosis no stenosis. Her symptoms appear related to dehydration. Recommended discontinuing METOPROLOL given history of bradycardia and AMLODIPINE as long she is normotensive. Recommended starting daily ASA 81 mg. Recommended treating UTI and IV hydrations. No indication for repeat ECHO at this point. Recommended discontinuing LASIX, unlikely she needs diuresis, appears fluid overload as renal function improved with fluids. Recommended repeat orthostatics today 10/12 Will start LOSARTAN 25 mg jimy, may increase dose as needed, will consider starting HCTZ in office if she has LE edema. Will need outpatient cardiology workup including Holter monitor to check for arrhythmias and carotid stenosis workup. Chest pain On admission, she stated she had chest discomfort. On further evaluation, she denied current or previous chest pain, pressure, discomfort, SOB or palpitations. Remains asymptomatic without chest pain or discomfort. Nonreproducible pain on exam. Her symptoms are likely related to epigastric pain given pancreatitis. No history of CAD. HTN appears controlled. Troponins were negative. No acute ST changes on EKG. Low concern for cardiogenic chest pain. 08/2024 LDL 49, HDL 40, cholesterol 143, TG 269. Repeat trops negative this morning, denies new or worsening chest pain or discomfort Will continue to monitor, follow-up echo. CKD She is on LASIX daily, however likely she is volume overloaded, CR improved with IVF. Believe LE edema 2/2 AMLODIPINE, however she had minimal edema on exam. Recommended d/c LASIX on discharge as above. Pancreatitis UTI Chronic kidney disease T2DM Management of rest of the medical conditions as per primary team and other consultants. Thank you for the consult and allowing me to participate in the care of the patient. Cardiology will continue to follow. Case was discussed with attending, Dr. Bassett. Kassie Rangel, PGYI Attending Provider Attestation/Addendum I have personally seen and examined the patient separately on the above date of service and discussed the plan of care with the resident. I reviewed the resident Dr. Kassie Rangel consultation progress note and agree with the resident findings and plan in the note above and have also edited the documentation to reflect my findings and plan. A 79-year-old female with a past medical history of essential hypertension, diabetes mellitus type 2, CKD stage III hyperlipidemia, diabetic neuropathy, GERD, history of significant dizziness presented to the emergency department for further evaluation of her syncopal episode along with some chest discomfort. Patient apparently has been having significant dizziness for the past 1 month, especially when laying flat on the bed that she feels the room is spinning and also with change of position from sitting to standing. Patient has to stop for a few seconds before she can walk. During the recent the episode of dizziness patient did experience a blackout with last for seconds but patient did not lose any consciousness and denies any kind of fall. Patient also says that her dizziness has been associated with some kind of blurry vision as well as headaches. Denies any kind of tinnitus or other auditory complaints or balance issues. Cardio consulted for question of bradycardia. Patient was previously in a admitted also with similar complaints and questionable bradycardia. EKG, telemetry had no evidence of any heart blocks. Patient had an echocardiogram which showed normal LV function RV function and no other major valvular abnormalities. Patient was recommended to follow-up for a carotid duplex as well as Holter monitoring as outpatient. Patient used to follow-up with primary photoengraver apprentice Elizabeth many years ago but has stopped following him few years ago. EKG showed normal sinus rhythm with first-degree AV block with no other acute ST-T changes. Vitals showed positive orthostatics with systolic blood pressure greater than 130s and decreased to 109 with standing along with heart rate increase. Hemoglobin was 9.9 platelets of 221, saturation 96% on room air. UA showed leuk esterase 2+ positive. Creatinine was 1.7 and BUN was 30. Baseline creatinine appears to be between 1.3-1.5 with CKD stage III. A1c was 7.5 and glucose was elevated at 150. NT-proBNP was only 212. Troponin was negative. Head CT was done which was negative carotid ultrasound duplex was performed with significant stenosis of left carotid artery as per the report and less than 10% on the right carotid artery. Assessment and plan: 1. Dizziness, rule out vertigo or other central causes 2. Atypical chest pain 3. Sinus bradycardia 4. Essential hypertension 5. Hyperlipidemia 6. Diabetes mellitus type 2 7. Diabetic nephropathy and neuropathy 8. CKD stage III with LUKE 9. Osteoarthritis 10. Possible vertigo As detailed noted above. EKG did not show any kind of acute etiology of any arrhythmias or any heart blocks. Patient does have sinus bradycardia but in the setting of beta-zeb. Orthostatics were positive and patient also has symptoms of possible benign positional vertigo which has been possibly exacerbated by the orthostatic hypotension. Patient was apparently recently started on amlodipine and is also on a beta-zeb at home. Recommend to give patient gentle IV fluids even though BNP is 212. Patient has mild LUKE with a creatinine of 1.7 her baseline appears to be 1.3-1.4. Recommend to check orthostatics regularly came to 12 hours until orthostatics are negative. Encourage adequate hydration and treat the UTI. Recommend to stop metoprolol XL completely given the recurrent bradycardia for the patient. Also recommend to stop amlodipine completely and can start the patient on losartan 50 mg once daily once the patient kidney function improves. Regarding her carotid duplex patient duplex images reviewed and there does not appear to be any significant stenosis of distal left carotid artery as mentioned in the report as the velocities are still only at 1 m/s. Will continue further evaluation as outpatient for now Recommend medical therapy with aspirin 81 mg once daily and high intensity statin. Regarding her atypical chest pain patient does not endorse any kind of chest pain at the present moment her chest pain symptoms have been only for few seconds on the left side she does have risk factors as noted above including her age, hypertension, diabetes mellitus hyperlipidemia and will continue workup as outpatient for any kind of ischemia. Troponins and EKG were negative here. Echo recently reviewed and showed normal LV function RV function without regional wall motion abnormalities. Lipid profile from August 2024 reviewed and cholesterol is 143 LDL is 49 and HDL is 48 TG of 269. A1c 7.2. Free T4 and TSH were normal in August 2023. Management of rest of the medical conditions as per primary team and other consultants. Thank you for the consult and allowing me to participate in the care of the patient. Cardiology will continue to follow. Trae Bassett M.D. Interventional Cardiology
[2024-10-12] MEDS: PANTOPRAZOLE 40 MG TABLET PO (09:21)
[2024-10-12] MEDS: cefTRIAXone/D5w 1gm IV premix 1 GM/50 ML BAG IV (09:21)
[2024-10-12] MEDS: ACETAMINOPHEN 325 MG TABLET 650 MG PO (09:23)
--- NOTE | 2024-10-12 09:41 | PD.RESPRO ---
Documentation for date of: 10/12/24 Subjective Subjective Interval history: No acute overnight events noted. Seen and examined at bedside and patient states that she has a headache. Will restart her home gabapentin dose of 300 mg x 1 in a.m. and x 2 in p.m. Otherwise, states that she has not had another episode of chest discomfort while in the hospital. Per cardio, plan for [employer] on Monday. Otherwise, will hold her home Lasix and continue to hold amlodipine and metoprolol. Started losartan 25 mg, aspirin 81 mg, and per cardio no need for echo at this time. Exam Vital Signs Temp Pulse Resp BP Pulse Ox O2 Del Method 98.0 F 72 16 156/60 H 98 Room Air 10/12/24 08:00 10/12/24 08:00 10/12/24 08:00 10/12/24 08:00 10/12/24 08:00 10/12/24 08:00 Narrative Exam General: AOx3, no acute distress, able to speak full sentences HEENT: NC/AT, mucous membranes moist, bilateral sclera anicteric Cardiovascular: regular rate and rhythm, S1/S2 present, no murmurs appreciated Pulmonary: clear to auscultation bilaterally, no rales/rhonchi/wheezes Abdominal: epigastric tenderness, soft, non-distended, no rebound/guarding, normal bowel sounds present Musculoskeletal: normal ROM, no peripheral edema Skin: warm and dry, intact, no rashes Neuro: CN II-XII intact, no focal deficits Objective Labs 10/12/24 05:49 10/12/24 05:49 Labs: Laboratory Results - last 24 hr 10/11/24 10/11/24 10/12/24 09:58 11:12 05:49 WBC 6.1 6.2 RBC 4.02 4.24 Hgb 11.9 L 12.6 Hct 33.1 L 34.7 L MCV 82 82 MCH 29.6 29.7 MCHC 36.0 36.3 RDW Std Deviation 38.4 38.5 Plt Count 221 D 212 Neut % (Auto) 60 61 Lymph % (Auto) 30 29 [place] % (Auto) 7 7 Eos % (Auto) 3 3 Baso % (Auto) 0 0 Neut # (Auto) 3.7 3.8 Lymph # (Auto) 1.8 1.8 [place] # (Auto) 0.4 0.4 Eos # (Auto) 0.2 0.2 Baso # (Auto) 0.0 0.0 Immature Gran # (Auto) 0.02 H 0.01 H Absolute Nucleated RBC 0.00 0.00 Immature Gran % 0 0 Nucleated RBC % 0 0 PT 11.2 INR 1.0 APTT 28.4 Sodium 140 145 Potassium 4.4 4.0 Chloride 110 H 112 H Carbon Dioxide 20.8 21.9 Anion Gap 9 11 BUN 30 H 22 Creatinine 1.7 H 1.3 Estim Creat Clear Calc 28.5 L 36.5 L eGFR 31 L 42 L BUN/Creatinine Ratio 18 17 Glucose [address] Glu mg/dL 169 H Hemoglobin A1c 7.5 H Calculated Osmolality 288 295 Calcium 8.8 8.8 Corrected Calcium 8.8 Phosphorus 3.7 Magnesium 1.8 1.7 Total Bilirubin 0.4 AST 13 ALT 10 Alkaline Phosphatase 68 Troponin I < 0.020 < 0.020 B-Natriuretic Peptide 212 H Total Protein 6.2 Albumin 4.1 Globulin 2.1 L Albumin/Globulin Ratio 2.0 Lipase 79 H Ur Collection Type Clean Catch Urine Color Lt Yellow Urine Clarity Clear Urine pH 6.0 Ur Specific [place] 1.015 Urine Protein 3+ A Urine Glucose (UA) Negative Urine Ketones Negative Urine Blood Trace-Intact Urine Nitrite Negative Urine Bilirubin Negative Urine Urobilinogen (Auto) 0.2 Ur Leukocyte Esterase 2+ A Urine RBC 10 H Urine WBC 2 Ur Squamous Epith Cells 5 Urine Bacteria Rare Urine Opiates Screen Negative Urine Fentanyl Screen Negative Ur Barbiturates Screen Negative U Amphetamin/Meth Scrn Negative U Benzodiazepines Scrn Negative U Cocaine Metab Screen Negative U Marijuana (THC) Screen Negative Quality Measures Quality Measures none Advance care planning discussed with:: patient and child Assessment & Plan Assessment Current Active Medications: Generic Name Dose Route Start Last Admin Trade Name Freq PRN Reason Stop Dose Admin Acetaminophen 650 mg 10/11/24 12:15 10/12/24 09:23 Acetaminophen 325 Mg Tablet PO 11/10/24 12:14 650 mg Q6H PRN Administration PAIN 1-3 OR FEVER > 100.4 Atorvastatin Calcium 20 mg 10/12/24 21:00 Atorvastatin Calcium 20 Mg Tablet PO 11/11/24 20:59 HS CLIFF Dextrose 25 ml 10/11/24 12:15 Dextrose 50%-Water Inj 50 Ml Syringe IV 11/10/24 12:14 Q15MIN PRN BG 50-70 responsive npo pt Dextrose 50 ml 10/11/24 12:15 Dextrose 50%-Water Inj 50 Ml Syringe IV 11/10/24 12:14 Q15MIN PRN BG <50 OR BG <70 & pt unresponsive Gabapentin 300 mg 10/12/24 14:00 Gabapentin 300 Mg Capsule PO 11/11/24 13:59 TID CLIFF Glucagon 1 mg 10/11/24 12:15 Glucagon Inj 1 Mg Vial IM Q15MIN PRN BG <70, and no IV access Lactated Ringer's 1,000 mls @ 75 mls/hr 10/11/24 12:15 10/12/24 04:49 Lactated Ringers IV 10/13/24 12:14 75 mls/hr .[id number] CLIFF Administration Ceftriaxone Sodium/Dextrose 1 gm in 50 mls @ 100 mls/hr 10/11/24 12:20 10/12/24 09:21 Rocephin/D5w 1gm Iv Premix IV 10/18/24 12:19 100 mls/hr QDAY CLIFF Administration Insulin Human Lispro 0 unit 10/11/24 17:00 10/12/24 09:11 Insulin Lispro (Admelog) 1 Unit/0.01 Ml Unit SC 11/10/24 16:59 Not Given AC [facility] Protocol Ondansetron HCl 4 mg 10/11/24 12:15 Ondansetron Inj 2 Mg/Ml Inj 2 Ml IV 11/10/24 12:14 Q6H PRN NAUSEA OR VOMITING Protocol Pantoprazole Sodium 40 mg 10/12/24 09:00 10/12/24 09:21 Pantoprazole 40 Mg Tablet PO 11/11/24 08:59 40 mg QDAY CLIFF Administration Plan Rachel Gamez is a 79-year-old female with a past medical history of hypertension, type 2 diabetes mellitus on Mounjaro, and CKD IIIb (follows Dr. Oquendo) who is admitted for further management of chest discomfort and presyncope. #Atypical chest pain #? Unstable angina For the past month patient has been experiencing atypical chest pain described as substernal pressure/tightness that occurs with activity and rest with associated shortness of breath, headache, dizziness, and temporary vision loss. Of note, she does endorse blood pressure readings as high as the 200s but here in the ED initial BP was 125/68. She was evaluated by cardiology during previous admission for dizziness and found to be orthostatic positive at that time. However, EKG in field noted heart rate in 40s with first degree AV block. Echo DC'd per cardio. Troponins negative, BNP 212, EKG in ED showed NSR with first degree block, HR 60s. A1c 7.5%. Lipid panel 09/16/2024 showed LDL 49, HDL 40, cholesterol 143, TG 269. ? Cardiology consulted, appreciate recommendations ? Monitor on telemetry ? Aspirin 81 mg p.o. daily, atorvastatin 20 mg p.o. daily #Presyncope #Dizziness #Sinus bradycardia #First degree heart block #Left internal carotid artery stenosis Carotid US: R ICA demonstrates 0-10% stenosis; L ICA suspicious for significant stenosis in distal L ICA She was evaluated by cardiology during previous admission for dizziness and found to be orthostatic positive at that time. However, EKG in field noted heart rate in 40s with first degree AV block. EKG in ED showed NSR with first degree block, HR 60s. ? Cardiology consulted, appreciate recommendations ? Aspirin 81 mg p.o. daily ? Follow-up orthostatic vitals ? Hold metoprolol, amlodipine, and lasix #Pancreatitis Epigastric pain with lipase 79. Unable to perform CTA abdomen/pelvis given kidney disease. ? LR at 75 cc/hr ? Cardiac diet as tolerated #Urinary tract infection Endorses dysuria. UA showed 3+ protein, 2+ LE, 10 RBC, rare bacteria. ? Ceftriaxone 1 g IV daily ? Urine culture #Chronic kidney disease Follows Dr. Oquendo, currently no acute disease. BUN 30, Cr 1.7 on admission. ? Avoid nephrotoxic agents, renally dose medications #Type 2 diabetes mellitus on Mounjaro A1c 7.5% on 10/11/2024. ? SSI ? Accu-Checks ACHS ? Hypoglycemic protocol in place #Primary hypertension Hold home metoprolol succinate 25 mg daily and amlodipine 10 mg daily ? Losartan 25 mg p.o. daily and uptitrate as needed #Hyperlipidemia Lipid panel 09/16/2024 showed LDL 49, HDL 40, cholesterol 143, TG 269. ? Atorvastatin as above ? Ezetimibe 10 mg p.o. daily Hospital management: Disposition: pending cardio recs, UTI on antibiotics Fluids: LR at 75 cc/hr Diet: cardiac Lines: PIV DVT prophylaxis: SCDs GI prophylaxis: pantoprazole 40 mg p.o. daily Carvalho: not indicated CODE STATUS: full code ----- Plan discussed with attending physician Dr. Burton Sánchez MD PGY-1 Internal Medicine Attending Provider Attestation/Addendum I reviewed labs, imaging, EKG, home medications and prior available records. Face to face evaluation was performed by me. I have personally examined the patient and discussed assessment and plan with the IM team. I reviewed the resident note and agree with the plan with exceptions as below. Presyncope Orthostatic hypotension Symptomatic bradycardia CKD stage IIIb Essential hypertension Orthostatic vitals are positive Started IV fluids EKG showed junctional rhythm with first-degree AV block Stopped metoprolol Ordered echocardiogram Consulted cardiology: Will plan for cardiac catheterization on Monday Monitor kidney function: Creatinine improved. Avoid nephrotoxins. Renally dosed medications
[2024-10-12] MEDS: LOSARTAN POTASSIUM 25 MG TABLET PO (11:13)
[2024-10-12] MEDS: ASPIRIN EC 81 MG TABEC PO (11:14)
[2024-10-12] MEDS: INSULIN LISPRO (AdmeLOG) 1 UNIT/0.01 ML UNIT SC (11:41)
[2024-10-12] MEDS: GABAPENTIN 300 MG CAPSULE PO ×2 (14:55→21:09)
--- NOTE | 2024-10-12 16:12 | PC.SS ---
Per Dr. Manrique, patient remains hospitalized for cath-lab on 10/14/24.
[2024-10-12] MEDS: ATORVASTATIN CALCIUM 20 MG TABLET PO (20:11)
[2024-10-13] VITALS (8 sets, daily range): BP systolic 131–162; BP diastolic 59–76; PULSE 62–88; RESP 17–20; TEMP 36.3–37; O2SAT 97–99; BMI 28.4
[2024-10-13] MEDS: GABAPENTIN 300 MG CAPSULE PO ×2 (05:27→14:33)
[2024-10-13 05:41] LABS: Basophils % (Auto) 0 % (0-2.5); Eosinophils # (Auto) 0.2 Thou/mm3 (0.0-0.5); Eosinophils % (Auto) 3 % (0-10); Hematocrit 34.6 % (36.0-46.0); Hemoglobin 12.1 g/dL (12.0-16.0); Immature Granulocytes % (Auto) 0 % (0-0); Immature Granulocytes Auto 0.01 Thou/mm3 (0.00-0.00); Lymphocytes # (Auto) 1.9 Thou/mm3 (1.0-4.8); Lymphocytes % (Auto) 30 % (10-50); Mean Corpuscular Hemoglobin 29.5 pg (25.0-35.0); Mean Corpuscular Volume 84 fL (80-100); Monocytes # (Auto) 0.4 Thou/mm3 (0.0-0.8); Monocytes % (Auto) 7 % (0-12); Neutrophils # (Auto) 3.6 Thou/mm3 (1.8-7.7); Neutrophils % (Auto) 59 % (37-80); Nucleated Red Blood Cell % 0 /100 WBC (0); Platelet Count 208 Thou/mm3 (140-440); RDW Standard Deviation 40.1 fL (36.4-46.3); White Blood Count 6.1 Thou/mm3 (3.6-11.0)
[2024-10-13 06:00] LABS: Anion Gap 8 (7-16); BUN/Creatinine Ratio 15 Ratio (12-20); Blood Urea Nitrogen 18 mg/dL (9-23); Calcium 8.5 mg/dL (8.3-10.6); Carbon Dioxide 24.4 mMol/L (20.0-31.0); Chloride 112 mMol/L (98-107); Creatinine (Component) 1.2 mg/dL (0.6-1.3); Estimated Creatinine Clearance 39.5 mL/min (>60); Glucose 152 mg/dL (74-106); Magnesium 1.6 mg/dL (1.6-2.6); Osmolality,Calculated 291 (275-295); Phosphorous 3.3 mg/dL (2.4-5.1); Potassium 4.4 mMol/L (3.4-5.1); Sodium 144 mMol/L (136-145); eGFR 47 See Note
--- NOTE | 2024-10-13 07:02 | PD.RESPRO ---
Documentation for date of: 10/13/24 Exam Vital Signs Temp Pulse Resp BP Pulse Ox O2 Del Method 97.6 F 65 17 131/59 H 97 Room Air 10/13/24 04:00 10/13/24 04:00 10/13/24 04:00 10/13/24 04:00 10/13/24 04:00 10/13/24 04:00 Objective Labs 10/13/24 04:38 10/13/24 04:38 Labs: Laboratory Results - last 24 hr 10/13/24 04:38 WBC 6.1 RBC 4.10 Hgb 12.1 Hct 34.6 L MCV 84 MCH 29.5 MCHC 35.0 RDW Std Deviation 40.1 Plt Count 208 Neut % (Auto) 59 Lymph % (Auto) 30 [place] % (Auto) 7 Eos % (Auto) 3 Baso % (Auto) 0 Neut # (Auto) 3.6 Lymph # (Auto) 1.9 [place] # (Auto) 0.4 Eos # (Auto) 0.2 Baso # (Auto) 0.0 Immature Gran # (Auto) 0.01 H Absolute Nucleated RBC 0.00 Immature Gran % 0 Nucleated RBC % 0 Sodium 144 Potassium 4.4 Chloride 112 H Carbon Dioxide 24.4 Anion Gap 8 BUN 18 Creatinine 1.2 Estim Creat Clear Calc 39.5 L eGFR 47 L BUN/Creatinine Ratio 15 Glucose 152 H Calculated Osmolality 291 Calcium 8.5 Phosphorus 3.3 Magnesium 1.6 Quality Measures Quality Measures none Assessment & Plan Assessment Current Active Medications: Generic Name Dose Route Start Last Admin Trade Name Freq PRN Reason Stop Dose Admin Acetaminophen 650 mg 10/11/24 12:15 10/12/24 09:23 Acetaminophen 325 Mg Tablet PO 11/10/24 12:14 650 mg Q6H PRN Administration PAIN 1-3 OR FEVER > 100.4 Aspirin 81 mg 10/12/24 11:00 10/12/24 11:14 Aspirin Ec 81 Mg Tabec PO 11/11/24 10:59 81 mg QDAY CLIFF Administration Atorvastatin Calcium 20 mg 10/12/24 21:00 10/12/24 20:11 Atorvastatin Calcium 20 Mg Tablet PO 11/11/24 20:59 20 mg HS CLIFF Administration Dextrose 25 ml 10/11/24 12:15 Dextrose 50%-Water Inj 50 Ml Syringe IV 11/10/24 12:14 Q15MIN PRN BG 50-70 responsive npo pt Dextrose 50 ml 10/11/24 12:15 Dextrose 50%-Water Inj 50 Ml Syringe IV 11/10/24 12:14 Q15MIN PRN BG <50 OR BG <70 & pt unresponsive Ezetimibe 10 mg 10/13/24 09:00 Ezetimibe 10 Mg Tablet PO 11/12/24 08:59 QDAY CLIFF Gabapentin 300 mg 10/12/24 14:00 10/13/24 05:27 Gabapentin 300 Mg Capsule PO 11/11/24 13:59 300 mg TID CLIFF Administration Glucagon 1 mg 10/11/24 12:15 Glucagon Inj 1 Mg Vial IM Q15MIN PRN BG <70, and no IV access Lactated Ringer's 1,000 mls @ 75 mls/hr 10/11/24 12:15 10/12/24 18:34 Lactated Ringers IV 10/13/24 12:14 75 mls/hr .[id number] CLIFF Administration Ceftriaxone Sodium/Dextrose 1 gm in 50 mls @ 100 mls/hr 10/11/24 12:20 10/12/24 09:21 Rocephin/D5w 1gm Iv Premix IV 10/18/24 12:19 100 mls/hr QDAY CLIFF Administration Magnesium Sulfate 4 gm in 50 mls @ 12.5 mls/hr 10/13/24 06:59 Magnesium Sulfate Ivpb IV 10/13/24 10:58 X1 ONE Insulin Human Lispro 0 unit 10/11/24 17:00 10/12/24 17:00 Insulin Lispro (Admelog) 1 Unit/0.01 Ml Unit SC 11/10/24 16:59 Not Given AC CLIFF Protocol Losartan Potassium 25 mg 10/12/24 11:00 10/12/24 11:13 Losartan Potassium 25 Mg Tablet PO 11/11/24 10:59 25 mg QDAY CLIFF Administration Ondansetron HCl 4 mg 10/11/24 12:15 Ondansetron Inj 2 Mg/Ml Inj 2 Ml IV 11/10/24 12:14 Q6H PRN NAUSEA OR VOMITING Protocol Pantoprazole Sodium 40 mg 10/12/24 09:00 10/12/24 09:21 Pantoprazole 40 Mg Tablet PO 11/11/24 08:59 40 mg QDAY CLIFF Administration
--- NOTE | 2024-10-13 07:15 | PC.SS ---
SS follow up note; [employer] Internship tomorrow. Patient will discharge back home when medically cleared.
[2024-10-13] MEDS: Magnesium Sulfate 4 GM Ivpb 4 GM/50 ML BAG IV (07:51)
[2024-10-13] MEDS: cefTRIAXone/D5w 1gm IV premix 1 GM/50 ML BAG IV (07:51)
[2024-10-13] MEDS: LOSARTAN POTASSIUM 25 MG TABLET PO ×2 (07:51→08:54)
[2024-10-13] MEDS: PANTOPRAZOLE 40 MG TABLET PO (07:52)
[2024-10-13] MEDS: ASPIRIN EC 81 MG TABEC PO (07:52)
[2024-10-13] MEDS: EZETIMIBE 10 MG TABLET PO (07:52)
--- NOTE | 2024-10-13 07:56 | ESPR_ITS ---
Documentation for date of: 10/13/24 Subjective Subjective Interval history: No acute overnight events. Feels better today, she walked to the restroom this AM without dizziness. Orthostatics were positive yesterday, although still appears dry on exam, will repeat orthostatics again today. BP 131/59, HR 65, satting well on room air. Denies fever, chills, headaches, chest pain, sob, cough, GI or urinary symptoms. Renal function continues to improve with fluids, CR 1.2, BUN 18. Remainder of CHEM panel and CBC are normal. Recommended additional fluids prior to discharge, repeat orthostatics, continue LOSARTAN 25 mg daily and ASPIRIN daily. On discharge, discontinue home LASIX, AMLODIPINE, and METOPROLOL. Recommended high intensity statin given that her lipids are up. Recommended to follow-up in office 1 to 2 weeks after discharge. Exam Vital Signs Temp Pulse Resp BP Pulse Ox O2 Del Method 97.6 F 65 17 131/59 H 97 Room Air 10/13/24 04:00 10/13/24 07:51 10/13/24 04:00 10/13/24 07:51 10/13/24 04:00 10/13/24 04:00 Narrative Exam GENERAL * Normal appearing elderly female, NAD, on room air. HEENT * NCAT.?JUAN F. Oral mucosa is dry. Patent Nares NECK * Supple, nontender, no thyromegaly, no meningismus, no JVD, no step offs CHEST * RRR, no m/g/r * CTAB, no w/r/r. Symmetrical chest rise. No intercostal subcostal retraction * Atraumatic, nontender, no crepitus, symmetrical expansion. ABDOMEN * Soft, flat, mildly tender to palpation. No guarding/rebound tenderness/masses. * Bowel sounds presents EXTREMITIES * No edema/cyanosis.? SKIN * Warm and dry, no jaundice/rashes. NEUROMUSCULAR * No lumbar or midline, no CVA, no paraspinal muscle spasm or tenderness. * Moves all 4 extremities well, with full ROM and good CSM. * LEE x4, CN II-XII grossly intact. * No focal neurologic deficits. PSYCHIATRY * Normal mood and affect, cooperative, no SI or HI or hallucinations. Objective Labs 10/13/24 04:38 10/13/24 04:38 Labs: Laboratory Results - last 24 hr 10/13/24 04:38 WBC 6.1 RBC 4.10 Hgb 12.1 Hct 34.6 L MCV 84 MCH 29.5 MCHC 35.0 RDW Std Deviation 40.1 Plt Count 208 Neut % (Auto) 59 Lymph % (Auto) 30 [place] % (Auto) 7 Eos % (Auto) 3 Baso % (Auto) 0 Neut # (Auto) 3.6 Lymph # (Auto) 1.9 [place] # (Auto) 0.4 Eos # (Auto) 0.2 Baso # (Auto) 0.0 Immature Gran # (Auto) 0.01 H Absolute Nucleated RBC 0.00 Immature Gran % 0 Nucleated RBC % 0 Sodium 144 Potassium 4.4 Chloride 112 H Carbon Dioxide 24.4 Anion Gap 8 BUN 18 Creatinine 1.2 Estim Creat Clear Calc 39.5 L eGFR 47 L BUN/Creatinine Ratio 15 Glucose 152 H Calculated Osmolality 291 Calcium 8.5 Phosphorus 3.3 Magnesium 1.6 Quality Measures Quality Measures none Advance care planning discussed with:: patient Assessment & Plan Assessment Current Active Medications: Generic Name Dose Route Start Last Admin Trade Name Freq PRN Reason Stop Dose Admin Acetaminophen 650 mg 10/11/24 12:15 10/12/24 09:23 Acetaminophen 325 Mg Tablet PO 11/10/24 12:14 650 mg Q6H PRN Administration PAIN 1-3 OR FEVER > 100.4 Aspirin 81 mg 10/12/24 11:00 10/13/24 07:52 Aspirin Ec 81 Mg Tabec PO 11/11/24 10:59 81 mg QDAY CLIFF Administration Atorvastatin Calcium 20 mg 10/12/24 21:00 10/12/24 20:11 Atorvastatin Calcium 20 Mg Tablet PO 11/11/24 20:59 20 mg HS CLIFF Administration Dextrose 25 ml 10/11/24 12:15 Dextrose 50%-Water Inj 50 Ml Syringe IV 11/10/24 12:14 Q15MIN PRN BG 50-70 responsive npo pt Dextrose 50 ml 10/11/24 12:15 Dextrose 50%-Water Inj 50 Ml Syringe IV 11/10/24 12:14 Q15MIN PRN BG <50 OR BG <70 & pt unresponsive Ezetimibe 10 mg 10/13/24 09:00 10/13/24 07:52 Ezetimibe 10 Mg Tablet PO 11/12/24 08:59 10 mg QDAY CLIFF Administration Gabapentin 300 mg 10/12/24 14:00 10/13/24 05:27 Gabapentin 300 Mg Capsule PO 11/11/24 13:59 300 mg TID CLIFF Administration Glucagon 1 mg 10/11/24 12:15 Glucagon Inj 1 Mg Vial IM Q15MIN PRN BG <70, and no IV access Lactated Ringer's 1,000 mls @ 75 mls/hr 10/11/24 12:15 10/12/24 18:34 Lactated Ringers IV 10/13/24 12:14 75 mls/hr .[id number] CLIFF Administration Ceftriaxone Sodium/Dextrose 1 gm in 50 mls @ 100 mls/hr 10/11/24 12:20 10/13/24 07:51 Rocephin/D5w 1gm Iv Premix IV 10/18/24 12:19 100 mls/hr QDAY CLIFF Administration Magnesium Sulfate 4 gm in 50 mls @ 12.5 mls/hr 10/13/24 06:59 10/13/24 07:51 Magnesium Sulfate Ivpb IV 10/13/24 10:58 12.5 mls/hr X1 ONE Administration Insulin Human Lispro 0 unit 10/11/24 17:00 10/13/24 07:45 Insulin Lispro (Admelog) 1 Unit/0.01 Ml Unit SC 11/10/24 16:59 Not Given AC CLIFF Protocol Losartan Potassium 25 mg 10/12/24 11:00 10/13/24 07:51 Losartan Potassium 25 Mg Tablet PO 11/11/24 10:59 25 mg QDAY CLIFF Administration Ondansetron HCl 4 mg 10/11/24 12:15 Ondansetron Inj 2 Mg/Ml Inj 2 Ml IV 11/10/24 12:14 Q6H PRN NAUSEA OR VOMITING Protocol Pantoprazole Sodium 40 mg 10/12/24 09:00 10/13/24 07:52 Pantoprazole 40 Mg Tablet PO 11/11/24 08:59 40 mg QDAY CLIFF Administration Plan This is a 79 old female with PMHx of HTN, DM, CKD 3B with Dr Oquendo, presenting to the ED with acute onset presyncopal episode and subjective chest discomfort. Presyncope Bradycardia, first-degree heart block Left carotid stenosis Positive orthostatics 2/2 dehydration HTN Presenting with presyncope, and 1 month of dizziness, brief vision blackout, no fall or syncope or loc. She has a history of bradycardia based on previous admission, found with HR in 40s by EMS. EKG showed sinus rhythm, first-degree heart block, no significant arrhythmia. Carotid US reports read as significant left carotid stenosis, reviewed US, velocities do not correlated with >50% stenosis, low suspensions for significant stenosis at this time. She positive orthostatics on EMS evaluation and in ED, Diastolic blood pressure drop greater than 20. Reports poor oral intake secondary to feeling ill, she is on LASIX daily, reports symptoms of UTI including polyuria and dysuria, UA suggest UTI. 09/10/24 ECHO * Normal-sized cardiac chambers. * Normal size left ventricle excellent LV systolic function EF 60%. * Mitral valve thickening mild calcification of annulus mild mitral regurgitation. * Mild tricuspid regurgitation. * Aortic valve sclerosis no stenosis. Her symptoms appear related to dehydration. Overall, improving, reports no dizziness with getting up this morning. BP 131/69 with LOSARTAN 25 mg, HR 65. Recommended discontinuing METOPROLOL, AMLODIPINE, and LASIX on discharge. Discharged with ASPIRIN daily, high intensity statin, and LOSARTAN 25 mg daily. Recommended additional fluids prior to discharge, repeat orthostatics possible. Follow-up in office 1 to 2 weeks for Holter monitor and further carotid stenosis workup. Chest pain On admission, she stated she had chest discomfort. On further evaluation, she denied current or previous chest pain, pressure, discomfort, SOB or palpitations. Remains asymptomatic without chest pain or discomfort. Nonreproducible pain on exam. Her symptoms are likely related to epigastric pain given pancreatitis. No history of CAD. HTN appears controlled. Troponins were negative. No acute ST changes on EKG. Low concern for cardiogenic chest pain. 08/2024 LDL 49, HDL 40, cholesterol 143, TG 269. Repeat trops negative this morning, denies new or worsening chest pain or discomfort. Will continue to monitor, follow-up echo. CKD She is on LASIX daily, however likely she is volume overloaded, CR improved with IVF. Believe LE edema 2/2 AMLODIPINE, however she had minimal edema on exam. Recommended d/c LASIX on discharge as above. Pancreatitis UTI Chronic kidney disease T2DM Management of rest of the medical conditions as per primary team and other consultants. Thank you for the consult and allowing me to participate in the care of the patient. Cardiology will continue to follow. Case was discussed with attending, Dr. Bassett. Kassie Rangel DO PGYI Attending Provider Attestation/Addendum I have personally seen and examined the patient separately on the above date of service and discussed the plan of care with the resident. I reviewed the resident Dr. Kassie Rangel consultation progress note and agree with the resident findings and plan in the note above and have also edited the documentation to reflect my findings and plan. A 79-year-old female with a past medical history of essential hypertension, diabetes mellitus type 2, CKD stage III hyperlipidemia, diabetic neuropathy, GERD, history of significant dizziness presented to the emergency department for further evaluation of her syncopal episode along with some chest discomfort. Patient apparently has been having significant dizziness for the past 1 month, especially when laying flat on the bed that she feels the room is spinning and also with change of position from sitting to standing. Patient has to stop for a few seconds before she can walk. During the recent the episode of dizziness patient did experience a blackout with last for seconds but patient did not lose any consciousness and denies any kind of fall. Patient also says that her dizziness has been associated with some kind of blurry vision as well as headaches. Denies any kind of tinnitus or other auditory complaints or balance issues. Cardio consulted for question of bradycardia. Patient was previously in a admitted also with similar complaints and questionable bradycardia. EKG, telemetry had no evidence of any heart blocks. Patient had an echocardiogram which showed normal LV function RV function and no other major valvular abnormalities. Patient was recommended to follow-up for a carotid duplex as well as Holter monitoring as outpatient. Patient used to follow-up with primary social media marketer Elizabeth many years ago but has stopped following him few years ago. EKG showed normal sinus rhythm with first-degree AV block with no other acute ST-T changes. Vitals showed positive orthostatics with systolic blood pressure greater than 130s and decreased to 109 with standing along with heart rate increase. Hemoglobin was 9.9 platelets of 221, saturation 96% on room air. UA showed leuk esterase 2+ positive. Creatinine was 1.7 and BUN was 30. Baseline creatinine appears to be between 1.3-1.5 with CKD stage III. A1c was 7.5 and glucose was elevated at 150. NT-proBNP was only 212. Troponin was negative. Head CT was done which was negative carotid ultrasound duplex was performed with significant stenosis of left carotid artery as per the report and less than 10% on the right carotid artery. Assessment and plan: 1. Dizziness, rule out vertigo or other central causes 2. Atypical chest pain 3. Sinus bradycardia 4. Essential hypertension 5. Hyperlipidemia 6. Diabetes mellitus type 2 7. Diabetic nephropathy and neuropathy 8. CKD stage III with LUKE 9. Osteoarthritis 10. Possible vertigo As detailed noted above. EKG did not show any kind of acute etiology of any arrhythmias or any heart blocks. Patient does have sinus bradycardia but in the setting of beta-zeb. Orthostatics were positive and patient also has symptoms of possible benign positional vertigo which has been possibly exacerbated by the orthostatic hypotension. Patient was apparently recently started on amlodipine and is also on a beta-zeb at home. Recommend to give patient gentle IV fluids even though BNP is 212. Patient has mild LUKE with a creatinine of 1.7 her baseline appears to be 1.3-1.4. Recommend to check orthostatics regularly came to 12 hours until orthostatics are negative. Encourage adequate hydration and treat the UTI. Recommend to stop metoprolol XL completely given the recurrent bradycardia for the patient. Also recommend to stop amlodipine completely and can start the patient on losartan 50 mg once daily once the patient kidney function improves. ----Orthostatics negative as per the nursing team. Patient had orthostatic hypotension secondary to hypovolemia but could also have a component of autonomic neuropathy. Patient was recommended to hydrate herself well and taken of salt intake. Recommended isometric exercises along with dynamic compression stockings of 30 to 40 mmHg for now. Nursing team recommended to give patient the education material for orthostatic hypotension Regarding her carotid duplex patient duplex images reviewed and there does not appear to be any significant stenosis of distal left carotid artery as mentioned in the report as the velocities are still only at 1 m/s. Will continue further evaluation as outpatient for now Recommend medical therapy with aspirin 81 mg once daily and high intensity statin. Regarding her atypical chest pain patient does not endorse any kind of chest pain at the present moment her chest pain symptoms have been only for few seconds on the left side she does have risk factors as noted above including her age, hypertension, diabetes mellitus hyperlipidemia and will continue workup as outpatient for any kind of ischemia. Troponins and EKG were negative here. Echo recently reviewed and showed normal LV function RV function without regional wall motion abnormalities. Lipid profile from August 2024 reviewed and cholesterol is 143 LDL is 49 and HDL is 48 TG of 269. A1c 7.2. Free T4 and TSH were normal in August 2023. Management of rest of the medical conditions as per primary team and other consultants. Thank you for the consult and allowing me to participate in the care of the patient. Cardiology will continue to follow. Trae Bassett M.D. Interventional Cardiology
--- NOTE | 2024-10-13 07:59 | ESDS_ITS ---
Planned Discharge Date 10/13/24 DS: Providers Provider Date of admission: 10/11/24 12:14 Primary care physician: Rubia Matthews PA-C Admitting Provider: Ruben Manrique MD Attending Provider on Admission: Ruben Manrique MD Consults: 10/11/24 13:02 Consult to Cardiology Routine Comment: Atypical chest pain Consulting Provider: Trae Bassett 10/13/24 07:10 Referral Physical Therapy Routine Comment: Physician Instructions: Attending Provider on DC: Sandy Davis MD Discharging Provider: Sandy Davis MD DS: Diagnosis Problem List Completed Was Problem List Reviewed/Reconciled?: Yes Hospital Course Hospital Course Hospital course: Ms. Gamez is a 79-year-old female with a past medical history of hypertension, type 2 diabetes mellitus on Mounjaro, and CKD IIIb (follows Dr. Oquendo) was admitted for further management of chest discomfort and presyncope on 10/11/24. For the past month patient has been experiencing atypical chest pain described as substernal pressure/tightness that occurs with activity and rest with associated shortness of breath, headache, dizziness, and temporary vision loss. Troponins were negative, BNP mildly elevated, initial EKG in the ED showed NSR with 1st degree block with HR 60s but prior to arrival noted to be in the 40s. A1c 7.5%. Last lipid panel showed LDL at 49 and TG at 269. Carotid US showed R ICA having 0-10% stenosis and L ICA suspicious for significant stenosis in distal L ICA. In addition, patient was complaining of dysuria, but UCx showed no growth, and discontinued IV Abx. Throughout hospital stay, patient has has positive orthostatic vitals despite discontinuation of most of her anti- hypertensives. Per cardiology, no significant stenosis of distal left carotid artery noted as per report d/t velocities still being at 1m/s. Cardiology was consulted and recommended to have outpatient cardiology follow-up for more work- up including holter monitor testing. Patient seen and examined at beside. Patient seen and examined at bedside. Patient denies any complaints at this time, and will be medically safe to be discharged after re-evaluation of negative orthostatic vitals. ? Start taking Aspirin 81mg daily, Atorvastatin 40mg HS, and Losartan 50mg daily - Continue taking all other home medications as prescribed - Stop taking: Amlodipine, Simvastatin, Lasix, HCTZ, Lisinopril, Metoprolol Succinate, Pantoprazole, and Tizanidine ? Follow-up with PCP within 1-2 weeks of discharge ? If you do not have a PCP, you can follow-up at the [facility] (you can call [phone] to make an appointment) ? If you wish to follow-up with Dr. Sánchez, schedule appointment on Monday afternoons ? Return to ED if symptoms worsen or recur ? Please follow-up with Cardiology, Dr. Bassett within 1-2 weeks of discharge Trae Bassett M.D. [address] [facility], [place] [address]. Hospital discharge diagnoses treated during hospital stay: #Atypical chest pain #? Unstable angina #Presyncope #Dizziness #Sinus bradycardia #First degree heart block #Left internal carotid artery stenosis #Pancreatitis #Urinary tract infection #Chronic kidney disease #Type 2 diabetes mellitus on Mounjaro #Primary hypertension #Hyperlipidemia Patient's plan and care discussed with my attending, Dr. Manrique. Sandy Davis, PGY-2 Status at Discharge Cognitive/behavioral status at discharge: stable Time Spent with Patient Time attestation: Total time spent providing and/or coordinating discharge services: 35 Time spent: Greater than 30 minutes Exam Vital Signs Temp Pulse Resp BP Pulse Ox O2 Del Method 97.6 F 65 17 131/59 H 97 Room Air 10/13/24 04:00 10/13/24 07:51 10/13/24 04:00 10/13/24 07:51 10/13/24 04:00 10/13/24 04:00 Narrative Exam General: AOx3, no acute distress, able to speak full sentences HEENT: NC/AT, mucous membranes moist, bilateral sclera anicteric Cardiovascular: regular rate and rhythm, S1/S2 present, no murmurs appreciated Pulmonary: clear to auscultation bilaterally, no rales/rhonchi/wheezes Abdominal: epigastric tenderness, soft, non-distended, no rebound/guarding, normal bowel sounds present Musculoskeletal: normal ROM, no peripheral edema Skin: warm and dry, intact, no rashes Neuro: CN II-XII intact, no focal deficits Discharge Plan Plan Patient Disposition: HOME (Self Care) Care Plan Goals: ? Start taking Aspirin 81mg daily, Atorvastatin 40mg HS, and Losartan 50mg daily -If feeling dizzy, can try Meclizine 25mg twice daily as needed, but do not take if planning to drive or be active after as medicine can make you drowsy - Continue taking all other home medications as prescribed - Stop taking: Amlodipine, Simvastatin, Lasix, HCTZ, Lisinopril, Metoprolol Succinate, Pantoprazole, and Tizanidine ? Follow-up with PCP within 1-2 weeks of discharge ? If you do not have a PCP, you can follow-up at the [facility] (you can call [phone] to make an appointment) ? If you wish to follow-up with Dr. Davis, schedule appointment on Monday afternoons ? Return to ED if symptoms worsen or recur ? Please follow-up with Cardiology, Dr. Bassett within 1-2 weeks of discharge Trae Bassett M.D. [address] [place] [id number]. Prescriptions/Referrals Prescriptions/Med Rec: New aspirin [Ecotrin Low Strength] 81 mg Tablet,Delayed Release (Dr/Ec) 81 mg PO QDAY 30 Days Qty: 30 0RF losartan 50 mg tablet 50 mg PO QDAY Qty: 30 0RF atorvastatin 40 mg tablet 40 mg PO QPM Qty: 30 0RF meclizine 25 mg tablet 25 mg PO BID PRN (Reason: dizziness) 15 Days Qty: 30 0RF Continued gabapentin 300 mg capsule 300 mg PO TID ezetimibe 10 mg tablet 10 mg PO QDAY Mounjaro 2.5 mg/0.5 mL pen injector 2.5 mg SUBCUT QWEEK Rx Instructions: ON SUNDAYS dicyclomine 10 mg capsule 10 mg PO BID Discontinued lisinopril 20 mg Tablet 40 mg PO QDAY simvastatin 20 mg Tablet 40 mg PO DAILY amlodipine 10 mg tablet 10 mg PO DAILY furosemide [Lasix] 40 mg tablet 40 mg PO QDAY PRN (Reason: Edema) tizanidine 4 mg tablet 4 mg PO HS PRN (Reason: muscle spasticity) pantoprazole 40 mg tablet,delayed release (DR/EC) 40 mg PO QDAY Patient Comments: TAKE 1 TABLET BY MOUTH EVERY DAY hydrochlorothiazide 25 mg tablet 25 mg PO QDAY Patient Comments: TAKE 1 TABLET BY MOUTH EVERY MORNING FOR 90 DAYS metoprolol succinate 25 mg tablet extended release 24 hr 25 mg PO QDAY Patient Comments: TAKE 1 TABLET BY MOUTH EVERY DAY Referrals: Trae Bassett MD [Physician] - Rubia Matthews PA-C [Primary Care Provider] - Sandy Davis MD [Resident] - Patient/Caregiver Discharge Instructions Education Materials: Vertigo Staying Safe, Orthostatic Hypotension, ED Low Blood Pressure, All Causes Print Language: Stateless Stand Alone Forms: Jennifer Award Info., Patient Portal Info Letter Discharge Order Discharge Orders: Discharge (Routine); Ordered 10/13/24 Ordered By: Sandy Davis Quality Discharge Quality Measures VTE prophylaxis MD Attestestation MD Attestation I reviewed labs, imaging, EKG, home medications and prior available records. Face to face evaluation was performed by me. I have personally examined the patient and discussed assessment and plan with the IM team. I reviewed the resident note and agree with the plan with exceptions as below. Presyncope Orthostatic hypotension Symptomatic bradycardia Left carotid artery stenosis CKD stage IIIb Essential hypertension Repeat orthostatic vital signs is negative Encourage oral hydration EKG showed junctional rhythm with first-degree AV block Stopped metoprolol and amlodipine per cardiology recommendations Ordered echocardiogram: Showed preserved EF and mild valvular disease Consulted cardiology: Recommended no cardiac catheterization but outpatient Holter monitoring and aspirin Monitor kidney function: Creatinine improved. Avoid nephrotoxins. Renally dosed medications Continue losartan for the hypertension PT recommended no SNF Plan of care was discussed with the patient and her daughter Time spent is 40 minutes. More than 50% of the time was spent on patient education and coordination of care.
[2024-10-13] MEDS: RINGERS LACTATED 500 ML 500 ML 999 ML IV (08:48)
--- NOTE | 2024-10-13 16:45 | PC.NURSE ---
[facility] downtime occurred on 10/13/24 from 0900 to 1600.
== END 2024-10-13 18:17 | disposition home or self-care (01) | DRG 311 ==
LOC: SERX 13:03 → SERHOLD 13:07 → S2NX 22:18
PROVIDERS: Student in an Organized Health Care Education/Training Program; Admitting Provider Student in an Organized Health Care Education/Training Program; Emergency Provider Emergency Medicine; PCP Physician Assistant; Visit Provider Student in an Organized Health Care Education/Training Program
DX: I20.0 Unstable angina (principal); K85.90 Acute pancreatitis without necrosis or infection, unspecified; N39.0 Urinary tract infection, site not specified; N17.9 Acute kidney failure, unspecified; R00.1 Bradycardia, unspecified; I44.0 Atrioventricular block, first degree; I65.22 Occlusion and stenosis of left carotid artery; N18.32 Chronic kidney disease, stage 3b; I12.9 Hypertensive chronic kidney disease with stage 1 through stage 4 chronic kidney disease, or unspecified chronic kidney disease; E78.5 Hyperlipidemia, unspecified; E11.40 Type 2 diabetes mellitus with diabetic neuropathy, unspecified; E11.22 Type 2 diabetes mellitus with diabetic chronic kidney disease; H54.7 Unspecified visual loss; E86.0 Dehydration; E86.1 Hypovolemia; I95.1 Orthostatic hypotension; M19.90 Unspecified osteoarthritis, unspecified site; Z79.82 Long term (current) use of aspirin; Z79.899 Other long term (current) drug therapy; I35.8 Other nonrheumatic aortic valve disorders
CPT/HCPCS: 36415; 70450; 71045; 80048; 80053; 80061; 80307; 81001; 83036; 83690; 83735; 83880; 84100; 84484; 85025; 85610; 85730; 87081; 87086; 93306; 93880; 97162; J0360; J0696; J1815; J3475; J3490; J7030; J7120; A9270

== ENCOUNTER 2024-10-14 14:33 | Outpatient (AMB) | payer OTHER, MEDICAID, SELFPAY ==
[2024-10-14 15:09] VITALS: BP 170/62; PULSE 61; RESP 18; TEMP 36.2; O2SAT 97; BMI 22.4
--- NOTE | 2024-10-14 15:09 | ACNOTE_ITS ---
Vital Signs 10/14/24 15:09 Height 1.65 m Height Method Stated Weight 61.235 kg Weight Measurement Method Standing Scale BMI 22.4 BP 170/62 H Blood Pressure Source Automatic Cuff Blood Pressure Location Right Upper Arm Position Sitting Respiration 18 Pulse 61 Pulse Source Monitor Temp 97.2 F Temp Source Temporal Artery Scan Pulse Oximetry (%) 97 Oxygen Delivery Method Room Air Allergies/Meds Allergies & Medications Allergies No Known Allergies Allergy (Verified 10/14/24 15:10) Medication Reconciliation gabapentin 300 mg capsule 300 mg PO TID 03/02/23 [History Confirmed 10/14/24] ezetimibe 10 mg tablet 10 mg PO QDAY 08/31/23 [History Confirmed 10/14/24] tirzepatide 2.5 mg/0.5 mL subcutaneous pen injector (Mounjaro) 2.5 mg subcut QWEEK 08/31/23 [History Confirmed 10/14/24] dicyclomine 10 mg capsule 10 mg PO BID 09/09/24 [History Confirmed 10/14/24] aspirin 81 mg tablet,delayed release (Ecotrin Low Strength) 81 mg PO QDAY 30 days #30 tabs 10/13/24 [Rx Confirmed 10/14/24] atorvastatin 40 mg tablet 40 mg PO QPM #30 tabs 10/13/24 [Rx Confirmed 10/14/24] losartan 50 mg tablet 50 mg PO QDAY #30 tabs 10/13/24 [Rx Confirmed 10/14/24] meclizine 25 mg tablet 25 mg PO BID PRN dizziness 15 days #30 tabs 10/13/24 [Rx Confirmed 10/14/24] MA Intake Visit Data Collection New Patient or Established: Established Patient (seen at [facility] within 3 years) Seen by Clinical Staff ONLY (RN/MA): No Pain Present Currently: No Pain scale:: 0 Pain Scale Used: Reyes-Russo/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[employer] Required: No PCP or OBGYN visit in last 3 months: No Hx Now: No Do You Feel Safe at Home: Yes Smoking Status Smoking Status: Never smoker Immunization / Flu Flu Vaccine in the Last 12 Months: No Flu Vaccine Exclusion Criteria: No Exclusion Criteria Past Medical History Past Medical History NEUROLOGIC: Positive Neurological Disorders and Peripheral Neuropathy; Negative Seizures CARDIAC: Positive Cardiac Disorders, Hypercholesterolemia, Edema and Hyp ertension; Negative Congestive Heart Failure RESPIRATORY: Negative Chronic Obstructive Pulmonary Disease (COPD) GASTROINTESTINAL: Positive Gastrointestinal Disorders GENITOURINARY: Negative Genitourinary Disorders, Renal Disease or Kidney Stones REPRODUCTIVE: Positive Previous Pregnancies; Negative Endometriosis MUSCULOSKELETAL: Positive Arthritis ENT: Positive Cataracts ENDOCRINE: Positive Endocrine Disorders and Diabetes Mellitus Type 2; Negative Diabetes Mellitus Type 1 or Hypothyroidism HEMATOLOGIC: Negative Blood Disorders PSYCHO/SOCIAL: Positive Depression and Anxiety OTHER HISTORY: Negative Autoimmune Disease, Falls, Blood Transfusions, Anesthesia Reactions, Chicken Pox or Cancer Family History FAMILY HISTORY: Negative Family Psychiatric Problems, Family Respiratory Disorders, Family Cardiac Disorders, Family Gastrointestinal Problems, Family Cancer, Family Surgery or Family Anesthesia Reaction Surgical History SURGICAL: Positive Hysterectomy and Tubal Ligation Social History SMOKING STATUS: Smoking status: Never smoker ALCOHOL: Alcohol Intake: Former ALCOHOL FREQUENCY: Alcohol Intake Frequency: holidays/special occasions only HOUSING: Housing: House LIVES WITH: Lives With: Significant Other Patient Portal [place] Social History Living Situation History Housing: House Tobacco History Smoking Status: Never smoker Alcohol History Alcohol Intake: Former Alcohol Intake Frequency: holidays/special occasions only Domestic Abuse History Do You Feel Safe at Home: Yes Review of Systems Report any current symptoms Only answer those that you have currently: Past Medical History Past Medical History Have you ever been diagnosed with any of the following: Neurological Problems Seizures: No Peripheral Neuropathy: Yes Cardiology Problems Hypercholesterolemia: Yes Congestive Heart Failure: No Edema: Yes Hypertension: Yes Respiratory Problems Chronic Obstructive Pulmonary Disease (COPD): No Genital/Urinary Problems Renal Disease: No Kidney Stones: No Reproductive Problems Endometriosis: No Previous Pregnancies: Yes Musculoskeletal Problems Arthritis: Yes Head,Eye,Nose,Throat Problems Cataracts: Yes Endocrine Problems Diabetes Mellitus Type 1: No Diabetes Mellitus Type 2: Yes Hypothyroidism: No Psychologic Problems Depression: Yes Anxiety: Yes Other Problems Autoimmune Disease: No Falls: No Blood Transfusions: No Anesthesia Reactions: No Chicken Pox: No Cancer: No Surgical History Hysterectomy: Yes History of Present Illness HPI Narrative Ms. Gamez is a 79-year-old female with a past medical history significant for hypertension, type 2 diabetes mellitus on Mounjaro, and CKD IIIb (follows Dr. Oquendo) who is here for hospital f/u. Patient was discharged yesterday, 10/13/24 for orthostatic hypotension. Patient seen today, and endorsed one episode of weakness while waking up and standing in the AM today to use the restroom. Patient denied any chest pain or dizziness. Patient stated she used the slow rise technique. 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 Spoke with Dr. Bassett's office, and will schedule a hospital f/u appointment for this Monday at 10AM. Of note, in the hospital, Troponins were negative, BNP mildly elevated, initial EKG in the ED showed NSR with 1st degree block with HR 60s but prior to arrival noted to be in the 40s. A1c 7.5%. Last lipid panel showed LDL at 49 and TG at 269. Carotid US showed R ICA having 0-10% stenosis and L ICA suspicious for significant stenosis in distal L ICA. Per cardiology, no significant stenosis of distal left carotid artery noted as per report d/t velocities still being at 1m/s. Cardiology was consulted and recommended to have outpatient cardiology follow-up for more work-up including holter monitor testing. Review of Systems Review of Systems Systems Reviewed: All systems reviewed, normal except as documented Objective/Exam Narrative Physical exam: General: AOx3, no acute distress, able to speak full sentences HEENT: NC/AT, mucous membranes moist, bilateral sclera anicteric Cardiovascular: regular rate and rhythm, S1/S2 present, no murmurs appreciated Pulmonary: clear to auscultation bilaterally, no rales/rhonchi/wheezes Abdominal: epigastric tenderness, soft, non-distended, no rebound/guarding, normal bowel sounds present Musculoskeletal: normal ROM, no peripheral edema Skin: warm and dry, intact, no rashes Neuro: CN II-XII intact, no focal deficits Assessment & Plan Diagnosis / Problem List (1) Pre-syncope: Status: Acute Assessment & Plan: Patient was discharged yesterday, 10/13/24 for orthostatic hypotension. Patient seen today, and endorsed one episode of weakness while waking up and standing in the AM today to use the restroom. Patient denied any chest pain or dizziness. Patient stated she used the slow rise technique. 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 Plan: -Spoke with Dr. Bassett's office, and will schedule a hospital f/u appointment for this Monday at 10AM. -Referral sent to Dr. 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 Per cardiology, no significant stenosis of distal left carotid artery noted as per report d/t velocities still being at 1m/s. Cardiology was consulted and recommended to have outpatient cardiology follow-up for more work-up including holter monitor testing. Plan: -Sent referral to Cardiology -Will start patient on ASA and high-intensity Statin (4) Hypertension: Status: Acute Assessment & Plan: Patient's BP is high today at 170/62. Patient has a hx of antihypertensive use. 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 Elias. Sandy Davis, PGY-2 Advanced Care Planning Advance care planning discussed with:: patient and significant other Office Procedures [facility] Level of Care Nursing/Assessment Patient Status: Established Patient Nursing Assessment/Reassessment: Medication Reconciliation, Update PMH in EMR and Vital Signs Coordination of Care: Complex Care and Chronic Disease 1-5, Consent,records obtained, informed consent, Education Simp Pt/Fam and Staff clarify orders Established Patient Charge Established Patient Point Assignment: 85 Established Patient Point Charge: EP Level 3 (80-115)
== END 2024-10-14 15:33 | disposition home or self-care (01) ==
LOC: HODAHC 14:33
PROVIDERS: Supervising Provider Internal Medicine; Visit Provider Student in an Organized Health Care Education/Training Program
DX: I95.1 Orthostatic hypotension (principal); I65.22 Occlusion and stenosis of left carotid artery; I10 Essential (primary) hypertension
CPT/HCPCS: 99213; G0463

== ENCOUNTER → 2024-11-20 | Outpatient (CLI) | payer OTHER, MEDICAID, SELFPAY ==
[2024-11-20 10:35] LABS: Glucose Estimated Average 163 mg/dL (80-131); Hemoglobin A1C 7.3 % Hgb (4.8-6.0)
[2024-11-20 10:46] LABS: Alanine Aminotransferase 14 U/L (10-49); Albumin, Serum 3.8 gm/dL (3.4-4.8); Albumin/Globulin Ratio 2.1 (1.2-2.2); Alkaline Phosphatase 72 U/L (46-116); Anion Gap 7 (7-16); Aspartate Amino Transferase 16 U/L (0-34); BUN/Creatinine Ratio 21 Ratio (12-20); Bilirubin,Total 0.5 mg/dL (0.3-1.2); Blood Urea Nitrogen 32 mg/dL (9-23); Calcium 8.9 mg/dL (8.3-10.6); Calcium (Corrected) 9.1 mg/dL (8.5-10.1); Carbon Dioxide 25.6 mMol/L (20.0-31.0); Chloride 109 mMol/L (98-107); Cholesterol 131 mg/dL (132-200); Creatinine (Component) 1.5 mg/dL (0.6-1.3); Globulin 1.8 gm/dL (2.3-3.5); Glucose 183 mg/dL (74-106); HDL Cholesterol 33 mg/dL (40-60); LDL Cholesterol,Calculated 56 mg/dL (0-130); Osmolality,Calculated 295 (275-295); Potassium 4.2 mMol/L (3.4-5.1); Sodium 142 mMol/L (136-145); Total Protein 5.6 gm/dL (5.7-8.2); Triglycerides 210 mg/dL (30-150); eGFR 36 See Note
== END | disposition home or self-care (01) ==
LOC: COPL 09:25
PROVIDERS: PCP Physician Assistant; Referring Provider Physician Assistant; Visit Provider Physician Assistant
DX: I12.9 Hypertensive chronic kidney disease with stage 1 through stage 4 chronic kidney disease, or unspecified chronic kidney disease (principal); E11.22 Type 2 diabetes mellitus with diabetic chronic kidney disease; N18.30 Chronic kidney disease, stage 3 unspecified; E78.5 Hyperlipidemia, unspecified; E11.65 Type 2 diabetes mellitus with hyperglycemia
CPT/HCPCS: 36415; 80053; 80061; 83036

== ENCOUNTER → 2025-01-06 | Outpatient (CLI) | payer OTHER, MEDICAID, SELFPAY ==
[2025-01-06 11:11] LABS: Alanine Aminotransferase 28 U/L (10-49); Albumin, Serum 3.5 gm/dL (3.4-4.8); Albumin/Globulin Ratio 1.9 (1.2-2.2); Alkaline Phosphatase 75 U/L (46-116); Anion Gap 11 (7-16); Aspartate Amino Transferase 24 U/L (0-34); BUN/Creatinine Ratio 17 Ratio (12-20); Bilirubin,Total 0.4 mg/dL (0.3-1.2); Blood Urea Nitrogen 32 mg/dL (9-23); Calcium 8.5 mg/dL (8.3-10.6); Calcium (Corrected) 8.9 mg/dL (8.5-10.1); Carbon Dioxide 23.2 mMol/L (20.0-31.0); Cardiac Risk Estimate 3.2 RATIO (3.7-5.6); Chloride 107 mMol/L (98-107); Cholesterol 123 mg/dL (132-200); Creatinine (Component) 1.9 mg/dL (0.6-1.3); Globulin 1.8 gm/dL (2.3-3.5); Glucose 187 mg/dL (74-106); HDL Cholesterol 39 mg/dL (40-60); LDL Cholesterol,Calculated 49 mg/dL (0-130); Osmolality,Calculated 293 (275-295); Potassium 4.0 mMol/L (3.4-5.1); Sodium 141 mMol/L (136-145); Total Protein 5.3 gm/dL (5.7-8.2); Triglycerides 173 mg/dL (30-150); eGFR 27 See Note
[2025-01-06 11:42] LABS: Glucose Estimated Average 263 mg/dL (80-131); Hemoglobin A1C 10.8 % Hgb (4.8-6.0)
== END | disposition home or self-care (01) ==
LOC: COPL 09:13
PROVIDERS: PCP Family Medicine; Referring Provider Physician Assistant; Visit Provider Physician Assistant
DX: I12.9 Hypertensive chronic kidney disease with stage 1 through stage 4 chronic kidney disease, or unspecified chronic kidney disease (principal); E11.22 Type 2 diabetes mellitus with diabetic chronic kidney disease; N18.30 Chronic kidney disease, stage 3 unspecified; E11.65 Type 2 diabetes mellitus with hyperglycemia; E78.5 Hyperlipidemia, unspecified
CPT/HCPCS: 36415; 80053; 80061; 83036

== ENCOUNTER → 2025-01-14 | Outpatient (CLI) | payer OTHER, MEDICAID, SELFPAY ==
[2025-01-14 12:55] LABS: Basophils # (Auto) 0.0 Thou/mm3 (0.0-0.2); Basophils % (Auto) 0 % (0-2.5); Eosinophils # (Auto) 0.2 Thou/mm3 (0.0-0.5); Eosinophils % (Auto) 2 % (0-10); Hematocrit 30.6 % (36.0-46.0); Hemoglobin 10.1 g/dL (12.0-16.0); Immature Granulocytes Auto 0.04 Thou/mm3 (0.00-0.00); Lymphocytes # (Auto) 2.6 Thou/mm3 (1.0-4.8); Lymphocytes % (Auto) 30 % (10-50); Mean Corpuscular HGB Conc 33.0 g/dl (31.0-37.0); Mean Corpuscular Hemoglobin 29.4 pg (25.0-35.0); Mean Corpuscular Volume 89 fL (80-100); Monocytes # (Auto) 0.6 Thou/mm3 (0.0-0.8); Monocytes % (Auto) 7 % (0-12); Neutrophils # (Auto) 5.2 Thou/mm3 (1.8-7.7); Neutrophils % (Auto) 61 % (37-80); Nucleated Red Blood Cell # 0.00 Thou/mm3 (0.00-0.00); Nucleated Red Blood Cell % 0 /100 WBC (0); Platelet Count 250 Thou/mm3 (140-440); RDW Standard Deviation 44.4 fL (36.4-46.3); Red Blood Count 3.43 Miln/mm3 (4.00-5.20); White Blood Count 8.6 Thou/mm3 (3.6-11.0)
[2025-01-14 13:03] LABS: Glucose Estimated Average 263 mg/dL (80-131); Hemoglobin A1C 10.8 % Hgb (4.8-6.0)
[2025-01-14 13:05] LABS: Alanine Aminotransferase 42 U/L (10-49); Albumin, Serum 3.6 gm/dL (3.4-4.8); Albumin/Globulin Ratio 2.0 (1.2-2.2); Alkaline Phosphatase 92 U/L (46-116); Anion Gap 11 (7-16); Aspartate Amino Transferase 34 U/L (0-34); BUN/Creatinine Ratio 17 Ratio (12-20); Bilirubin,Total 0.3 mg/dL (0.3-1.2); Blood Urea Nitrogen 38 mg/dL (9-23); Calcium 9.3 mg/dL (8.3-10.6); Calcium (Corrected) 9.6 mg/dL (8.5-10.1); Carbon Dioxide 22.3 mMol/L (20.0-31.0); Chloride 107 mMol/L (98-107); Creatinine (Component) 2.3 mg/dL (0.6-1.3); Globulin 1.8 gm/dL (2.3-3.5); Glucose 137 mg/dL (74-106); Osmolality,Calculated 290 (275-295); Phosphorous 3.7 mg/dL (2.4-5.1); Potassium 4.2 mMol/L (3.4-5.1); Sodium 140 mMol/L (136-145); Total Protein 5.4 gm/dL (5.7-8.2); eGFR 21 See Note
[2025-01-14 13:22] LABS: B-Type Natriuretic Peptide 838 pg/mL (0-100)
== END | disposition home or self-care (01) ==
LOC: CDIM 11:41 → COPL 12:03
PROVIDERS: PCP Physician Assistant; Referring Provider Physician Assistant; Visit Provider Physician Assistant
DX: E11.22 Type 2 diabetes mellitus with diabetic chronic kidney disease (principal); N18.2 Chronic kidney disease, stage 2 (mild); N39.0 Urinary tract infection, site not specified; R60.0 Localized edema
CPT/HCPCS: 36415; 80053; 81001; 83036; 83880; 84100; 85025

== ENCOUNTER → 2025-01-15 | Outpatient (CLI) | payer OTHER, MEDICAID, SELFPAY ==
--- NOTE | 2025-01-15 15:43 | XR_ITS ---
Examination: Venous duplex lower extremity sonogram, bilateral. Date and time of exam: January 15, 2025 1553 hours INDICATIONS: Bilateral leg filling and pain beginning one month ago Technique: Multiple sonographic images of the deep venous system have been obtained. B-mode/2-D grayscale imaging of vascular structures and Doppler spectral analysis (waveforms) and color performed Both legs are examined. Findings: Deep venous systems do not demonstrate abnormal echogenicity. All visualized deep veins exhibit compressibility. All visualized deep veins exhibit augmentation. Impression: Negative for deep vein thrombosis
== END | disposition home or self-care (01) ==
LOC: CDIM 15:36
PROVIDERS: Referring Provider Physician Assistant; Visit Provider Physician Assistant
DX: R60.0 Localized edema (principal)
CPT/HCPCS: 93970

== ENCOUNTER → 2025-01-15 | Outpatient (CLI) | payer OTHER, MEDICAID, SELFPAY ==
[2025-01-15 08:06] LABS: Collection Type, Urine Clean Catch
[2025-01-15 09:38] LABS: Bilirubin,Urine Negative (Negative); Blood,Urine Negative (Negative); Clarity,Urine Clear (Clear/Hazy); Color,Urine Lt-Yellow (Lt Yel-Yel); Glucose, Urine 1+ (Negative); Ketones,Urine Negative (Negative); Leukocyte Esterase,Urine Positive (Negative); Nitrite,Urine Negative (Negative); PH,Urine 6.0 (5.0-7.0); Protein,Urine 2+ (Neg - Trace); RBC,Urine 2 /hpf (0-3); Specific Gravity,Urine 1.010 (1.001-1.035); Squamous Epithelial Cell,Urine 1 /hpf (0-5); Urobilinogen,Urine Negative mg/dL (0.0-1.0); WBC,Urine 20 /hpf (0-5)
[2025-01-15 09:45] LABS: Culture Indicated,Urine Yes
== END | disposition home or self-care (01) ==
LOC: SLDO 07:57
PROVIDERS: Referring Provider Internal Medicine Nephrology; Visit Provider Internal Medicine Nephrology
DX: E11.22 Type 2 diabetes mellitus with diabetic chronic kidney disease (principal); N18.2 Chronic kidney disease, stage 2 (mild); N39.0 Urinary tract infection, site not specified
CPT/HCPCS: 81001; 87086

== ENCOUNTER → 2025-01-21 | Outpatient (CLI) | payer OTHER, MEDICAID, SELFPAY ==
--- NOTE | 2025-01-21 | XR_ITS ---
Examination: PA lateral chest 2 views TECHNIQUE: Upright PA and lateral chest 2 views Date and time: January 21, 2025, 1152 hours INDICATIONS: Shortness of breath in 2 months ago. FINDINGS: Mild prominence left ventricle. No pneumonia or pulmonary edema. Significant osteopenia. IMPRESSION: No pneumonia or pulmonary edema.
== END | disposition home or self-care (01) ==
PROVIDERS: PCP Physician Assistant; Referring Provider Physician Assistant; Visit Provider Physician Assistant
DX: R06.02 Shortness of breath (principal)
CPT/HCPCS: 71046

== ENCOUNTER → 2025-02-07 | Outpatient (CLI) | payer OTHER, MEDICAID, SELFPAY ==
--- NOTE | 2025-02-07 13:40 | XR_ITS ---
Examination: Bone densitometry Date and time of exam:February 07, 2025, 1422 hours INDICATIONS: Hysterectomy age 38 vitamin D 1 year diabetic lumbar spine surgery 2 years ago, personal history osteopenia Technique: Lumbar spine and hip total bone mineralization values of an calculated. Peak reference and age match control results have been displayed. Findings: Lumbar spine total bone mineralization is1.084 gm/cm2. This is 1.0 standard deviations above peak reference. This is 3.3 standard deviations above age-matched controls. Hip total bone mineralization is 0.971 gm/cm2 This is 21 standard deviations above peak reference. This is 2.0 standard deviations above age-matched controls Impression: There is normal mineralization based on lumbar spine measurements. There is normal mineralization based on hip measurements Lumbar mineralization is increase 20.2% compared with May 25, 2018 Hip mineralization is increased 3.6% compared with May 25, 2018
== END | disposition home or self-care (01) ==
LOC: CDIM 13:54
PROVIDERS: Referring Provider Physician Assistant; Visit Provider Physician Assistant
DX: M81.0 Age-related osteoporosis without current pathological fracture (principal)
CPT/HCPCS: 77080

== ENCOUNTER 2025-03-20 12:45 | Emergency (ER) | payer OTHER, MEDICAID, SELFPAY ==
[2025-03-20] VITALS (7 sets, daily range): BP systolic 95–166; BP diastolic 60–71; PULSE 40–70; RESP 16–18; TEMP 36.4–36.7; O2SAT 96–100; BMI 25.4
--- NOTE | 2025-03-20 | XR_ITS ---
Examination: CT brain head without contrast. 2-D sagittal coronal reconstructions Date and time of exam: March 20, 2025, 1310 hours INDICATIONS: Ground-level fall today with injury to head, head pain COMPARISON: October 11, 2024 CTDI: vol (mGy): 47.2 DLP: (mGycm): 947 Technique: Multiple CT axial sections of the brain have been obtained, 5 mm slice thickness. Contrast has not been administered. 2-D sagittal, coronal reconstructions have been obtained Low dose protocols were performed. One or more of the following dose reduction techniques were used; automated exposure control, adjustment of the mA and/or KV according to patient size, use of iterative reconstruction technique. Findings: No significant ventricular enlargement. Intra-axial or extra-axial hemorrhage density is not seen. No mass effect or midline shift Basal cisterns are not remarkable. Fourth ventricle is midline. Cranial vault intact. Impression: Negative for acute hemorrhage, mass effect or midline shift
--- NOTE | 2025-03-20 12:58 | EKG_ITS ---
[facility] Test Date: 2025-03-20 Pat Name: MONA STEVENS Department: Room: - Gender: Female Bilingual Receptionist: : 1945 Requested By: Holden Diaz (AMBROSE) Order Number: [id number] Reading MD: Holden Diaz (DENTAL INSURANCE COORDINATOR) Measurements Intervals [place] Rate: 43 P: [place]: QRS: -42 QRSD: 95 T: 44 QT: 472 QTc: 400 Interpretive Statements ATRIAL FIBRILLATION WITH SLOW VENTRICULAR RESPONSE LEFT AXIS DEVIATION [QRS AXIS < -30] PATTERN CONSISTENT WITH PULMONARY DISEASE Compared to ECG 10/11/2024 09:48:36 Left-axis deviation now present Sinus rhythm no longer present First degree AV block no longer present Left anterior fascicular block no longer present /store/S0/[id number].pdf
--- NOTE | 2025-03-20 12:58 | XR_ITS ---
Examination: CT cervical spine without contrast 2-D sagittal reconstructions 2-D coronal reconstructions 3-D reconstructions. Exam date and time: March 20, 2025, 1310 hours INDICATIONS: Ground-level fall today with injury to neck, neck pain CTDI:vol (mGy) 12.8 DLP: (mGycm) 266 Technique: Multiple 2 mm axial sections of the cervical spine have been obtained. The coronal and sagittal reconstructions have been obtained. 3-D reconstructions have been obtained. Low dose protocols were performed. One or more of the following dose reduction techniques were used; automated exposure control, adjustment of the mA and/or KV according to patient size, use of iterative reconstruction technique. Findings: Axial sections demonstrate intact base of the skull. C1 exhibit satisfactory relationship to the odontoid. No acute cervical vertebral body fracture seen. Alignment posterior spinous processes satisfactory. Impression: No acute cervical fracture.
--- NOTE | 2025-03-20 12:58 | XR_ITS ---
Examination: Knee, left, 3 views Technique: Knee AP, lateral, oblique 3 views Date and time of exam: March 20, 2025, 1321 hours INDICATIONS: Ground-level fall today with injury to the knee, knee pain. FINDINGS: Prominent osteopenia. No fracture or dislocation. Small knee effusion. IMPRESSION: No fracture or dislocation
--- NOTE | 2025-03-20 12:59 | PD.EDRME ---
Rapid Medical Screening Exam RME Arrival date/time: 03/20/25 12:45 79-year-old female presents to the Emergency Department today stating that she felt dizzy today and reports falling injuring her left knee patient also does report striking her head Chief Complaint: Extremity Injury, Lower Exam: On exam patient well-appearing patient does not appear look toxic On exam patient does have swelling of left knee with mild pain with movement Clinical Impression: Lab work and imaging obtained Differentials include but not limited to ACS, closed head injury, dizziness, fall
[2025-03-20 13:59] LABS: Basophils # (Auto) 0.0 Thou/mm3 (0.0-0.2); Basophils % (Auto) 0 % (0-2.5); Eosinophils # (Auto) 0.2 Thou/mm3 (0.0-0.5); Eosinophils % (Auto) 3 % (0-10); Hematocrit 31.3 % (36.0-46.0); Hemoglobin 10.4 g/dL (12.0-16.0); Immature Granulocytes Auto 0.04 Thou/mm3 (0.00-0.00); Lymphocytes # (Auto) 1.8 Thou/mm3 (1.0-4.8); Lymphocytes % (Auto) 22 % (10-50); Mean Corpuscular HGB Conc 33.2 g/dl (31.0-37.0); Mean Corpuscular Hemoglobin 29.7 pg (25.0-35.0); Mean Corpuscular Volume 89 fL (80-100); Monocytes # (Auto) 0.4 Thou/mm3 (0.0-0.8); Monocytes % (Auto) 4 % (0-12); Neutrophils # (Auto) 5.5 Thou/mm3 (1.8-7.7); Neutrophils % (Auto) 70 % (37-80); Nucleated Red Blood Cell # 0.00 Thou/mm3 (0.00-0.00); Nucleated Red Blood Cell % 0 /100 WBC (0); Platelet Count 260 Thou/mm3 (140-440); RDW Standard Deviation 43.8 fL (36.4-46.3); Red Blood Count 3.50 Miln/mm3 (4.00-5.20); White Blood Count 7.9 Thou/mm3 (3.6-11.0)
[2025-03-20 14:14] LABS: INR 1.0 (0.9-1.3); Partial Thromboplastin Time 27.6 Seconds (22.0-36.0); Prothrombin Time 10.4 Seconds (9.0-12.2)
[2025-03-20 14:18] LABS: B-Type Natriuretic Peptide 651 pg/mL (0-100)
[2025-03-20 14:34] LABS: Alanine Aminotransferase 11 U/L (10-49); Albumin, Serum 3.7 gm/dL (3.4-4.8); Albumin/Globulin Ratio 2.3 (1.2-2.2); Alkaline Phosphatase 74 U/L (46-116); Anion Gap 10 (7-16); Aspartate Amino Transferase 15 U/L (0-34); BUN/Creatinine Ratio 15 Ratio (12-20); Bilirubin,Total 0.2 mg/dL (0.3-1.2); Blood Urea Nitrogen 38 mg/dL (9-23); Calcium 8.6 mg/dL (8.3-10.6); Calcium (Corrected) 8.8 mg/dL (8.5-10.1); Carbon Dioxide 18.8 mMol/L (20.0-31.0); Chloride 106 mMol/L (98-107); Creatinine (Component) 2.6 mg/dL (0.6-1.3); Estimated Creatinine Clearance 14.6 mL/min (>60); Globulin 1.6 gm/dL (2.3-3.5); Glucose 303 mg/dL (74-106); Magnesium 2.1 mg/dL (1.6-2.6); Osmolality,Calculated 290 (275-295); Potassium 5.5 mMol/L (3.4-5.1); Sodium 135 mMol/L (136-145); Total Protein 5.3 gm/dL (5.7-8.2); Troponin I < 0.020 ng/mL (0.0-0.045); eGFR 18 See Note
--- NOTE | 2025-03-20 15:07 | XR_ITS ---
EXAMINATION: AP chest single view TECHNIQUE: AP portable upright chest single view Date and time: March 20, 2025, 1514 hours INDICATIONS: Cough and shortness of breath today. FINDINGS: Normal heart size Lungs are clear. Moderate osteopenia IMPRESSION: No active disease
[2025-03-20] MEDS: SODIUM BICARB INJ 8.4% 1 mEq/ML 50 ML VIAL 50 MEQ IV (15:29)
[2025-03-20] MEDS: SODIUM CHLORIDE 0.9% 1000 ML 1,000 ML 250 ML IV (15:32)
[2025-03-20] MEDS: DEXTROSE 50%-WATER INJ 50 ML SYRINGE IVP (15:44)
[2025-03-20] MEDS: INSULIN HUM REGULAR 1 UNIT/0.01 ML (PER UNIT) 10 UNIT IV (15:45)
[2025-03-20] MEDS: SOD POLYSTYRENE SULFON SUSP 15 GM/60 ML BTL PO ×2 (15:47→19:16)
[2025-03-20] MEDS: CALCIUM GLUCONATE IV (15:48)
[2025-03-20] MEDS: SODIUM CHLORIDE IV (15:48)
--- NOTE | 2025-03-20 16:07 | PD.EDADULT ---
ED General RME/HPI General Chief complaint: Extremity Injury, Lower Stated complaint: fall left leg hurts Arrival date/time: 03/20/25 12:45 Limitations: no limitations RME / HPI RME / HPI narrative: 03/20/25 12:45 79-year-old female presents to the Emergency Department today stating that she felt dizzy today and reports falling injuring her left knee patient also does report striking her head DR. SOLER MAIN ED EVALUATION: 79 year old female with history of hypertension, diabetes, and CKD presents to the ED for evaluation of global weakness and feeling dizzy today. Reportedly at home had a ground level fall due to the dizziness and struck her left knee on the floor, now complaining of pain. The daughter additionally expressed concerns of low heart rate. States the patient has been evaluated and admitted here three times before for symptomatic bradycardia. No other injuries or complaints reported. Denies fevers, chills, sweats, chest pain, cough, shortness of breath, abdominal pain, nausea, vomiting, diarrhea, or urinary symptoms. Back Hoe Machine Operator: Dr. Bassett Mortuary Beautician: Dr. Oquendo Exam: On exam patient well-appearing patient does not appear look toxic On exam patient does have swelling of left knee with mild pain with movement Impression: Lab work and imaging obtained Differentials include but not limited to ACS, closed head injury, dizziness, fall Related Data Home Medications ?Medication ?Instructions ?Recorded ?Confirmed gabapentin 300 mg capsule 300 mg PO TID 03/02/23 10/14/24 ezetimibe 10 mg tablet 10 mg PO QDAY 08/31/23 10/14/24 tirzepatide 2.5 mg/0.5 mL 2.5 mg subcut QWEEK 08/31/23 10/14/24 subcutaneous pen injector (Mounjaro) dicyclomine 10 mg capsule 10 mg PO BID 09/09/24 10/14/24 Previous Rx's ?Medication ?Instructions ?Recorded atorvastatin 40 mg tablet 40 mg PO QPM #30 tabs 10/13/24 losartan 50 mg tablet 50 mg PO QDAY #30 tabs 10/13/24 Allergies Allergy/AdvReac Type Severity Reaction Status Date / Time No Known Allergies Allergy Verified 10/14/24 15:10 Review of Systems Review of Systems Systems Reviewed: All systems reviewed, normal except as documented Past Medical History Past Medical History NEUROLOGIC: Positive Neurological Disorders and Peripheral Neuropathy CARDIAC: Positive Cardiac Disorders, Hypercholesterolemia, Edema and Hypertension GASTROINTESTINAL: Positive Gastrointestinal Disorders REPRODUCTIVE: Positive Previous Pregnancies MUSCULOSKELETAL: Positive Musculoskeletal Disorders and Arthritis ENT: Positive Cataracts ENDOCRINE: Positive Endocrine Disorders and Diabetes Mellitus Type 2 PSYCHO/SOCIAL: Positive Depression and Anxiety Surgical History SURGICAL: Positive Hysterectomy and Tubal Ligation Social History SMOKING STATUS: Never smoker ED Exam General Limitations: Present no limitations General appearance: Present alert and in no apparent distress Head Head exam: Present atraumatic Eye Eye exam: Present normal appearance, PERRL and EOMI ENT ENT exam: Present normal exam, normal oropharynx and mucous membranes moist Neck Neck exam: Present normal inspection, full ROM and trachea midline Chest Chest inspection: Present normal inspection and symmetric chest wall rise Respiratory Respiratory exam: Present normal lung sounds bilaterally Cardiovascular Cardiovascular exam: Present regular rate, normal rhythm and normal heart sounds Abdominal Exam Abdominal exam: Present soft and normal bowel sounds Extremities Exam Extremities exam: Present normal inspection and full ROM Back Exam Back exam: Present normal inspection and full ROM Neurological Exam Neurological exam: Present alert, oriented X3 and CN II-XII intact Psychiatric Psychiatric exam: Present normal affect and normal mood Skin Skin exam: Present warm, dry, intact and normal color Course Quality Measures none Orders Category Date Time Status Valve Liner Rubber NOW Care 03/20/25 15:07 Active Continuous Pulse Oximetry NOW Care 03/20/25 15:07 Active EKG (ED ONLY) *Do not use* NOW Care 03/20/25 12:58 Completed IV [Insert IV] NOW Care 03/20/25 14:19 Active Insert IV NOW Care 03/20/25 15:[address] cervical spine wo con Stat Exams 03/20/25 12:[address] head/brain wo con Stat Exams 03/20/25 Completed EKG (ED Only) Stat Exams 03/20/25 12:58 Draft XR chest 1V portable Stat Exams 03/20/25 15:07 Completed XR knee LT 3V Stat Exams 03/20/25 12:58 Completed B-Type Natriuretic Peptide Stat Lab 03/20/25 13:42 Completed CBC Stat Lab 03/20/25 13:42 Completed Comprehensive Metabolic Panel Stat Lab 03/20/25 13:42 Completed Free T4 (Free Thyroxine) Routine Lab 03/20/25 17:01 Ordered Lipid Panel Routine Lab 03/20/25 17:01 Ordered Magnesium Stat Lab 03/20/25 13:42 Completed Partial Thromboplastin Time Stat Lab 03/20/25 13:42 Completed Prothrombin Time with INR Stat Lab 03/20/25 13:42 Completed TSH [Thyroid Stimulating Hormone] Routine Lab 03/20/25 17:01 Ordered Troponin I Stat Lab 03/20/25 13:42 Completed Calcium Gluc/Ns 1000MG Ivpb [Calcium Gluc/Ns 1000mg Med 03/20/25 15:07 Discontinued Ivpb] 1 gm in 50 ml IV X1 Dextrose 50% Syr [D50w Syringe Abboject] Med 03/20/25 15:07 Discontinued 50 ml IVP X1 ONE Insulin Regular Med 03/20/25 15:07 Discontinued 10 unit IV X1 ONE Sod Polystyrene Sulfon Susp [Kayexalate Susp] Med 03/20/25 15:07 Discontinued 15 gm PO X1 ONE Sodium Bicarb 8.4% 50ml Vial* Med 03/20/25 15:07 Discontinued 50 meq IV X1 ONE Sodium Chloride 0.9% 1000 ml [Ns] 1,000 ml Med 03/20/25 15:07 Active IV 250 mls/hr Oxygen Delivery NOW RT 03/20/25 15:07 Active Vital Signs Vital signs: Vital Signs Temperature 97.6 F 03/20/25 13:17 Pulse Rate 43 L 03/20/25 13:17 Respiratory Rate 18 03/20/25 13:17 Blood Pressure 95/69 03/20/25 13:17 Pulse Oximetry (%) 96 03/20/25 13:17 Oxygen Delivery Method Room Air 03/20/25 13:17 Pulse ox is 96% on room air which is adequate. Discharge Plan Plan Patient Disposition: HOME (Self Care) Prescriptions/Referrals Prescriptions/Med Rec: No Action gabapentin 300 mg capsule 300 mg PO TID ezetimibe 10 mg tablet 10 mg PO QDAY Mounjaro 2.5 mg/0.5 mL pen injector 2.5 mg SUBCUT QWEEK Rx Instructions: ON SUNDAYS dicyclomine 10 mg capsule 10 mg PO BID losartan 50 mg tablet 50 mg PO QDAY Qty: 30 0RF atorvastatin 40 mg tablet 40 mg PO QPM Qty: 30 0RF Referrals: No Primary/Family,Physician [Primary Care Provider] - In 1 week Problem List Clinical Impression: Bradycardia Patient/Caregiver Discharge Instructions Additional Instructions: Please stop the Losartan and follow up with your philosophy professor Dr. Oquendo. Return here Monday morning to have your potassium and heart rate rechecked. You can return to the emergency department sooner if symptoms worsen or if you notice any new, concerning issues. Print Language: Hungarian Stand Alone Forms: Jennifer Award Info., Patient Portal Info Letter MDM Narrative [facility] hospital course (for use when minimal MDM required): IAyse, am scribing for and in the presence of Dr. Soler. Patient on arrival to the ED was bradycardic in the low 40s. Labs reveal hyperkalemia at 5.5. Ordered sodium bicarb, D50, insulin, calcium gluconate and kayexalate. Patients bradycardia improved, now high 60s on telemetry. Patient reports feeling improved. I advised she stop the Losartan and follow up with her philosophy professor Dr. Oquendo regarding medications. I also instructed the patient to return here Monday to recheck her potassium and heart rate. Patient is in agreement with plan. Clinical Information Provided by: patient Medical Records reviewed [facility] Meds/Rx considered, not ordered None Labs/Rad/Tests considered, not ordered None Chronic Illness/Social Conditions which may negatively complicate care or outcome(s)-explain: CHF/CAD/Cardiac illness EKG Interpretation EKG #1: EKG Interpretation: EKG @ 13:17. Atrial fibrillation with slow ventricular response, rate 43, left axis deviation, no STEMI. Labs Labs: interpreted by tn Lab(s) Interpretation(s): Potassium elevated at 5.5 Imaging Imaging Interpretation(s): Ordering Physician: Joe CHAVARRIA)Holden NP Date of Service: 03/20/25 Procedure(s): CT head/brain wo con Accession Number(s): [id number] cc: Joe CHAVARRIA)Holden NP; Tk Jerome MD~ Examination: CT brain head without contrast. 2-D sagittal coronal reconstructions Date and time of exam: March 20, 2025, 1310 hours INDICATIONS: Ground-level fall today with injury to head, head pain COMPARISON: October 11, 2024 CTDI: vol (mGy): 47.2 DLP: (mGycm): 947 Technique: Multiple CT axial sections of the brain have been obtained, 5 mm slice thickness. Contrast has not been administered. 2-D sagittal, coronal reconstructions have been obtained Low dose protocols were performed. One or more of the following dose reduction techniques were used; automated exposure control, adjustment of the mA and/or KV according to patient size, use of iterative reconstruction technique. Findings: No significant ventricular enlargement. Intra-axial or extra-axial hemorrhage density is not seen. No mass effect or midline shift Basal cisterns are not remarkable. Fourth ventricle is midline. Cranial vault intact. Impression: Negative for acute hemorrhage, mass effect or midline shift Dictated By: Tk Jerome MD Signed By: <Electronically signed by Tk Jerome MD in OV> 03/20/25 1337 Ordering Physician: Joe CHAVARRIA)Holden NP Date of Service: 03/20/25 Procedure(s): CT cervical spine con Accession Number(s): [id number] cc: Joe CHAVARRIA)Holden NP; Tk Jerome MD~ Examination: CT cervical spine without contrast 2-D sagittal reconstructions 2-D coronal reconstructions 3-D reconstructions. Exam date and time: March 20, 2025, 1310 hours INDICATIONS: Ground-level fall today with injury to neck, neck pain CTDI:vol (mGy) 12.8 DLP: (mGycm) 266 Technique: Multiple 2 mm axial sections of the cervical spine have been obtained. The coronal and sagittal reconstructions have been obtained. 3-D reconstructions have been obtained. Low dose protocols were performed. One or more of the following dose reduction techniques were used; automated exposure control, adjustment of the mA and/or KV according to patient size, use of iterative reconstruction technique. Findings: Axial sections demonstrate intact base of the skull. C1 exhibit satisfactory relationship to the odontoid. No acute cervical vertebral body fracture seen. Alignment posterior spinous processes satisfactory. Impression: No acute cervical fracture. Dictated By: Tk Jerome MD Signed By: <Electronically signed by Tk Jerome MD in OV> 03/20/25 1338 Ordering Physician: Joe CHAVARRIA),Holden BOGGS Date of Service: 03/20/25 Procedure(s): XR knee LT 3V Accession Number(s): [id number] cc: Joe CHAVARRIA),Holden BOGGS; Tk Jerome MD~ Examination: Knee, left, 3 views Technique: Knee AP, lateral, oblique 3 views Date and time of exam: March 20, 2025, 1321 hours INDICATIONS: Ground-level fall today with injury to the knee, knee pain. FINDINGS: Prominent osteopenia. No fracture or dislocation. Small knee effusion. IMPRESSION: No fracture or dislocation Dictated By: Tk Jerome MD Signed By: <Electronically signed by Tk Jerome MD in OV> 03/20/25 1416 Ordering Physician: Dioni Soler MD Date of Service: 03/20/25 Procedure(s): XR chest 1V portable Accession Number(s): [id number] cc: Dioni Soler MD; Tk Jerome MD; NO PRIMARY/FAMILY,PHYSICIAN~ EXAMINATION: AP chest single view TECHNIQUE: AP portable upright chest single view Date and time: March 20, 2025, 1514 hours INDICATIONS: Cough and shortness of breath today. FINDINGS: Normal heart size Lungs are clear. Moderate osteopenia IMPRESSION: No active disease Dictated By: Tk Jerome MD Signed By: <Electronically signed by Tk Jerome MD in OV> 03/20/25 1524 Medication Administration(s) Medication Administration History Sodium Chloride (Ns) 1,000 mls @ 250 mls/hr IV .Q4H ONE Stop: 03/20/25 19:06 Last Admin: 03/20/25 15:32 Dose: 250 mls/hr Documented By: DO Discontinued Medications Dextrose (Dextrose 50%-Water Inj 50 Ml Syringe) 50 ml IVP X1 ONE Stop: 03/20/25 15:08 Last Admin: 03/20/25 15:44 Dose: 50 ml Documented By: DO Calcium Gluconate/Sodium Chloride (Calcium Gluc/Ns 1000mg Ivpb) 1 gm in 50 mls @ 50 mls/hr IV X1 ONE Stop: 03/20/25 16:06 Last Admin: 03/20/25 15:48 Dose: 50 mls/hr Documented By: DO Insulin Human Regular (Insulin Hum Regular 1 Unit/0.01 Ml (Per Unit)) 10 unit IV X1 ONE Stop: 03/20/25 15:08 Last Admin: 03/20/25 15:45 Dose: 10 unit Documented By: DO Co-signed By: EF Sodium Bicarbonate (Sodium Bicarb Inj 8.4% 1 Meq/Ml 50 Ml Vial) 50 meq IV X1 ONE Stop: 03/20/25 15:08 Last Admin: 03/20/25 15:29 Dose: 50 meq Documented By: DO Sodium Polystyrene Sulfonate (Sod Polystyrene Sulfon Susp 15 Gm/60 Ml Btl) 15 gm PO X1 ONE Stop: 03/20/25 15:08 Last Admin: 03/20/25 15:47 Dose: 15 gm Documented By: DO See above Diagnosis Diagnoses ruled out and/or further discussions: Bradycardia
--- NOTE | 2025-03-20 17:31 | EKG_ITS ---
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
--- NOTE | 2025-03-20 17:46 | PD.RESCONSUL ---
HPI Data of Consult Primary Care Provider: Physician No Primary/Family Consult Narrative History of present illness: Patient is a 79 year old female with PMH of essential hypertension, DM type 2, CKD stage III, GERD, vertigo who presents to ED today for ground level fall secondary to dizziness. Fell on her left knee and hit her head against the wall but denies LOC. Has been having recurring episodes of dizziness, at least once a day. Reports feeling like her heart slows down and has difficulty catching her breath. Worse when standing and bending over, improves after lying down for a few minutes. Describes as if the room is spinning. Continues to have urinary frequency and dysuria. Denies chest pain or pressure, shortness of breath, or palpitations. BP 95/69, HR 43. WBC 7.9, Hgb 10.4, sodium 135, potassium 5.5, bicarbonate 18.8, BUN 38, creatinine 2.6, magnesium 2.1. Troponin negative. BNP 651. EKG shows atrial fibrillation with slow ventricular rate, HR 43. No ST or T wave abnormalities noted. Orthostatic vitals negative however taken after given IVF. HR has improved to 50s-60s on exam. Given insulin 10 units x1, dextrose 50 mL, calcium gluconate, and Kayexalate 15 g x1. Recommend patient to stop metoprolol XL 25 mg prescribed by PCP as patient has bradycardia, also recommended to stop losartan as patient presented with hyperkalemia. Ordered another calcium gluconate 15 g x 1, repeat BMP to reevaluate potassium level before discharging. Past Medical History: as above Family History: Mother had diabetes, father passed from old age. Surgical History: Back surgery 2 years ago. Social History: Denies history of smoking, denies current alcohol use, denies recreational drug use Current Medications: amlodipine 10 mg daily, hydralazine 25 mg TID, gabapentin 300 mg TID, dicyclomine 10 mg BID, metoprolol XL 25 mg daily, ezetimibe 10 mg daily, meclizine 25 mg daily, losartan 100 mg daily Allergies: No known drug allergies cc:: cc: Exam Vital Signs Temp Pulse Resp BP Pulse Ox O2 Del Method 97.7 F 47 L 17 130/69 100 Room Air 03/20/25 15:23 03/20/25 15:23 03/20/25 15:23 03/20/25 15:23 03/20/25 15:23 03/20/25 15:23 Narrative Exam Physical Exam General: Awake and in no acute distress. Conversational and non-toxic appearing. HEENT: Normocephalic, atraumatic, mucous membranes moist. Heart: Regular rate and rhythm, normal S1 and S2, no murmurs appreciated. Lungs: Clear to auscultation with no wheezing or crackles. Abdomen: Soft, nondistended, nontender, positive bowel sounds. No guarding or rebound tenderness. Neurologic: Alert and oriented x3, no gross neurological deficit, and patient able to move all 4 extremities. Extremities: Mild pitting lower extremity edema at ankles bilaterally. Skin: No rash or ecchymoses. Results Labs 03/20/25 13:42 03/20/25 19:55 Labs: Short CBC 03/20/25 Range/Units 13:42 WBC 7.9 (3.6-11.0) Thou/mm3 Hgb 10.4 L (12.0-16.0) g/dL Hct 31.3 L (36.0-46.0) % Plt Count 260 (140-440) Thou/mm3 BMP 03/20/25 13:42 Sodium 135 L Potassium 5.5 H Chloride 106 Carbon Dioxide 18.8 L BUN 38 H Creatinine 2.6 H Glucose 303 H Calcium 8.6 Cardiac Enzymes 03/20/25 Range/Units 13:42 Troponin I < 0.020 (0.0-0.045) ng/mL Liver Function 03/20/25 Range/Units 13:42 Total Bilirubin 0.2 L (0.3-1.2) mg/dL AST 15 (0-34) U/L ALT 11 (10-49) U/L Alkaline Phosphatase 74 (46-116) U/L Albumin 3.7 (3.4-4.8) gm/dL Quality Measures Quality Measures none Advance care planning discussed with:: patient Medications Home Medications and Allergies Home Medications ?Medication ?Instructions ?Recorded ?Confirmed ?Type gabapentin 300 mg capsule 300 mg PO TID 03/02/23 10/14/24 History ezetimibe 10 mg tablet 10 mg PO QDAY 08/31/23 10/14/24 History tirzepatide 2.5 mg/0.5 mL 2.5 mg subcut QWEEK 08/31/23 10/14/24 History subcutaneous pen injector (Sol) dicyclomine 10 mg capsule 10 mg PO BID 09/09/24 10/14/24 History Allergies Allergy/AdvReac Type Severity Reaction Status Date / Time No Known Allergies Allergy Verified 10/14/24 15:10 Visit Medications Sodium Chloride (Ns) 1,000 mls @ 250 mls/hr IV .Q4H ONE Stop: 03/20/25 19:06 Last Admin: 03/20/25 15:32 Dose: 250 mls/hr Discontinued Medications Dextrose (Dextrose 50%-Water Inj 50 Ml Syringe) 50 ml IVP X1 ONE Stop: 03/20/25 15:08 Last Admin: 03/20/25 15:44 Dose: 50 ml Calcium Gluconate/Sodium Chloride (Calcium Gluc/Ns 1000mg Ivpb) 1 gm in 50 mls @ 50 mls/hr IV X1 ONE Stop: 03/20/25 16:06 Last Admin: 03/20/25 15:48 Dose: 50 mls/hr Insulin Human Regular (Insulin Hum Regular 1 Unit/0.01 Ml (Per Unit)) 10 unit IV X1 ONE Stop: 03/20/25 15:08 Last Admin: 03/20/25 15:45 Dose: 10 unit Sodium Bicarbonate (Sodium Bicarb Inj 8.4% 1 Meq/Ml 50 Ml Vial) 50 meq IV X1 ONE Stop: 03/20/25 15:08 Last Admin: 03/20/25 15:29 Dose: 50 meq Sodium Polystyrene Sulfonate (Sod Polystyrene Sulfon Susp 15 Gm/60 Ml Btl) 15 gm PO X1 ONE Stop: 03/20/25 15:08 Last Admin: 03/20/25 15:47 Dose: 15 gm Assessment & Plan Plan Patient is a 79-year-old female with past medical history of essential hypertension, type 2 diabetes, CKD stage III,, vertigo, atrial fibrillation who presents to the ED today for ground-level fall secondary to dizziness, also found to be bradycardic and hyperkalemic. Cardiology consulted as patient has symptomatic bradycardia and follows with Dr. Bassett outpatient. #Presyncope #Ground-level fall secondary to dizziness #Symptomatic bradycardia #A-fib with slow ventricular rate. #Hypotension #Hypokalemia #Vertigo Presented for ground-level fall secondary to dizziness. Denies any loss of consciousness. Heart rate was found to be in low 40s on presentation. Now improved to 60s. Dizziness possibly secondary to hypotension versus vertigo. Some home medications include amlodipine 10 mg daily, hydralazine 25 mg 3 times daily, gabapentin 300 mg 3 times daily, metoprolol XL 25 mg daily, losartan 100 mg daily. Per Cardiology clinic records, patient was previously discontinued from metoprolol and losartan due to same symptoms of dizziness and bradycardia but apparently restarted by PCP for blood pressure control. BP 95/69, HR 43. Potassium 5.5, magnesium 2.1, creatinine 2.6. BNP 651. Orthostatic vitals are negative. Hyperkalemia likely secondary to losartan with potassium in setting of worsening renal function. EKG shows atrial fibrillation with slow ventricular rate, HR 43, no ST or T wave abnormalities noted. Given insulin 10 units, dextrose 50 mL, calcium gluconate x 1, Kayexalate 15 g x 2. Plan: ? Stop losartan potassium 100 mg daily as patient has hyperkalemia ? Stop metoprolol XL 25 mg daily as patient is bradycardic - continue rest of the BP meds for now ? Follow-up in clinic in 1 week for further evaluation of blood pressure control and the A-fib with Holter monitor. #Hypertension #Type 2 diabetes #CKD stage III Thank you for your consultation, please do not hesitate to reach out if you have any question or concern Patient plan of care was discussed with the attending physician, Dr. Bassett. Lisa Nicole, PGY-1 Attending Provider Attestation/Addendum I have personally seen and examined the patient separately on the above date of service and discussed the plan of care with the resident. I reviewed the resident Dr. Lisa Nicole consultation progress note and agree with the resident findings and plan in the note above and have also edited the documentation to reflect my findings and plan. Trae Bassett M.D. Interventional Cardiology
[2025-03-20 20:39] LABS: Anion Gap 13 (7-16); BUN/Creatinine Ratio 18 Ratio (12-20); Blood Urea Nitrogen 41 mg/dL (9-23); Calcium 9.5 mg/dL (8.3-10.6); Carbon Dioxide 20.6 mMol/L (20.0-31.0); Cardiac Risk Estimate 3.4 RATIO (3.7-5.6); Chloride 110 mMol/L (98-107); Cholesterol 158 mg/dL (132-200); Creatinine (Component) 2.3 mg/dL (0.6-1.3); Estimated Creatinine Clearance 16.5 mL/min (>60); Free T4 (Free Thyroxine) 1.32 ng/dL (0.89-1.76); Glucose 124 mg/dL (74-106); HDL Cholesterol 47 mg/dL (40-60); LDL Cholesterol,Calculated 79 mg/dL (0-130); Osmolality,Calculated 297 (275-295); Potassium 4.3 mMol/L (3.4-5.1); Sodium 144 mMol/L (136-145); Thyroid Stimulating Hormone 1.91 uIU/mL (0.55-4.78); Triglycerides 160 mg/dL (30-150); eGFR 21 See Note
== END 2025-03-20 21:05 | disposition home or self-care (01) ==
PROVIDERS: Nurse Practitioner Primary Care; Emergency Provider Family Medicine
DX: R00.1 Bradycardia, unspecified (principal); E11.22 Type 2 diabetes mellitus with diabetic chronic kidney disease; E87.5 Hyperkalemia; E87.6 Hypokalemia; I12.9 Hypertensive chronic kidney disease with stage 1 through stage 4 chronic kidney disease, or unspecified chronic kidney disease; I48.91 Unspecified atrial fibrillation; N18.30 Chronic kidney disease, stage 3 unspecified; S19.9XXA Unspecified injury of neck, initial encounter; S09.90XA Unspecified injury of head, initial encounter; S89.92XA Unspecified injury of left lower leg, initial encounter; W22.01XA Walked into wall, initial encounter; Z79.4 Long term (current) use of insulin
CPT/HCPCS: 36415; 70450; 71045; 72125; 73562; 80048; 80053; 80061; 83036; 83735; 83880; 84439; 84443; 84484; 85025; 85610; 85730; 93005; 99285; J0613; J1815; J7030; A9270

== ENCOUNTER 2025-03-24 07:24 | Emergency (ER) | payer OTHER, MEDICAID, SELFPAY ==
[2025-03-24 07:24] VITALS: BMI 26.4
[2025-03-24 07:48] VITALS: BP 114/61; PULSE 50; RESP 18; TEMP 36.9; O2SAT 96
--- NOTE | 2025-03-24 08:01 | EKG_ITS ---
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
--- NOTE | 2025-03-24 08:01 | EDRME_ITS ---
Rapid Medical Screening Exam [facility] Arrival date/time: 03/24/25 07:24 79-year-old female with a history of hyper tension, hyperlipidemia, type 2 diabetes presents to the emergency room for recheck of her potassium. Patient was seen on Monday and was told to return to reassess her potassium and bradycardia I have greeted and performed a focused initial assessment of this patient. A comprehensive ED assessment and evaluation of the patient, analysis of all test results, and completion of the medical decision making process will be conducted by additional ED providers. Chief Complaint: General Adult/Misc Complain Time Seen by Provider: 03/24/25 07:28 Vital signs: Vital Signs Temperature 98.5 F 03/24/25 07:48 Pulse Rate 50 L 03/24/25 07:48 Respiratory Rate 18 03/24/25 07:48 Blood Pressure 114/61 03/24/25 07:48 Pulse Oximetry (%) 96 03/24/25 07:48 Oxygen Delivery Method Room Air 03/24/25 07:48 Vital signs reviewed by provider: Yes Exam: Strong and regular rhythm. S1 and S2 noted. Patient is bradycardic at 50 bpm Patient has clear bilateral lung sounds there is no wheezing or any abnormal breath sounds. Clinical Impression: Bradycardia/hyperkalemia/hypokalemia
[2025-03-24 08:26] LABS: Basophils # (Auto) 0.0 Thou/mm3 (0.0-0.2); Basophils % (Auto) 0 % (0-2.5); Eosinophils # (Auto) 0.2 Thou/mm3 (0.0-0.5); Eosinophils % (Auto) 3 % (0-10); Hematocrit 33.0 % (36.0-46.0); Hemoglobin 10.8 g/dL (12.0-16.0); Immature Granulocytes Auto 0.02 Thou/mm3 (0.00-0.00); Lymphocytes # (Auto) 1.6 Thou/mm3 (1.0-4.8); Lymphocytes % (Auto) 19 % (10-50); Mean Corpuscular HGB Conc 32.7 g/dl (31.0-37.0); Mean Corpuscular Hemoglobin 29.0 pg (25.0-35.0); Mean Corpuscular Volume 89 fL (80-100); Monocytes # (Auto) 0.4 Thou/mm3 (0.0-0.8); Monocytes % (Auto) 5 % (0-12); Neutrophils # (Auto) 6.0 Thou/mm3 (1.8-7.7); Neutrophils % (Auto) 73 % (37-80); Nucleated Red Blood Cell # 0.00 Thou/mm3 (0.00-0.00); Nucleated Red Blood Cell % 0 /100 WBC (0); Platelet Count 259 Thou/mm3 (140-440); RDW Standard Deviation 41.7 fL (36.4-46.3); Red Blood Count 3.73 Miln/mm3 (4.00-5.20); White Blood Count 8.2 Thou/mm3 (3.6-11.0)
[2025-03-24 08:40] LABS: B-Type Natriuretic Peptide 178 pg/mL (0-100)
[2025-03-24 08:45] LABS: Collection Type, Urine Clean Catch
[2025-03-24 08:52] LABS: Alanine Aminotransferase 8 U/L (10-49); Albumin, Serum 3.8 gm/dL (3.4-4.8); Albumin/Globulin Ratio 2.2 (1.2-2.2); Alkaline Phosphatase 74 U/L (46-116); Anion Gap 9 (7-16); Aspartate Amino Transferase 15 U/L (0-34); BUN/Creatinine Ratio 13 Ratio (12-20); Bilirubin,Total 0.4 mg/dL (0.3-1.2); Blood Urea Nitrogen 34 mg/dL (9-23); Calcium 8.4 mg/dL (8.3-10.6); Calcium (Corrected) 8.6 mg/dL (8.5-10.1); Carbon Dioxide 22.8 mMol/L (20.0-31.0); Chloride 110 mMol/L (98-107); Creatinine (Component) 2.6 mg/dL (0.6-1.3); Estimated Creatinine Clearance 14.8 mL/min (>60); Globulin 1.7 gm/dL (2.3-3.5); Glucose 232 mg/dL (74-106); Magnesium 1.4 mg/dL (1.6-2.6); Osmolality,Calculated 297 (275-295); Potassium 4.8 mMol/L (3.4-5.1); Sodium 142 mMol/L (136-145); Total Protein 5.5 gm/dL (5.7-8.2); Troponin I < 0.020 ng/mL (0.0-0.045); eGFR 18 See Note
[2025-03-24 08:56] LABS: Bilirubin,Urine Negative (Negative); Blood,Urine Trace (Negative); Clarity,Urine Clear (Clear/Hazy); Color,Urine Lt-Yellow (Lt Yel-Yel); Culture Indicated,Urine Not Indicated; Glucose, Urine 3+ (Negative); Hyaline Casts,Urine < 1 /hpf (0-1); Ketones,Urine Negative (Negative); Leukocyte Esterase,Urine Negative (Negative); Nitrite,Urine Negative (Negative); PH,Urine 6.5 (5.0-7.0); Protein,Urine 3+ (Neg - Trace); RBC,Urine 1 /hpf (0-3); Specific Gravity,Urine 1.018 (1.001-1.035); Squamous Epithelial Cell,Urine 3 /hpf (0-5); Urobilinogen,Urine Negative mg/dL (0.0-1.0); WBC,Urine 7 /hpf (0-5)
--- NOTE | 2025-03-24 09:54 | PC.NURSE ---
called from lobby and no answer
--- NOTE | 2025-03-24 09:59 | PC.NURSE ---
called from lobby and no answer. Pt not found inside the e.d. or outside
--- NOTE | 2025-03-24 10:14 | PC.NURSE ---
CALLED FROM LOBBY AND NO ANSWER
== END 2025-03-24 10:15 | disposition left against medical advice (07) ==
PROVIDERS: Nurse Practitioner Family; Emergency Provider Emergency Medicine; PCP Physician Assistant
DX: Z53.21 Procedure and treatment not carried out due to patient leaving prior to being seen by health care provider (principal)
CPT/HCPCS: 36415; 80053; 81001; 83735; 83880; 84484; 85025; 93005; 99282

== ENCOUNTER → 2025-04-10 | Outpatient (CLI) | payer OTHER, MEDICAID, SELFPAY ==
[2025-04-10 08:10] LABS: Collection Type, Urine Clean Catch
[2025-04-10 08:39] LABS: Basophils # (Auto) 0.0 Thou/mm3 (0.0-0.2); Basophils % (Auto) 1 % (0-2.5); Eosinophils # (Auto) 0.2 Thou/mm3 (0.0-0.5); Eosinophils % (Auto) 3 % (0-10); Hematocrit 34.7 % (36.0-46.0); Hemoglobin 11.5 g/dL (12.0-16.0); Immature Granulocytes Auto 0.04 Thou/mm3 (0.00-0.00); Lymphocytes # (Auto) 1.5 Thou/mm3 (1.0-4.8); Lymphocytes % (Auto) 23 % (10-50); Mean Corpuscular HGB Conc 33.1 g/dl (31.0-37.0); Mean Corpuscular Hemoglobin 29.1 pg (25.0-35.0); Mean Corpuscular Volume 88 fL (80-100); Monocytes # (Auto) 0.4 Thou/mm3 (0.0-0.8); Monocytes % (Auto) 6 % (0-12); Neutrophils # (Auto) 4.4 Thou/mm3 (1.8-7.7); Neutrophils % (Auto) 67 % (37-80); Nucleated Red Blood Cell # 0.00 Thou/mm3 (0.00-0.00); Nucleated Red Blood Cell % 0 /100 WBC (0); Platelet Count 283 Thou/mm3 (140-440); RDW Standard Deviation 43.2 fL (36.4-46.3); Red Blood Count 3.95 Miln/mm3 (4.00-5.20); White Blood Count 6.6 Thou/mm3 (3.6-11.0)
[2025-04-10 08:48] LABS: Bilirubin,Urine Negative (Negative); Blood,Urine Negative (Negative); Clarity,Urine Clear (Clear/Hazy); Color,Urine Colorless (Lt Yel-Yel); Culture Indicated,Urine Not Indicated; Glucose, Urine 1+ (Negative); Hyaline Casts,Urine < 1 /hpf (0-1); Ketones,Urine Negative (Negative); Leukocyte Esterase,Urine Negative (Negative); Nitrite,Urine Negative (Negative); PH,Urine 6.5 (5.0-7.0); Protein,Urine 2+ (Neg - Trace); RBC,Urine 2 /hpf (0-3); Specific Gravity,Urine 1.012 (1.001-1.035); Squamous Epithelial Cell,Urine < 1 /hpf (0-5); Urobilinogen,Urine Negative mg/dL (0.0-1.0); WBC,Urine 2 /hpf (0-5)
[2025-04-10 08:57] LABS: Ferritin 50 ng/mL (7.3-270.7); Iron 89 mcg/dL (50-170)
[2025-04-10 08:58] LABS: Vitamin B12 226 pg/mL (211-911); Vitamin D 25 Hydroxy Total 24.3 ng/mL (7.3-40.2)
[2025-04-10 09:16] LABS: Alanine Aminotransferase 10 U/L (10-49); Albumin, Serum 4.4 gm/dL (3.4-4.8); Albumin/Globulin Ratio 2.3 (1.2-2.2); Alkaline Phosphatase 83 U/L (46-116); Anion Gap 12 (7-16); Aspartate Amino Transferase 15 U/L (0-34); BUN/Creatinine Ratio 17 Ratio (12-20); Bilirubin,Total 0.3 mg/dL (0.3-1.2); Blood Urea Nitrogen 33 mg/dL (9-23); Calcium 9.4 mg/dL (8.3-10.6); Calcium (Corrected) 9.4 mg/dL (8.5-10.1); Carbon Dioxide 24.1 mMol/L (20.0-31.0); Cardiac Risk Estimate 4.6 RATIO (3.7-5.6); Chloride 108 mMol/L (98-107); Cholesterol 213 mg/dL (132-200); Creatinine (Component) 1.9 mg/dL (0.6-1.3); Globulin 1.9 gm/dL (2.3-3.5); Glucose 174 mg/dL (74-106); HDL Cholesterol 46 mg/dL (40-60); LDL Cholesterol,Calculated 114 mg/dL (0-130); Osmolality,Calculated 298 (275-295); Potassium 4.2 mMol/L (3.4-5.1); Sodium 144 mMol/L (136-145); Thyroid Stimulating Hormone 2.68 uIU/mL (0.55-4.78); Total Protein 6.3 gm/dL (5.7-8.2); Triglycerides 266 mg/dL (30-150); eGFR 27 See Note
[2025-04-10 09:20] LABS: Creatinine MALB Rnd Ur 48 mg/dL (30-125)
[2025-04-10 09:38] LABS: Microalbumin Creat Ratio 4167 mg/gCrea (<30); Microalbumin, Random Urine 2000 mg/L (0-300)
== END | disposition home or self-care (01) ==
LOC: COPL 07:30
PROVIDERS: PCP Physician Assistant; Referring Provider Physician Assistant; Visit Provider Physician Assistant
DX: I10 Essential (primary) hypertension (principal); E78.5 Hyperlipidemia, unspecified; E55.9 Vitamin D deficiency, unspecified; E11.65 Type 2 diabetes mellitus with hyperglycemia; D64.9 Anemia, unspecified
CPT/HCPCS: 36415; 80053; 80061; 81001; 82043; 82306; 82570; 82607; 82728; 83540; 84443; 85025